=== PATIENT | female | born 1940 | race Caucasian/White ===

== ENCOUNTER 2017-07-10 14:58 | Emergency (ER) | payer MEDICARE ==
--- NOTE | 2017-07-10 15:44 | ERPHSYRPT ---
- History of Present Illness Time Seen by Provider: 07/10/17 15:03 Source: patient, family (daughter, man with whom she has lived for 9 years) Patient Subjective Stated Complaint: pt states "my sugar has been running high" reports it was 219 at home. reports she has been hurting all over and burning up. Triage Nursing Assessment: pt is aox3, pupils perrl, pt is afebrile, pt is short of breath upon ambulation to the exam room, some expiratory wheezes are heard upon auscultation. radial pulses are strong and equal. abd is soft and non tender. an ostomy is present to the left lower quad, stoma is red, colostomy bag is empty at this time, no odor noted. minimal skin irriation/ red rash noted around the appliance. Physician History: CC: feels tired Hx: 76 y/o patient of Dr Chairez. longterm friend brought her to ER. States she has not been herself lately, maybe since picking up her medications from the drug store. Pt reports some headache and fever. No fall or injury. Nonsmoker. She has DM and thought maybe sugar was too high but it is not. Subjective fever. Recent ear drng but did not see doctor or take meds. No V/D. Normal urination. No abd pain. No chest pain. Not confused. More sleepy than usual and just not herself. Allergies/Adverse Reactions: alprazolam [From Xanax] Adverse Reaction (Mild, Verified 07/10/17 15:25) states "see bugs" acetaminophen [From Vicodin] Adverse Reaction (Verified 07/10/17 15:25) CONFUSED,MEAN hydrocodone bitartrate [From Vicodin] Adverse Reaction (Verified 07/10/17 15:25) CONFUSED,MEAN promethazine HCl [From Phenergan] Adverse Reaction (Verified 07/10/17 15:25) Home Medications: Benazepril HCl [Benazepril HCl] 20 mg PO DAILY 07/10/17 [History] Duloxetine HCl [Duloxetine HCl] 60 mg PO DAILY 07/10/17 [History] Gabapentin [Gabapentin] 300 mg PO TID 07/10/17 [History] Hydrocodone/Acetaminophen [Hydrocodone-Acetamin 5-325 mg] 5 mg PO Q4-6HPRN PRN 07/10/17 [History] Metformin HCl [Metformin HCl] 500 mg PO BID 07/10/17 [History] Omeprazole [Omeprazole] 40 mg PO DAILY 07/10/17 [History] Pregabalin [Lyrica 75 mg Cap] 75 mg PO TID 07/10/17 [History] Simvastatin [Simvastatin] 20 mg PO DAILY 07/10/17 [History] Hx Tetanus, Diphtheria Vaccination/Date Given: Yes Hx Influenza Vaccination/Date Given: No Hx Pneumococcal Vaccination/Date Given: No Immunizations Up to Date: Yes - Review of Systems Constitutional: Fever (subjective), Fatigue, Malaise Eyes: No Symptoms, No Vision Changes Ears, Nose, & Throat: Ear Discharge (gone now) Respiratory: No Cough, No Dyspnea Cardiac: No Chest Pain Abdominal/Gastrointestinal: No Abdominal Pain, No Nausea, No Vomiting, No Diarrhea Genitourinary Symptoms: No Dysuria Skin: No Rash Neurological: Headache, No Dizziness, No Focal Weakness, No Parasthesia All Other Systems: Reviewed and Negative - Past Medical History Pertinent Past Medical History: Yes Neurological History: No Pertinent History ENT History: Other Cardiac History: High Cholesterol, Hypertension Respiratory History: No Pertinent History Endocrine Medical History: Diabetes Type II Musculoskeletal History: No Pertinent History GI Medical History: Other History: No Pertinent History Psycho-Social History: No Pertinent History Female Reproductive Disorders: No Pertinent History Other Medical History: bowel obstruction, pt poor historian - Past Surgical History Past Surgical History: Yes Neuro Surgical History: No Pertinent History Cardiac: No Pertinent History Respiratory: No Pertinent History Gastrointestinal: Appendectomy, Cholecystectomy Genitourinary: No Pertinent History Musculoskeletal: No Pertinent History Female Surgical History: Hysterectomy Other Surgical History: eye surgery. OSTOMY PLACED DUE TO BOWEL OBSTRUCTION, pt poor historian - Social History Smoking Status: Never smoker Exposure to second hand smoke: Yes Drug Use: none Patient Lives Alone: No - Female History Hx Now: No - Nursing Vital Signs Nursing Vital Signs: Initial Vital Signs Temperature 98.1 F 07/10/17 15:10 Pulse Rate 101 H 07/10/17 15:10 Respiratory Rate 20 07/10/17 15:10 Blood Pressure 142/104 07/10/17 15:10 O2 Sat by Pulse Oximetry 97 07/10/17 15:10 Pain Scale Pain Intensity 0 - Physical Exam General Appearance: alert, obese, other (pleasant lady, hard of hearing) Eye Exam: PERRL/EOMI Ears, Nose, Throat Exam: moist mucous membranes Neck Exam: normal inspection, non-tender, supple Respiratory Exam: normal breath sounds Cardiovascular Exam: regular rate/rhythm Gastrointestinal/Abdomen Exam: soft, other (viable ostomy), No tenderness, No distention, No mass Extremity Exam: normal inspection, normal range of motion Neurologic Exam: alert, oriented x 3, cooperative, manager of marketing II-XII nml as tested, sensation nml, No motor deficits Skin Exam: warm, dry, No rash SpO2 Interpretation: normal SpO2: 97 Oxygen Delivery: Room Air - Course Nursing assessment & vital signs reviewed: Yes Ordered Tests: Active Orders 24 hr Category Date Time Status Cath for Specimen-Straight STAT Care 07/10/17 15:37 Active IV Insertion STAT Care 07/10/17 15:36 Active CBC W DIFF Stat Lab 07/10/17 16:00 Completed CMP Stat Lab 07/10/17 16:00 Completed CULTURE,URINE Stat Lab 07/10/17 16:25 Received Lactic Acid Stat Lab 07/10/17 16:12 Completed UA W/ MICROSCOPIC Stat Lab 07/10/17 16:25 Completed Medication Summary Generic Name Dose Route Start Last Admin Trade Name Freq PRN Reason Stop Dose Admin Sodium Chloride 1,000 mls @ 50 mls/hr 07/10/17 15:45 07/10/17 16:19 Sodium Chloride 0.9% 1000 Ml IV 08/09/17 15:44 50 mls/hr .Q20H ANASI Administration Ceftriaxone Sodium/Dextrose 1 g in 50 mls @ 100 mls/hr 07/10/17 17:00 17:04 Rocephin 1 Gm-D5w 50 Ml Bag IV 07/10/17 17:29 100 mls/hr STAT STA Administration Discontinued Medications Generic Name Dose Route Start Last Admin Trade Name Freq PRN Reason Stop Dose Admin Ceftriaxone Sodium/Dextrose Confirm 07/10/17 17:02 Rocephin 1 Gm-D5w 50 Ml Bag Administered 07/10/17 17:03 Dose 1 g in 50 mls @ ud IV .STK-MED ONE Lab/Rad Data: Laboratory Result Diagrams 07/10/17 16:00 07/10/17 16:00 Laboratory Results 07/10/17 07/10/17 07/10/17 Range/Units 16:25 16:12 16:00 WBC (4.0-10.5) K/mm3 RBC (4.1-5.4) M/mm3 Hgb (12.0-16.0) gm/dl Hct (35-47) % MCV (78-100) fl MCH (26-32) pg MCHC (32-36) g/dl RDW (11.5-14.0) % Plt Count (150-450) K/mm3 MPV (6-9.5) fl Gran % (36.0-66.0) % Lymphocytes % (24.0-44.0) % Monocytes % (0.0-12.0) % Eosinophils % (0.00-5.0) % Basophils % (0.0-0.4) % Basophils # (0-0.4) Sodium 143 (136-145) mEq/L Potassium 3.6 (3.5-5.1) mEq/L Chloride 106 (98-107) mEq/L Carbon Dioxide 25.2 (21-32) mEq/L Anion Gap 15.3 H (5-15) MEQ/L BUN 13 (9-20) mg/dL Creatinine 1.21 (0.55-1.30) mg/dl Estimated GFR 46 ML/MIN Glucose 115 H (70-110) MG/DL Lactic Acid 1.5 (0.4-2.0) Calcium 8.7 (8.5-10.1) mg/dL Total Bilirubin 0.20 (0.2-1.0) mg/dL AST 19 (15-37) U/L ALT 20 (12-78) U/L Alkaline Phosphatase 80 (46-116) U/L Serum Total Protein 8.0 (6.4-8.2) gm/dL Albumin 3.4 (3.4-5.0) g/dL Ur Collection Type CATH Urine Color YELLOW (YELLOW) Urine Appearance HAZY (CLEAR) Urine pH 5.0 (5-6) Ur Specific [place] 1.010 (1.005-1.025) Urine Protein TRACE (Negative) Urine Ketones NEGATIVE (NEGATIVE) Urine Blood 50 (0-5) Luis/ul Urine Nitrite POSITIVE (NEGATIVE) Urine Bilirubin NEGATIVE (NEGATIVE) Urine Urobilinogen NORMAL (0-1) mg/dL Ur Leukocyte Esterase 1+ (NEGATIVE) Urine Microscopic RBC 2-5 (0-2) /HPF Urine Microscopic WBC 10-15 (0-5) /HPF Ur Epithelial Cells MODERATE (FEW) /HPF Urine Bacteria MANY (NEGATIVE) /HPF Urine Mucus MODERATE (NEGATIVE) /HPF Urine Culture Reflexed YES (NO) Urine Glucose NEGATIVE (NEGATIVE) mg/dL Specimen Received 07/10/17 1625 07/10/17 Range/Units 16:00 WBC 8.9 (4.0-10.5) K/mm3 RBC 4.07 L (4.1-5.4) M/mm3 Hgb 12.9 (12.0-16.0) gm/dl Hct 40.5 (35-47) % MCV 99.5 (78-100) fl MCH 31.6 (26-32) pg MCHC 31.9 L (32-36) g/dl RDW 14.9 H (11.5-14.0) % Plt Count 261 (150-450) K/mm3 MPV 11.2 H (6-9.5) fl Gran % 74.9 H (36.0-66.0) % Lymphocytes % 17.7 L (24.0-44.0) % Monocytes % 6.3 (0.0-12.0) % Eosinophils % 0.9 (0.00-5.0) % Basophils % 0.2 (0.0-0.4) % Basophils # 0.02 (0-0.4) Sodium (136-145) mEq/L Potassium (3.5-5.1) mEq/L Chloride (98-107) mEq/L Carbon Dioxide (21-32) mEq/L Anion Gap (5-15) MEQ/L BUN (9-20) mg/dL Creatinine (0.55-1.30) mg/dl Estimated GFR ML/MIN Glucose (70-110) MG/DL Lactic Acid (0.4-2.0) Calcium (8.5-10.1) mg/dL Total Bilirubin (0.2-1.0) mg/dL AST (15-37) U/L ALT (12-78) U/L Alkaline Phosphatase (46-116) U/L Serum Total Protein (6.4-8.2) gm/dL Albumin (3.4-5.0) g/dL Ur Collection Type Urine Color (YELLOW) Urine Appearance (CLEAR) Urine pH (5-6) Ur Specific [place] (1.005-1.025) Urine Protein (Negative) Urine Ketones (NEGATIVE) Urine Blood (0-5) Luis/ul Urine Nitrite (NEGATIVE) Urine Bilirubin (NEGATIVE) Urine Urobilinogen (0-1) mg/dL Ur Leukocyte Esterase (NEGATIVE) Urine Microscopic RBC (0-2) /HPF Urine Microscopic WBC (0-5) /HPF Ur Epithelial Cells (FEW) /HPF Urine Bacteria (NEGATIVE) /HPF Urine Mucus (NEGATIVE) /HPF Urine Culture Reflexed (NO) Urine Glucose (NEGATIVE) mg/dL Specimen Received - Progress Progress Note: 07/10/17 15:43 Nonspecific symptoms. No focal neurological deficits. Maybe worse when picked up meds. They do not know any of her meds. Think she takes 6 kinds. Pharmacy records show [facility] pick[facility] of norco and lyrica recently. Will check labs and UA. CT head not indicated at present. 07/10/17 17:18 Doing well. Not confused. Wants to go home. Pt and daughter given test results. ADvised cut norco to half pill. Cut lyrica from TID to BID. Rx keflex for UTI. Follow up with Dr Chairez. Counseled pt/family regarding: lab results, diagnosis, need for follow-up - Departure Time of Disposition: 17:18 Departure Disposition: Home Clinical Impression: UTI (urinary tract infection) Condition: Stable Critical Care Time: No Referrals: MARKY CHAIREZ [Primary Care Provider] - Instructions: Urinary Tract Infection, Adult (DC) Additional Instructions: Cut norco to half tablet each dose. Change lyrica form three times a day to two times a day. Rx keflex to start tomorrow for UTI. Follow up with Dr Chairez next week. Prescriptions: Cephalexin Mh 500 mg [Keflex 500 mg] 1 cap PO QID #28 capsule
[2017-07-10] MEDS ORDERED: Sodium Chloride 0.9% 1000 ML 1,000 ML IV SCH (15:45)
[2017-07-10] MEDS ORDERED: Sodium Chloride 0.9% 1000 ML 1,000 ML ONE (16:03)
[2017-07-10 16:13] LABS: BASOPHIL % 0.2 % (0.0-0.4); Basophil (Absolute #) 0.02 (0-0.4); Eosinophil % 0.9 % (0.00-5.0); Eosinophil (Absolute #) 0.08 (0-0.5); Granulocyte Absolute (ANC) 6.67 (1.4-6.9); Granulocytes % 74.9 % (36.0-66.0); Hematocrit 40.5 % (35-47); Hemoglobin 12.9 gm/dl (12.0-16.0); Lymphocyte (Absolute #) 1.58 (1.0-4.6); Lymphocytes % 17.7 % (24.0-44.0); Mean Cell Volume 99.5 fl (78-100); Mean Corpuscular Hgb Concent. 31.9 g/dl (32-36); Mean Platelet Volume 11.2 fl (6-9.5); Monocyte (Absolute #) 0.56 (0.0-1.3); Monocytes % 6.3 % (0.0-12.0); Platelet Count 261 K/mm3 (150-450); Red Blood Count 4.07 M/mm3 (4.1-5.4); Red Cell Distribution Width 14.9 % (11.5-14.0); White Blood Count 8.9 K/mm3 (4.0-10.5)
[2017-07-10 16:21] VITALS: PULSE 90
[2017-07-10 16:30] LABS: Mean Corpuscular Hemoglobin 31.6 pg (26-32)
[2017-07-10 16:47] LABS: Appearance HAZY (CLEAR); Bilirubin NEGATIVE (NEGATIVE); Glucose NEGATIVE (NEGATIVE); Ketones NEGATIVE (NEGATIVE); Leukocyte Esterase 1+ (NEGATIVE); Nitrite POSITIVE (NEGATIVE); Protein,Urine Dip TRACE (Negative); Urobilinogen NORMAL mg/dL (0-1)
[2017-07-10 16:48] LABS: Bacteria MANY /HPF (NEGATIVE); Blood 50 Ery/ul (0-5); Epithelial Cells MODERATE /HPF (FEW); Mucus MODERATE /HPF (NEGATIVE)
[2017-07-10] MEDS ORDERED: ROCEPHIN 1 Gm-D5w 50 ml Bag** 1 G/50 ML IVPB IV STA (17:00)
[2017-07-10] MEDS ORDERED: ROCEPHIN 1 Gm-D5w 50 ml Bag** 1 G/50 ML IVPB IV ONE (17:02)
[2017-07-10 17:13] LABS: ALBUMIN 3.4 g/dL (3.4-5.0); ANION GAP 15.3 MEQ/L (5-15); BILIRUBIN,TOTAL 0.2 mg/dL (0.2-1.0); Calcium 8.7 mg/dL (8.5-10.1); Carbon Dioxide 25.2 mEq/L (21-32); Creatinine 1 1.21 mg/dl (0.55-1.30); Potassium 3.6 mEq/L (3.5-5.1)
[2017-07-10 19:01] VITALS: BP 131/70; O2SAT 95
== END 2017-07-10 19:01 | disposition home or self-care (01) ==
LOC: ED 14:58
DX: N39.0 Urinary tract infection, site not specified (principal); E11.9 Type 2 diabetes mellitus without complications; Z79.4 Long term (current) use of insulin; I10 Essential (primary) hypertension; Z79.899 Other long term (current) drug therapy
CPT/HCPCS: 36000; 36415; 80053; 81000; 82962; 83605; 85025; 87077; 87086; 87186; 96360; 96361; 96365; 99284; J0696; P9612

== ENCOUNTER 2017-07-22 14:10 | Inpatient (IN) | payer MEDICARE ==
[2017-07-22 14:47] LABS: Lactic Acid 1.5 (0.4-2.0); VBG BASE EXCESS -1.3 (-2.0-2.0); VBG CARBOXYHEMOGLOBIN 2.8 % T HGB (0.0-6.9); VBG HCO3- 23.7 meq/L (22-28); VBG HEMOGLOBIN 13.6; VBG PCO2 40 mm/Hg (42-55); VBG PO2 38 mm/Hg (25-40); VBG POTASSIUM 3.6 (3.5-5.1); VBG pH 7.38 (7.32-7.42)
[2017-07-22] MEDS ORDERED: Sodium Chloride 0.9% 1000 ML 1,000 ML (14:54)
[2017-07-22] MEDS: Sodium Chloride 0.9% 1000 ML 1,000 ML IV ×2 (14:55→18:45)
[2017-07-22] MEDS ORDERED: DUONEB 0.5-3 MG/3 ml Neb IH (15:00)
[2017-07-22 15:02] LABS: BASOPHIL % 0.2 % (0.0-0.4); Basophil (Absolute #) 0.01 (0-0.4); Eosinophil % 1.4 % (0.00-5.0); Eosinophil (Absolute #) 0.06 (0-0.5); Granulocyte Absolute (ANC) 2.42 (1.4-6.9); Granulocytes % 57.3 % (36.0-66.0); Hemoglobin 12.6 gm/dl (12.0-16.0); Lymphocyte (Absolute #) 1.46 (1.0-4.6); Lymphocytes % 34.5 % (24.0-44.0); Mean Cell Volume 98.8 fl (78-100); Mean Corpuscular Hemoglobin 31.1 pg (26-32); Mean Corpuscular Hgb Concent. 31.5 g/dl (32-36); Mean Platelet Volume 11.2 fl (6-9.5); Monocyte (Absolute #) 0.28 (0.0-1.3); Monocytes % 6.6 % (0.0-12.0); Platelet Count 242 K/mm3 (150-450); Red Blood Count 4.05 M/mm3 (4.1-5.4); White Blood Count 4.2 K/mm3 (4.0-10.5)
[2017-07-22] MEDS: DUONEB 0.5-3 MG/3 ml Neb IH (15:03)
[2017-07-22 15:13] LABS: ALBUMIN 3.3 g/dL (3.4-5.0); ALKALINE PHOSPHATASE 78 U/L (46-116); ANION GAP 14.2 MEQ/L (5-15); BLOOD UREA NITROGEN 10 mg/dL (9-20); CHLORIDE 109 mEq/L (98-107); Calcium 7.9 mg/dL (8.5-10.1); Creatinine 1 1.01 mg/dl (0.55-1.30); EST GLOMERULAR FILTRATION RATE 57 ML/MIN; Glucose 135 MG/DL (70-110); Potassium 3.6 mEq/L (3.5-5.1); SGOT/AST 33 U/L (15-37); SGPT/ALT 30 U/L (12-78); SODIUM 144 mEq/L (136-145); Total Protein 7.2 gm/dL (6.4-8.2)
[2017-07-22] MEDS ORDERED: solu-MEDROL 125 MG (15:19)
[2017-07-22 15:21] LABS: NT PRO BNP 41 pg/ml (0-450)
[2017-07-22 15:24] LABS: ADD MANUAL DIFF? YES (NO)
[2017-07-22] MEDS: solu-MEDROL 125 MG IV ×3 (15:31→23:45)
[2017-07-22 16:00] LABS: BAND 1 % (0.0-2.0); Lymphocytes 31 % (24-44); Monocyte 4 % (0.0-12.0); Neutrophils 64 % (36.0-66.0); Total Cells Counted 100
[2017-07-22 16:01] LABS: Platelet Estimate NORMAL (NORMAL)
[2017-07-22 18:05] LABS: HEMOGLOBIN A1C 6.3 (4.5-6.2)
[2017-07-22] MEDS: ROCEPHIN 1 Gm-D5w 50 ml Bag** 1 G/50 ML IVPB IV (18:13)
[2017-07-22] MEDS ORDERED: Zocor 10MG PO (23:00)
[2017-07-22] MEDS ORDERED: Zanaflex 4 MG PO (23:00)
[2017-07-22] MEDS ORDERED: Lopressor 25MG Tab PO (23:00)
[2017-07-22] MEDS ORDERED: REMERON 30 MG PO (23:00)
[2017-07-22] MEDS ORDERED: DESYREL 50 MG PO (23:00)
[2017-07-22] MEDS ORDERED: zyPREXA 5MG TABLET PO (23:00)
[2017-07-22] MEDS ORDERED: Tegretol 200 MG PO (23:00)
[2017-07-22] MEDS ORDERED: Nitrostat 0.4 MG Tablet SL (23:00)
[2017-07-22] MEDS: LYRICA 75 MG CAP PO (23:45)
[2017-07-22] MEDS: Ambien 5 MG Tablet PO (23:46)
[2017-07-23 04:59] LABS: BASOPHIL % 0.6 % (0.0-0.4); Basophil (Absolute #) 0.02 (0-0.4); Eosinophil (Absolute #) 0 (0-0.5); Granulocytes % 72.5 % (36.0-66.0); Hematocrit 40.3 % (35-47); Hemoglobin 12.9 gm/dl (12.0-16.0); Lymphocyte (Absolute #) 0.81 (1.0-4.6); Lymphocytes % 25.6 % (24.0-44.0); Mean Cell Volume 99.3 fl (78-100); Mean Platelet Volume 11.8 fl (6-9.5); Monocyte (Absolute #) 0.04 (0.0-1.3); Monocytes % 1.3 % (0.0-12.0); Platelet Count 244 K/mm3 (150-450); Red Blood Count 4.06 M/mm3 (4.1-5.4); Red Cell Distribution Width 15.5 % (11.5-14.0); White Blood Count 3.2 K/mm3 (4.0-10.5)
[2017-07-23 05:01] LABS: ADD MANUAL DIFF? NO (NO); Mean Corpuscular Hemoglobin 31.7 pg (26-32)
[2017-07-23] MEDS: solu-MEDROL 125 MG IV ×5 (05:34→23:43)
[2017-07-23 06:10] LABS: ALBUMIN 3.1 g/dL (3.4-5.0); ALKALINE PHOSPHATASE 70 U/L (46-116); ANION GAP 17.2 MEQ/L (5-15); BLOOD UREA NITROGEN 11 mg/dL (9-20); CHLORIDE 107 mEq/L (98-107); Calcium 7.9 mg/dL (8.5-10.1); Carbon Dioxide 21.3 mEq/L (21-32); Creatinine 1 1.16 mg/dl (0.55-1.30); EST GLOMERULAR FILTRATION RATE 48 ML/MIN; Glucose 272 MG/DL (70-110); SGOT/AST 32 U/L (15-37); SGPT/ALT 29 U/L (12-78); SODIUM 142 mEq/L (136-145); Total Protein 7.6 gm/dL (6.4-8.2)
[2017-07-23] MEDS ORDERED: Sodium Chloride 0.9% 1000 ML 1,000 ML (06:26)
[2017-07-23] MEDS: Sodium Chloride 0.9% 1000 ML 1,000 ML IV ×2 (06:26→21:22)
[2017-07-23] MEDS: DUONEB 0.5-3 MG/3 ml Neb IH (06:45)
[2017-07-23] MEDS: NORCO 5/325 MG PO ×2 (07:48→19:20)
[2017-07-23] MEDS: NovoLOG Insulin SQ ×2 (07:49→11:56)
[2017-07-23] MEDS: ROCEPHIN 1 Gm-D5w 50 ml Bag** 1 G/50 ML IVPB IV (09:54)
[2017-07-23] MEDS: Protonix 40MG Tablet PO (09:55)
[2017-07-23] MEDS: Lotensin 10 MG PO (09:55)
[2017-07-23] MEDS: LYRICA 75 MG CAP PO ×2 (09:55→21:23)
[2017-07-23 10:23] LABS: TROPONIN < 0.017 ng/ml (0.000-0.056)
[2017-07-23 10:26] LABS: INFLUENZA B NEGATIVE (NEGATIVE); RESPIRATORY SYNCTIAL VIRUS NEGATIVE (Negative)
[2017-07-23] MEDS: Zithromax 500 MG/ 250 ML NaCl Premix 500 MG/250 ML IVPB IV (10:26)
[2017-07-23 10:28] LABS: INFLUENZA A POSITIVE (NEGATIVE)
[2017-07-23] MEDS: OSELTAMIVIR PHOSPHATE 30 MG CAP PO ×2 (11:23→21:23)
[2017-07-23] MEDS: ZOCOR 20MG PO (21:23)
[2017-07-23] MEDS: Ambien 5 MG Tablet PO (21:24)
[2017-07-24] MEDS: solu-MEDROL 125 MG IV ×3 (05:24→17:21)
[2017-07-24] MEDS: LYRICA 75 MG CAP PO ×2 (07:55→21:05)
[2017-07-24] MEDS: Lotensin 10 MG PO (07:55)
[2017-07-24] MEDS: Sodium Chloride 0.9% 1000 ML 1,000 ML IV ×2 (07:55→21:04)
[2017-07-24] MEDS: Protonix 40MG Tablet PO (07:55)
[2017-07-24] MEDS: ROCEPHIN 1 Gm-D5w 50 ml Bag** 1 G/50 ML IVPB IV (07:55)
[2017-07-24] MEDS: OSELTAMIVIR PHOSPHATE 30 MG CAP PO ×2 (07:56→21:05)
[2017-07-24] MEDS: NORCO 5/325 MG PO ×2 (08:21→21:05)
[2017-07-24] MEDS: Zithromax 500 MG/ 250 ML NaCl Premix 500 MG/250 ML IVPB IV (08:40)
[2017-07-24] MEDS: Cymbalta 30 MG Capsule PO (11:48)
[2017-07-24] MEDS: NovoLOG Insulin SQ ×2 (11:48→21:29)
[2017-07-24] MEDS: NEURONTIN 300 MG PO ×2 (15:29→21:05)
[2017-07-24] MEDS: ZOCOR 20MG PO (21:05)
[2017-07-24] MEDS: Ambien 5 MG Tablet PO (21:12)
[2017-07-25] MEDS: solu-MEDROL 125 MG IV ×5 (00:02→23:26)
[2017-07-25 06:18] LABS: ADD MANUAL DIFF? YES (NO); Granulocyte Absolute (ANC) 8.48 (1.4-6.9); Hematocrit 35.1 % (35-47); Hemoglobin 11.4 gm/dl (12.0-16.0); Mean Cell Volume 98.6 fl (78-100); Mean Corpuscular Hgb Concent. 32.5 g/dl (32-36); Mean Platelet Volume 11.9 fl (6-9.5); Platelet Count 199 K/mm3 (150-450); Red Blood Count 3.56 M/mm3 (4.1-5.4); Red Cell Distribution Width 15.4 % (11.5-14.0); White Blood Count 9.5 K/mm3 (4.0-10.5)
[2017-07-25 06:34] LABS: ALBUMIN 2.8 g/dL (3.4-5.0); ALKALINE PHOSPHATASE 59 U/L (46-116); ANION GAP 13.5 MEQ/L (5-15); BLOOD UREA NITROGEN 20 mg/dL (9-20); CHLORIDE 110 mEq/L (98-107); Calcium 7.4 mg/dL (8.5-10.1); Carbon Dioxide 22.3 mEq/L (21-32); Creatinine 1 0.99 mg/dl (0.55-1.30); EST GLOMERULAR FILTRATION RATE 58 ML/MIN; Glucose 230 MG/DL (70-110); SGOT/AST 50 U/L (15-37); SGPT/ALT 47 U/L (12-78); SODIUM 142 mEq/L (136-145)
[2017-07-25] MEDS: Sodium Chloride 0.9% 1000 ML 1,000 ML IV ×2 (06:58→17:39)
[2017-07-25 07:32] LABS: Lymphocytes 11 % (24-44); Monocyte 2 % (0.0-12.0); Neutrophils 87 % (36.0-66.0); Total Cells Counted 100
[2017-07-25 07:33] LABS: ANISOCYTOSIS 1+; Platelet Estimate NORMAL (NORMAL); Poikilocytosis 1+; Polychromasia RARE
[2017-07-25] MEDS: NovoLOG Insulin SQ ×3 (07:50→21:25)
[2017-07-25] MEDS: OSELTAMIVIR PHOSPHATE 30 MG CAP PO ×2 (09:25→21:25)
[2017-07-25] MEDS: LYRICA 75 MG CAP PO ×2 (09:25→21:24)
[2017-07-25] MEDS: Protonix 40MG Tablet PO (09:25)
[2017-07-25] MEDS: ROCEPHIN 1 Gm-D5w 50 ml Bag** 1 G/50 ML IVPB IV (09:25)
[2017-07-25] MEDS: NEURONTIN 300 MG PO ×3 (09:25→21:24)
[2017-07-25] MEDS: Lotensin 10 MG PO (09:25)
[2017-07-25] MEDS: Zithromax 500 MG/ 250 ML NaCl Premix 500 MG/250 ML IVPB IV (10:27)
[2017-07-25] MEDS: DUONEB 0.5-3 MG/3 ml Neb IH (12:09)
[2017-07-25] MEDS: Cymbalta 30 MG Capsule PO (12:13)
[2017-07-25] MEDS: ZOCOR 20MG PO (21:24)
[2017-07-25] MEDS: Ambien 5 MG Tablet PO (21:24)
[2017-07-26] MEDS: NORCO 5/325 MG PO ×2 (01:56→23:31)
[2017-07-26] MEDS: solu-MEDROL 125 MG IV ×4 (05:34→23:31)
[2017-07-26 05:54] LABS: Granulocyte Absolute (ANC) 7.09 (1.4-6.9); Hematocrit 34.5 % (35-47); Hemoglobin 11.3 gm/dl (12.0-16.0); Mean Cell Volume 96.9 fl (78-100); Mean Corpuscular Hemoglobin 31.7 pg (26-32); Mean Corpuscular Hgb Concent. 32.8 g/dl (32-36); Mean Platelet Volume 11.9 fl (6-9.5); Platelet Count 239 K/mm3 (150-450); Red Blood Count 3.56 M/mm3 (4.1-5.4); White Blood Count 8.2 K/mm3 (4.0-10.5)
[2017-07-26 06:01] LABS: ALBUMIN 2.8 g/dL (3.4-5.0); ALKALINE PHOSPHATASE 59 U/L (46-116); ANION GAP 12.7 MEQ/L (5-15); BLOOD UREA NITROGEN 21 mg/dL (9-20); CHLORIDE 109 mEq/L (98-107); Calcium 7.6 mg/dL (8.5-10.1); Carbon Dioxide 25.3 mEq/L (21-32); Creatinine 1 1.16 mg/dl (0.55-1.30); EST GLOMERULAR FILTRATION RATE 48 ML/MIN; Glucose 283 MG/DL (70-110); Potassium 3.5 mEq/L (3.5-5.1); SGOT/AST 42 U/L (15-37); SGPT/ALT 63 U/L (12-78); SODIUM 144 mEq/L (136-145); Total Protein 6.2 gm/dL (6.4-8.2)
[2017-07-26 06:06] LABS: ADD MANUAL DIFF? YES (NO)
[2017-07-26 07:09] LABS: BAND 3 % (0.0-2.0); Lymphocytes 10 % (24-44); Metamyelocyte 2 %; Monocyte 1 % (0.0-12.0); Neutrophils 84 % (36.0-66.0); Nucleated Red Blood Cell 1 %; Total Cells Counted 100
[2017-07-26 07:11] LABS: ANISOCYTOSIS 1+; Platelet Estimate NORMAL (NORMAL); Tear Drop Cells 1+
[2017-07-26] MEDS: NovoLOG Insulin SQ ×3 (07:52→21:10)
[2017-07-26] MEDS: ROCEPHIN 1 Gm-D5w 50 ml Bag** 1 G/50 ML IVPB IV (07:53)
[2017-07-26] MEDS: OSELTAMIVIR PHOSPHATE 30 MG CAP PO ×2 (09:45→21:10)
[2017-07-26] MEDS: Lotensin 10 MG PO (09:45)
[2017-07-26] MEDS: LYRICA 75 MG CAP PO ×2 (09:45→21:10)
[2017-07-26] MEDS: NEURONTIN 300 MG PO ×3 (09:46→21:10)
[2017-07-26] MEDS: Protonix 40MG Tablet PO (09:46)
[2017-07-26] MEDS: NORVASC 5 MG PO (09:46)
[2017-07-26] MEDS: Zithromax 500 MG/ 250 ML NaCl Premix 500 MG/250 ML IVPB IV (09:47)
[2017-07-26] MEDS: ZOCOR 20MG PO (21:10)
[2017-07-26] MEDS: Ambien 5 MG Tablet PO (21:11)
[2017-07-27] MEDS: solu-MEDROL 125 MG IV ×2 (05:30→12:00)
[2017-07-27] MEDS: DUONEB 0.5-3 MG/3 ml Neb IH (07:30)
[2017-07-27] MEDS: NovoLOG Insulin SQ ×4 (08:22→21:37)
[2017-07-27] MEDS: NEURONTIN 300 MG PO ×3 (11:59→21:30)
[2017-07-27] MEDS: Protonix 40MG Tablet PO (11:59)
[2017-07-27] MEDS: Lantus Insulin SQ (11:59)
[2017-07-27] MEDS: LYRICA 75 MG CAP PO ×2 (11:59→21:29)
[2017-07-27] MEDS: NORVASC 5 MG PO (11:59)
[2017-07-27] MEDS: Lotensin 10 MG PO (11:59)
[2017-07-27] MEDS: ROCEPHIN 1 Gm-D5w 50 ml Bag** 1 G/50 ML IVPB IV (12:01)
[2017-07-27] MEDS: OSELTAMIVIR PHOSPHATE 30 MG CAP PO ×2 (12:02→21:29)
[2017-07-27] MEDS: Zithromax 500 MG/ 250 ML NaCl Premix 500 MG/250 ML IVPB IV (13:12)
[2017-07-27] MEDS: Zithromax 250 MG TABLET PO (16:53)
[2017-07-27] MEDS: DELTASONE 20 MG PO (17:55)
[2017-07-27] MEDS: ZOCOR 20MG PO (21:29)
[2017-07-27] MEDS: Ambien 5 MG Tablet PO (21:30)
[2017-07-28 05:41] LABS: Hematocrit 37.8 % (35-47); Hemoglobin 12.3 gm/dl (12.0-16.0); Mean Cell Volume 95.5 fl (78-100); Mean Corpuscular Hgb Concent. 32.5 g/dl (32-36); Mean Platelet Volume 11.3 fl (6-9.5); Platelet Count 245 K/mm3 (150-450); Red Blood Count 3.96 M/mm3 (4.1-5.4); Red Cell Distribution Width 14.7 % (11.5-14.0); White Blood Count 6.8 K/mm3 (4.0-10.5)
[2017-07-28 05:56] LABS: ANION GAP 9.4 MEQ/L (5-15); BLOOD UREA NITROGEN 29 mg/dL (9-20); CHLORIDE 107 mEq/L (98-107); Calcium 7.2 mg/dL (8.5-10.1); Carbon Dioxide 28.8 mEq/L (21-32); Creatinine 1 1.24 mg/dl (0.55-1.30); EST GLOMERULAR FILTRATION RATE 45 ML/MIN; Glucose 252 MG/DL (70-110); Potassium 3.4 mEq/L (3.5-5.1); SODIUM 142 mEq/L (136-145)
[2017-07-28] MEDS: Lantus Insulin SQ (07:52)
[2017-07-28] MEDS: NovoLOG Insulin SQ ×3 (07:52→22:21)
[2017-07-28] MEDS: NEURONTIN 300 MG PO ×3 (09:27→22:21)
[2017-07-28] MEDS: Protonix 40MG Tablet PO (09:27)
[2017-07-28] MEDS: NORVASC 5 MG PO (09:27)
[2017-07-28] MEDS: LYRICA 75 MG CAP PO ×2 (09:27→22:21)
[2017-07-28] MEDS: DELTASONE 20 MG PO (09:27)
[2017-07-28] MEDS: Lotensin 10 MG PO (09:27)
[2017-07-28] MEDS: ROCEPHIN 1 Gm-D5w 50 ml Bag** 1 G/50 ML IVPB IV (09:27)
[2017-07-28] MEDS: NON-FORMULARY ITEM PO ×2 (09:27→22:27)
[2017-07-28] MEDS: ZOCOR 20MG PO (22:21)
[2017-07-28] MEDS: Ambien 5 MG Tablet PO (22:21)
[2017-07-29] MEDS: Lantus Insulin SQ (07:29)
[2017-07-29] MEDS ORDERED: OMNICEF 300 MG PO (09:00)
[2017-07-29] MEDS: DELTASONE 20 MG PO (09:05)
[2017-07-29] MEDS: Protonix 40MG Tablet PO (09:05)
[2017-07-29] MEDS: LYRICA 75 MG CAP PO (09:05)
[2017-07-29] MEDS: NORVASC 5 MG PO (09:05)
[2017-07-29] MEDS: NEURONTIN 300 MG PO ×2 (09:05→15:14)
[2017-07-29] MEDS: Lotensin 10 MG PO (09:06)
[2017-07-29] MEDS: NON-FORMULARY ITEM PO (09:06)
[2017-07-29] MEDS: NovoLOG Insulin SQ (17:01)
== END 2017-07-29 18:25 | disposition home health service (06) ==
LOC: ED 14:10 → MED SURG 16:53
CPT/HCPCS: 36000; 36415; 71045; 80048; 80053; 82805; 82962; 83036; 83605; 83880; 84484; 85025; 85027; 87040; 87631; 93005; 93041; 93268; 94150; 94640; 94760; 97161-GP; 97530-GP; 99285; G0378; J0456; J0696; J2930

== ENCOUNTER 2017-09-05 11:27 | Emergency (ER) | payer MEDICARE ==
[2017-09-05] MEDS ORDERED: Ativan 2 MG/1 ML VIAL SL ONE (11:55)
--- NOTE | 2017-09-05 12:03 | ERPHSYRPT ---
- History of Present Illness Time Seen by Provider: 09/05/17 11:35 Source: patient, family (friend of 10 years) Patient Subjective Stated Complaint: pateint states had felt shaky, nervous since last wednesday. [facility] doctor took her off her nerve med recently and has felt bad since then. denies any pain. Triage Nursing Assessment: ambulated to room. skin w/d, color normal, resp easy. patient somewhat shaky at present time. denies any pain. Physician History: CC: nerves Hx: 76 y/o patient of Dr Chairez. She came to ER accompanied by her male partner with whom she has lived for 10 years. She states she has a lot on her mind. She feels nervous, shaky, anxious. No suicide thoughts or thoughts of self harm. She has been on and off nerve pills for a long time. She is not currently on nerve pills. Not sure what she used to take but it helped but it was stopped a month or two ago when she was in the hospital. She has been upset for a week. She missed her appt with Dr Chairez as she felt bad. Feels hot and cold at times. She is hard of hearing. Timing/Duration: week(s) (1) Severity: severe Allergies/Adverse Reactions: alprazolam [From Xanax] Adverse Reaction (Mild, Verified 07/10/17 15:25) states "see bugs" acetaminophen [From Vicodin] Adverse Reaction (Verified 07/10/17 15:25) CONFUSED,MEAN hydrocodone bitartrate [From Vicodin] Adverse Reaction (Verified 07/10/17 15:25) CONFUSED,MEAN promethazine HCl [From Phenergan] Adverse Reaction (Verified 07/10/17 15:25) Home Medications: Benazepril HCl 20 mg PO DAILY 07/10/17 [History] Hydrocodone/Acetaminophen [Hydrocodone-Acetamin 5-325 mg] 1 tab PO Q4-6HPRN PRN 07/10/17 [History] Metformin HCl 250 mg PO BID 07/10/17 [History] Omeprazole 40 mg PO DAILY 07/10/17 [History] Pregabalin [Lyrica 75 mg Cap] 75 mg PO BID 07/10/17 [History] Simvastatin 20 mg PO DAILY 07/10/17 [History] Zolpidem Tartrate [Ambien] 5 mg PO HS 07/22/17 [History] Gabapentin 300 mg PO TID 07/24/17 [History] Hx Tetanus, Diphtheria Vaccination/Date Given: Yes Hx Influenza Vaccination/Date Given: No Hx Pneumococcal Vaccination/Date Given: No - Review of Systems Constitutional: Fever, Chills, Malaise Eyes: No Symptoms Ears, Nose, & Throat: No Symptoms Respiratory: No Cough, No Dyspnea Cardiac: No Chest Pain Abdominal/Gastrointestinal: No Abdominal Pain, No Nausea, No Vomiting Genitourinary Symptoms: No Dysuria Skin: No Rash Neurological: No Headache Psychological: Anxiety, Depression (weight loss, trouble sleeping, a lot on her mind), Emotional Lability, No Suicidal Ideations All Other Systems: Reviewed and Negative - Past Medical History Pertinent Past Medical History: Yes Neurological History: No Pertinent History ENT History: Other Cardiac History: Angina, High Cholesterol, Hypertension Respiratory History: No Pertinent History Endocrine Medical History: Diabetes Type II Musculoskeletal History: No Pertinent History GI Medical History: Other History: No Pertinent History Psycho-Social History: No Pertinent History Female Reproductive Disorders: No Pertinent History Other Medical History: bowel obstruction, pt poor historian, [facility] - Past Surgical History Past Surgical History: Yes Neuro Surgical History: No Pertinent History Cardiac: No Pertinent History Respiratory: No Pertinent History Gastrointestinal: Appendectomy, Cholecystectomy, Colon Resection Genitourinary: No Pertinent History Musculoskeletal: No Pertinent History Female Surgical History: Hysterectomy Other Surgical History: eye surgery. OSTOMY PLACED DUE TO BOWEL OBSTRUCTION, pt poor historian - Social History Smoking Status: Never smoker Exposure to second hand smoke: Yes (BF smokes) Drug Use: none Patient Lives Alone: No - Female History Hx Now: No - Nursing Vital Signs Nursing Vital Signs: Initial Vital Signs Temperature 98 F 09/05/17 11:35 Pulse Rate 92 H 09/05/17 11:35 Respiratory Rate 20 09/05/17 11:35 Blood Pressure 183/100 09/05/17 11:35 O2 Sat by Pulse Oximetry 96 09/05/17 11:35 Pain Scale Pain Intensity 0 - Physical Exam General Appearance: alert, obese, other (shaky, hard of hearing) Eye Exam: PERRL/EOMI Ears, Nose, Throat Exam: normal ENT inspection, moist mucous membranes Neck Exam: normal inspection, non-tender, supple Respiratory Exam: normal breath sounds, lungs clear Cardiovascular Exam: regular rate/rhythm Gastrointestinal/Abdomen Exam: soft, No tenderness, No distention Back Exam: normal inspection, normal range of motion Extremity Exam: normal inspection, normal range of motion Neurologic Exam: alert, oriented x 3, cooperative, court 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 II-XII 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 as tested, sensation nml, No motor deficits Skin Exam: warm, dry, No rash SpO2 Interpretation: normal SpO2: 96 Oxygen Delivery: Room Air - Course Nursing assessment & vital signs reviewed: Yes EKG Interpreted by Me: RATE (85), Sinus Rhythm, NORMAL AXIS, NORMAL INTERVALS ( QTc 433), NORMAL QRS, NORMAL ST-T Ordered Tests: Active Orders 24 hr Category Date Time Status Cath for Specimen-Straight STAT Care 09/05/17 11:54 Active EKG-ER Only STAT Care 09/05/17 11:55 Active IV Insertion STAT Care 09/05/17 11:55 Active 1800 Calorie ADA Diet 09/05/17 Lunch Active CBC W DIFF Stat Lab 09/05/17 12:23 Completed CMP Stat Lab 09/05/17 12:23 Completed CULTURE,URINE Stat Lab 09/05/17 12:25 Received TSH [TSH, 3RD Generation] Stat Lab 09/05/17 12:23 Completed UA W/ MICROSCOPIC Stat Lab 09/05/17 12:25 Completed Medication Summary Discontinued Medications Generic Name Dose Route Start Last Admin Trade Name Compa PRN Reason Stop Dose Admin Lorazepam 1 mg 09/05/17 11:55 09/05/17 12:07 Ativan 2 Mg/1 Ml Vial SL 09/05/17 11:56 1 mg STAT ONE Administration Lorazepam Confirm 09/05/17 12:06 Ativan 2 Mg/1 Ml Vial Administered 09/05/17 12:07 Dose 2 mg .ROUTE .[employer]-MED ONE Lab/Rad Data: Laboratory Result Diagrams 09/05/17 12:23 09/05/17 12:23 Laboratory Results 09/05/17 09/05/17 09/05/17 Range/Units 12:25 12:23 12:23 WBC 10.0 (4.0-10.5) K/mm3 RBC 3.92 L (4.1-5.4) M/mm3 Hgb 12.6 (12.0-16.0) gm/dl Hct 39.0 (35-47) % MCV 99.5 (78-100) fl MCH 32.1 H (26-32) pg MCHC 32.3 (32-36) g/dl RDW 15.5 H (11.5-14.0) % Plt Count 246 (150-450) K/mm3 MPV 10.8 H (6-9.5) fl Gran % 83.3 H (36.0-66.0) % Lymphocytes % 11.2 L (24.0-44.0) % Monocytes % 4.8 (0.0-12.0) % Eosinophils % 0.5 (0.00-5.0) % Basophils % 0.2 (0.0-0.4) % Basophils # 0.02 (0-0.4) Sodium 142 (137-145) mmol/L Potassium 3.9 (3.5-5.1) mmol/L Chloride 104 (98-107) mEq/L Carbon Dioxide 24 (22-30) mmol/L Anion Gap 17.2 H (5-15) MEQ/L BUN 12 (7-17) mg/dl Creatinine 0.82 (0.52-1.04) mg/dl Estimated GFR > 60 ML/MIN Glucose 149 H (74-106) mg/dL Calcium 8.4 (8.4-10.2) mg/dL Total Bilirubin 0.60 (0.2-1.3) mg/d? AST 29 (14-36) U/L ALT 21 (0-35) U/L Alkaline Phosphatase 71 (38-126) U/L Serum Total Protein 6.9 (6.3-8.2) mg/dl Albumin 3.9 (3.5-5.0) g/dl TSH 3rd Generation 1.860 (0.47-4.68) mIU/L Ur Collection Type CATH Urine Color YELLOW (YELLOW) Urine Appearance CLEAR (CLEAR) Urine pH 5.0 (5-6) Ur Specific [place] 1.015 (1.005-1.025) Urine Protein TRACE (Negative) Urine Ketones MODERATE (NEGATIVE) Urine Blood 5-10 (0-5) Luis/ul Urine Nitrite NEGATIVE (NEGATIVE) Urine Bilirubin SMALL (NEGATIVE) Urine Urobilinogen NORMAL (0-1) mg/dL Ur Leukocyte Esterase TRACE (NEGATIVE) Urine Microscopic RBC 0-2 (0-2) /HPF Urine Microscopic WBC 2-5 (0-5) /HPF Ur Epithelial Cells RARE (FEW) /HPF Urine Bacteria FEW (NEGATIVE) /HPF Urine Mucus MODERATE (NEGATIVE) /HPF Urine Culture Reflexed YES (NO) Urine Glucose NEGATIVE (NEGATIVE) mg/dL Specimen Received 09/04/17 1225 - Progress Progress Note: 09/05/17 12:01 During initial interview with pt and her friend (with RN Lauren) friend asked that she be admitted to the hospital for a few days for shakiness. Discussed possibility of OP treatment with counselling, etc at [facility] where they could help her with transportation. Friend became upset and left ER. 09/05/17 13:53 Pt feels better. Ativna given. She has anxiety. Advised she follow up with Dr Chairez and also [facility]. She has not been taking celexa. Advised she take bottle to see doctor to decide next medication step. Counseled pt/family regarding: lab results, diagnosis, need for follow-up - Departure Time of Disposition: 13:54 Departure Disposition: Home Clinical Impression: Anxiety Condition: Stable Critical Care Time: No Referrals: MARKY CHAIREZ [Primary Care Provider] - Instructions: Anxiety, Adult (DC) Additional Instructions: No driving. Stay with family today. Follow up this week with DR Chairez to discuss your medications. Consider [facility] appointment. Prescriptions: Hydroxyzine HCl 25 mg [Atarax 25 mg] 25 mg PO TID PRN #10 tablet
[2017-09-05] MEDS ORDERED: Ativan 2 MG/1 ML VIAL ONE (12:06)
[2017-09-05 12:25] LABS: BASOPHIL % 0.2 % (0.0-0.4); Basophil (Absolute #) 0.02 (0-0.4); Eosinophil % 0.5 % (0.00-5.0); Eosinophil (Absolute #) 0.05 (0-0.5); Granulocyte Absolute (ANC) 8.37 (1.4-6.9); Granulocytes % 83.3 % (36.0-66.0); Hemoglobin 12.6 gm/dl (12.0-16.0); Lymphocyte (Absolute #) 1.12 (1.0-4.6); Lymphocytes % 11.2 % (24.0-44.0); Mean Cell Volume 99.5 fl (78-100); Mean Corpuscular Hemoglobin 32.1 pg (26-32); Mean Corpuscular Hgb Concent. 32.3 g/dl (32-36); Mean Platelet Volume 10.8 fl (6-9.5); Monocyte (Absolute #) 0.48 (0.0-1.3); Monocytes % 4.8 % (0.0-12.0); Platelet Count 246 K/mm3 (150-450); Red Blood Count 3.92 M/mm3 (4.1-5.4); Red Cell Distribution Width 15.5 % (11.5-14.0)
[2017-09-05 12:33] LABS: Appearance CLEAR (CLEAR); Bacteria FEW /HPF (NEGATIVE); Bilirubin SMALL (NEGATIVE); Epithelial Cells RARE /HPF (FEW); Glucose NEGATIVE (NEGATIVE); Ketones MODERATE (NEGATIVE); Leukocyte Esterase TRACE (NEGATIVE); Mucus MODERATE /HPF (NEGATIVE); Nitrite NEGATIVE (NEGATIVE); Protein,Urine Dip TRACE (Negative); Specific Gravity 1.015 (1.005-1.025); Urobilinogen NORMAL mg/dL (0-1)
[2017-09-05 12:43] LABS: ALBUMIN 3.9 g/dl (3.5-5.0); ALKALINE PHOSPHATASE 71 U/L (38-126); ANION GAP 17.2 MEQ/L (5-15); BLOOD UREA NITROGEN 12 mg/dl (7-17); CHLORIDE 104 mEq/L (98-107); Calcium 8.4 mg/dL (8.4-10.2); Carbon Dioxide 24 mmol/L (22-30); Creatinine 1 0.82 mg/dl (0.52-1.04); Glucose 149 mg/dL (74-106); Potassium 3.9 mmol/L (3.5-5.1); SGOT/AST 29 U/L (14-36); SGPT/ALT 21 U/L (0-35); SODIUM 142 mmol/L (137-145); Total Protein 6.9 mg/dl (6.3-8.2)
[2017-09-05 14:53] VITALS: BP 155/76; PULSE 76; O2SAT 97
== END 2017-09-05 14:53 | disposition home or self-care (01) ==
LOC: ED 11:27
DX: F41.9 Anxiety disorder, unspecified (principal); Z79.899 Other long term (current) drug therapy
CPT/HCPCS: 36000; 36415; 80053; 81000; 84443; 85025; 87086; 93005; 99284; J2060; P9612

== ENCOUNTER 2018-03-29 11:59 | Observation (INO) | payer MEDICARE ==
--- NOTE | 2018-03-29 12:27 | XRAY ---
Indication: Chest pain and short of breath. Comparison: February 21, 2018. Portable chest again demonstrates normal heart and lungs. Bony thorax intact again with mild osteopenia and degenerative changes. No new/acute findings.
[2018-03-29 12:42] LABS: BASOPHIL % 0.3 % (0.0-0.4); Basophil (Absolute #) 0.02 (0-0.4); Eosinophil % 1.3 % (0.00-5.0); Eosinophil (Absolute #) 0.09 (0-0.5); Granulocyte Absolute (ANC) 5.28 (1.4-6.9); Granulocytes % 78.3 % (36.0-66.0); Hemoglobin 12.8 gm/dl (12.0-16.0); Lymphocyte (Absolute #) 1.02 (1.0-4.6); Lymphocytes % 15.1 % (24.0-44.0); Mean Cell Volume 98.2 fl (78-100); Mean Corpuscular Hgb Concent. 33.7 g/dl (32-36); Mean Platelet Volume 10.5 fl (6-9.5); Monocyte (Absolute #) 0.34 (0.0-1.3); Platelet Count 238 K/mm3 (150-450); Red Blood Count 3.87 M/mm3 (4.1-5.4); Red Cell Distribution Width 14.4 % (11.5-14.0); White Blood Count 6.8 K/mm3 (4.0-10.5)
[2018-03-29 12:56] LABS: INR 1.13 (0.8-3.0)
--- NOTE | 2018-03-29 12:57 | ERPHSYRPT ---
- History of Present Illness Time Seen by Provider: 03/29/18 12:52 Historian: patient Patient Subjective Stated Complaint: pt reports she lost her daughter 2 months ago today and one month ago she found her significant other of 9 years in the bathroom of their home. states she has a lot of anxiety lately. reports she woke up at 0200 feeling anxious. she staes that she feels like her chest "wants to close up". pt denies any shortness of breath at this time. Triage Nursing Assessment: pt is aox3, afebrile, pupils perrl, resps easy and non labored, radial pulses strong and equal, pt does not appear in any distress , pt is extremely hard of hearing. skin is pink warm dry. Physician History: This is a 77-year-old white female with history of angina, hyperlipidemia, high blood pressure, diabetes, bowel obstruction who is somewhat hard of hearing She is brought by the paramedics with complaint of chest pain which has been intermittent lasting approximately 10 minutes at a time associated with shortness of breath onset at approximately 2:00 this morning Patient states she might be just having anxiety she states this is the anniversary of a relative's and also a family friend's as well She states she has not been coughing she has had some nauseousness she has no diaphoresis She has no fevers.. Past medical history includes angina, hyperlipidemia, high blood pressure, diabetes, bowel obstruction patient is hard of hearing. Past surgical history includes appendectomy, cholecystectomy, colon resection, cataract surgery, ostomy placed secondary to bowel resection Social history patient denies tobacco alcohol or illicit drug use Timing/Duration: today (2 AM), intermittent Activities at Onset: other (patient was at rest but states that she has an an anniversary of her daughter's ) Quality: pressure Location: other (Left anterior chest) Severity of Pain-Max: mild Severity of Pain-Current: none Modifying Factors: Worsens With: antacids, breathing, coughing, defecating, eating, exertion, lying down, morphine, movement, nitroglycerin, oxygen, palpation, rest, aspirin, sitting up, change in position Associated Symptoms: nausea, shortness of breath, No vomiting, No palpitations, No heartburn, No abdominal pain, No cough, No hurts to breathe, No diaphoresis, No chills, No fever, No fatigue, No weakness, No swelling/lump in chest, No syncope, No rash, No headache, No dizziness, No edema, No back pain Aspirin Treatment Today: 81 mg x 4, provided by EMS Allergies/Adverse Reactions: alprazolam [From Xanax] Adverse Reaction (Mild, Verified 07/10/17 15:25) states "see bugs" acetaminophen [From Vicodin] Adverse Reaction (Verified 07/10/17 15:25) CONFUSED,MEAN hydrocodone bitartrate [From Vicodin] Adverse Reaction (Verified 07/10/17 15:25) CONFUSED,MEAN promethazine HCl [From Phenergan] Adverse Reaction (Verified 07/10/17 15:25) Home Medications: Benazepril HCl 20 mg PO DAILY 07/10/17 [History] Hydrocodone/Acetaminophen [Hydrocodone-Acetamin 5-325 mg] 1 tab PO Q4-6HPRN PRN 07/10/17 [History] Metformin HCl 250 mg PO BID 07/10/17 [History] Omeprazole 40 mg PO DAILY 07/10/17 [History] Pregabalin [Lyrica 75 mg Cap] 75 mg PO BID 07/10/17 [History] Simvastatin 20 mg PO DAILY 07/10/17 [History] Zolpidem Tartrate [Ambien] 5 mg PO HS 07/22/17 [History] Gabapentin 300 mg PO TID 07/24/17 [History] Hx Tetanus, Diphtheria Vaccination/Date Given: Yes Hx Influenza Vaccination/Date Given: No Hx Pneumococcal Vaccination/Date Given: Yes Immunizations Up to Date: Yes - Review of Systems Constitutional: No Fever, No Chills Eyes: No Symptoms Ears, Nose, & Throat: No Symptoms Respiratory: Dyspnea Cardiac: Chest Pain, No Edema, No Palpitations, No Syncope, No Orthopnea Abdominal/Gastrointestinal: Nausea, No Abdominal Pain, No Vomiting, No Diarrhea , No Constipation, No Hematemesis, No Hematochezia, No Melena, No Dysphagia, No Other Genitourinary Symptoms: No Dysuria Musculoskeletal: No Back Pain, No Neck Pain Skin: No Rash Neurological: No Dizziness, No Focal Weakness, No Sensory Changes Psychological: Anxiety, No Alcohol Abuse, No Drug Abuse, No Depression, No Suicidal Ideations, No Homicidal Ideations, No Emotional Lability, No Hallucinations, No Memory Loss, No Mood Changes All Other Systems: Reviewed and Negative - Past Medical History Pertinent Past Medical History: Yes Neurological History: No Pertinent History ENT History: Other Cardiac History: Angina, High Cholesterol, Hypertension Respiratory History: No Pertinent History Endocrine Medical History: Diabetes Type II Musculoskeletal History: No Pertinent History GI Medical History: Other History: No Pertinent History Psycho-Social History: No Pertinent History Female Reproductive Disorders: No Pertinent History Other Medical History: bowel obstruction, pt poor historian, [place] - Past Surgical History Past Surgical History: Yes Neuro Surgical History: No Pertinent History Cardiac: No Pertinent History Respiratory: No Pertinent History Gastrointestinal: Appendectomy, Cholecystectomy, Colon Resection Genitourinary: No Pertinent History Musculoskeletal: No Pertinent History Female Surgical History: Hysterectomy Other Surgical History: eye surgery. OSTOMY PLACED DUE TO BOWEL OBSTRUCTION, pt poor historian - Social History Smoking Status: Never smoker Exposure to second hand smoke: Yes (BF smokes) Drug Use: none Patient Lives Alone: No - Nursing Vital Signs Nursing Vital Signs: Initial Vital Signs Temperature 98.2 F 03/29/18 12:00 Pulse Rate 98 H 03/29/18 12:00 Respiratory Rate 22 03/29/18 12:00 Blood Pressure 121/96 03/29/18 12:00 O2 Sat by Pulse Oximetry 97 03/29/18 12:00 Pain Scale Pain Intensity 0 - Physical Exam General Appearance: no apparent distress, obese Eye Exam: PERRL/EOMI, eyes nml inspection Ears, Nose, Throat Exam: normal ENT inspection, moist mucous membranes Neck Exam: normal inspection, non-tender, supple, full range of motion Respiratory Exam: normal breath sounds, lungs clear, No respiratory distress Cardiovascular Exam: regular rate/rhythm, normal heart sounds Gastrointestinal/Abdomen Exam: soft, No tenderness, No mass Back Exam: normal inspection, No CVA tenderness, No vertebral tenderness Extremity Exam: normal inspection, normal range of motion Neurologic Exam: alert, oriented x 3, dough scaler and mixer II-XII nml as tested Skin Exam: normal color, warm, dry SpO2 Interpretation: normal (96%) SpO2: 96 Oxygen Delivery: Room Air - Course Nursing assessment & vital signs reviewed: Yes EKG Interpreted by Me: RATE (96 bpm), Sinus Rhythm, NORMAL AXIS, 1st degree AV Block, Other (EKG: Sinus rhythm with first-degree AV block, normal axis, no acute ST or T wave changes) - Radiology Exams Chest X-ray Interpretation: Discussed w/ radiologist (normal heart and lungs, bony thorax intact with mild osteopenia and degenerative changes no new/acute findings) - CT Exams Chest CT Interpretation: Discussed w/radiologist (CT of the chest with contrast: Impression: 1. Pulmonary embolus evaluation limited by suboptimal contrast opacification. No large central pulmonary embolism. 2. Stable bibasilar fibrosis/scarring and evidence of old granulomatous disease.3. No new or acute cardiopulmonary abnormalities. 4. Stable fatty liver) Ordered Tests: Active Orders 24 hr Category Date Time Status Accucheck STAT Care 03/29/18 12:06 Active Central Services Tech STAT Care 03/29/18 12:05 Active EKG-ER Only STAT Care 03/29/18 12:04 Active IV Insertion STAT Care 03/29/18 12:04 Active Pulse Oximetry (ED) STAT Care 03/29/18 12:04 Active CHEST 1 VIEW (PORTABLE) Stat Exams 03/29/18 12:05 Completed CHEST WITH CONTRAST [CT] Stat Exams 03/29/18 13:34 Taken CBC W DIFF Stat Lab 03/29/18 12:18 Completed CMP Stat Lab 03/29/18 12:18 Completed D-DIMER QUANTITATION Stat Lab 03/29/18 12:18 Completed NT PRO BNP Stat Lab 03/29/18 12:18 Completed PROTIME WITH INR Stat Lab 03/29/18 12:18 Completed PTT Stat Lab 03/29/18 12:18 Completed TROPONIN Q3H Lab 03/29/18 12:18 Completed TROPONIN Q3H Lab 03/29/18 15:15 Ordered TROPONIN Q3H Lab 03/29/18 18:15 Ordered TROPONIN Q3H Lab 03/29/18 21:15 Ordered TROPONIN Q3H Lab 03/30/18 00:15 Ordered Lab/Rad Data: Laboratory Result Diagrams 03/29/18 12:18 03/29/18 12:18 Laboratory Results 03/29/18 03/29/18 03/29/18 Range/Units 12:18 12:18 12:18 WBC (4.0-10.5) K/mm3 RBC (4.1-5.4) M/mm3 Hgb (12.0-16.0) gm/dl Hct (35-47) % MCV (78-100) fl MCH (26-32) pg MCHC (32-36) g/dl RDW (11.5-14.0) % Plt Count (150-450) K/mm3 MPV (6-9.5) fl Gran % (36.0-66.0) % Eos # (Auto) (0-0.5) Absolute Lymphs (auto) (1.0-4.6) Absolute Monos (auto) (0.0-1.3) Lymphocytes % (24.0-44.0) % Monocytes % (0.0-12.0) % Eosinophils % (0.00-5.0) % Basophils % (0.0-0.4) % Absolute Granulocytes (1.4-6.9) Basophils # (0-0.4) PT 13.1 H (9.95-12.35) SECONDS INR 1.13 (0.8-3.0) APTT (25.3-37.0) SECONDS D-Dimer 781 H* (215-500) ng/mL Sodium 141 (137-145) mmol/L Potassium 5.0 (3.5-5.1) mmol/L Chloride 106 (98-107) mmol/L Carbon Dioxide 27 (22-30) mmol/L Anion Gap 12.4 (5-15) MEQ/L BUN 17 (7-17) mg/dL Creatinine 1.00 (0.52-1.04) mg/dL Estimated GFR 57.1 ML/MIN Glucose 149 H (74-106) mg/dL Calcium 9.1 (8.4-10.2) mg/dL Total Bilirubin 0.40 (0.2-1.3) mg/dL AST 34 (14-36) U/L ALT 28 (0-35) U/L Alkaline Phosphatase 121 (38-126) U/L Troponin I < 0.012 (0.000-0.034) ng/mL NT-Pro-B Natriuret Pep 76.7 (0-1800) pg/mL Serum Total Protein 7.5 (6.3-8.2) g/dL Albumin 4.2 (3.5-5.0) g/dL 03/29/18 Range/Units 12:18 WBC 6.8 (4.0-10.5) K/mm3 RBC 3.87 L (4.1-5.4) M/mm3 Hgb 12.8 (12.0-16.0) gm/dl Hct 38.0 (35-47) % MCV 98.2 (78-100) fl MCH 33.0 H (26-32) pg MCHC 33.7 (32-36) g/dl RDW 14.4 H (11.5-14.0) % Plt Count 238 (150-450) K/mm3 MPV 10.5 H (6-9.5) fl Gran % 78.3 H (36.0-66.0) % Eos # (Auto) 0.09 (0-0.5) Absolute Lymphs (auto) 1.02 (1.0-4.6) Absolute Monos (auto) 0.34 (0.0-1.3) Lymphocytes % 15.1 L (24.0-44.0) % Monocytes % 5.0 (0.0-12.0) % Eosinophils % 1.3 (0.00-5.0) % Basophils % 0.3 (0.0-0.4) % Absolute Granulocytes 5.28 (1.4-6.9) Basophils # 0.02 (0-0.4) PT (9.95-12.35) SECONDS INR (0.8-3.0) APTT (25.3-37.0) SECONDS D-Dimer (215-500) ng/mL Sodium (137-145) mmol/L Potassium (3.5-5.1) mmol/L Chloride (98-107) mmol/L Carbon Dioxide (22-30) mmol/L Anion Gap (5-15) MEQ/L BUN (7-17) mg/dL Creatinine (0.52-1.04) mg/dL Estimated GFR ML/MIN Glucose (74-106) mg/dL Calcium (8.4-10.2) mg/dL Total Bilirubin (0.2-1.3) mg/dL AST (14-36) U/L ALT (0-35) U/L Alkaline Phosphatase (38-126) U/L Troponin I (0.000-0.034) ng/mL NT-Pro-B Natriuret Pep (0-1800) pg/mL Serum Total Protein (6.3-8.2) g/dL Albumin (3.5-5.0) g/dL - Progress Progress: improved Progress Note: 03/29/18 13:53 This is a 77-year-old white female with history of angina, hyperlipidemia, high blood pressure, diabetes, I'll obstruction, morbid obesity, who is hard of hearing she is brought by paramedics with complaint of chest pain located in her left anterior chest upper region described as a pressure which began at approximately 2:00 this morning she states this lasts about 10 minutes at a time when it comes on it was initially associated with shortness of breath she had some nausea associated with it. She states the pain has been intermittent throughout the day until arrival. Patient has not had any vomiting no fevers. Patient had been given aspirin of 324 mg prior to arrival on arrival vitals are stable patient did not have any pain on arrival when I saw her however she does state that she had been having some intermittent pain during evaluation here in the emergency room Patient's EKG is remarkable for sinus rhythm with first-degree AV block 96 bpm normal axis no acute ST or T wave changes are noted chest x-ray is remarkable for normal heart and lungs no acute findings CBC white count 6.8 hemoglobin 12.8 hematocrit 38 platelets 238 patient's chemistry is essentially normal with the exception of a glucose of 149 patient's troponin is less than 0.012 unfortunately patient had an elevated d-dimer of 781 I've discussed the patient's case with Dr. Chairez. She would like us to go ahead and get a CT of the patient's chest to rule out pulmonary embolism. Will plan on placing the patient on telemetry observation obtain serial troponins. Will plan on covering patient's sugars with sliding scale. - Departure Time of Disposition: 14:36 Departure Disposition: Observation Clinical Impression: Shortness of breath Chest pain Qualifiers: Chest pain type: unspecified Qualified Code(s): R07.9 - Chest pain, unspecified Condition: Fair Critical Care Time: No Referrals: MARKY CHAIREZ [Primary Care Provider] -
[2018-03-29 13:10] LABS: ALBUMIN 4.2 g/dL (3.5-5.0); ANION GAP 12.4 MEQ/L (5-15); BILIRUBIN,TOTAL 0.4 mg/dL (0.2-1.3); Calcium 9.1 mg/dL (8.4-10.2); NT PRO BNP 76.7 pg/mL (0-1800); Total Protein 7.5 g/dL (6.3-8.2)
[2018-03-29] MEDS ORDERED: HOLD METFORMIN PRODUCTS FOR 48 HOURS MC SCH (14:15)
--- NOTE | 2018-03-29 14:38 | XRAY ---
Indication: Short of breath. Chest pressure. Elevated d-dimer. Multiple contiguous axial images obtained through the chest using 100 cc Isovue 370 contrast and PE protocol. Comparison: February 25, 2018. There is suboptimal opacification of the pulmonary arteries limiting evaluation of the more distal lobar and segmental branches. No central pulmonary embolus. Heart is not enlarged. Aorta is normal in course and caliber again with minimal calcifications. Stable small mediastinal and right hilar calcified nodes. No pathologic mediastinal/hilar lymphadenopathy. Examination of the lung parenchyma again demonstrates minimal bibasilar fibrosis/scarring and right posterior lateral gutter bleb. No suspicious pulmonary mass, infiltrate, or effusion. Bony thorax intact again with mild degenerative changes throughout the spine and T5 Schmorl node. Limited upper abdomen again demonstrates fatty liver. Impression: 1. Pulmonary embolus evaluation limited by suboptimal contrast opacification. No large central pulmonary embolus. 2. Stable bibasilar fibrosis/scarring and evidence for old granulomatous disease. 3. No new or acute cardiopulmonary abnormalities. 4. Stable fatty liver. CT DI 28.14
[2018-03-29] MEDS ORDERED: NovoLOG Insulin SQ PRN (15:13)
[2018-03-29] MEDS ORDERED: NORCO 5/325 MG PO PRN (16:01)
[2018-03-29] MEDS ORDERED: ATARAX 25 MG PO PRN (16:15)
[2018-03-29] MEDS: NEURONTIN 300 MG PO SCH (17:26)
--- NOTE | 2018-03-29 18:29 | XRAY ---
Indication: Elevated d-dimer. Two-dimensional sonogram and color Doppler imaging of the major venous vessels of the left and right leg was performed. Comparison: Left leg venous ultrasound March 30, 2016. No thrombus seen in the examined deep venous vessels of the left and right leg including greater saphenous veins. Veins demonstrate normal compressibility. Venous waveforms are normal with and without augmentation. Impression: Left and right legs negative for DVT. Comment: Preliminary report was given.
[2018-03-29] MEDS ORDERED: Ambien 5 MG Tablet PO SCH (22:00)
[2018-03-30] MEDS: NEURONTIN 300 MG PO SCH ×2 (00:07→09:00)
[2018-03-30 06:00] LABS: Hematocrit 36.8 % (35-47); Hemoglobin 12.1 gm/dl (12.0-16.0); Mean Cell Volume 99.7 fl (78-100); Mean Corpuscular Hgb Concent. 32.9 g/dl (32-36); Mean Platelet Volume 12.6 fl (6-9.5); Platelet Count 178 K/mm3 (150-450); Red Blood Count 3.69 M/mm3 (4.1-5.4); Red Cell Distribution Width 14.6 % (11.5-14.0); White Blood Count 6.3 K/mm3 (4.0-10.5)
[2018-03-30 06:09] LABS: ALBUMIN 3.8 g/dL (3.5-5.0); ANION GAP 11.7 MEQ/L (5-15); BILIRUBIN,TOTAL 0.4 mg/dL (0.2-1.3); Creatinine 1 1.03 mg/dL (0.52-1.04); Potassium 4.3 mmol/L (3.5-5.1); Total Protein 7.1 g/dL (6.3-8.2)
[2018-03-30 06:20] LABS: Mean Corpuscular Hemoglobin 32.7 pg (26-32)
[2018-03-30 07:25] LABS: BAND 1 % (0.0-2.0); Eosinophil 1 % (0.00-3.0); Lymphocytes 19 % (24-44); Monocyte 6 % (0.0-12.0); Neutrophils 73 % (36.0-66.0); Platelet Estimate NORMAL (NORMAL); Total Cells Counted 100
[2018-03-30 07:31] VITALS: BP 140/64; PULSE 85; O2SAT 94
--- NOTE | 2018-03-30 08:54 | PCM.SSS ---
History of Present Illness - Chief Complaint Chief Complaint: CHEST PAIN History of Present Illness: is a 77 year old female pt of mine from [facility] who was admitted yesterday with SOB. She had an elevated D-dimer but CTA of the chest, though suboptimal, appeared negative for PE. She had venous doppler studies of the bilat lower extremities which were neg for DVT. Her troponins have been negative x 5. This morning she states she was just anxious yesterday. It was 1 mo since her and 2 mo since her daughter . she is feeling good this morning , breathing is fine. Would like to go home. She will be discharged to home, with her daughter staying, and will f/u with me in 1 week. - Review of Systems Respiratory: Cough (some recently), Short Of Breath Abdominal/Gastrointestinal: Diarrhea (chronic; ostomy (no changes)) Skin: Other (irritation around the ostomy; chronic) Psychological: Anxiety, Depression, No Suicidal Ideations Medications & Allergies Home Medications: Home Medication List Benazepril HCl 20 mg PO DAILY 07/10/17 [History Confirmed 03/29/18] Hydrocodone/Acetaminophen [Hydrocodone-Acetamin 5-325 mg] 1 tab PO Q4-6HPRN PRN 07/10/17 [History Confirmed 03/29/18] Metformin HCl 250 mg PO BID 07/10/17 [History Confirmed 03/29/18] Omeprazole 20 mg PO DAILY 07/10/17 [History Confirmed 03/29/18] Pregabalin [Lyrica 75 mg Cap] 75 mg PO BID 07/10/17 [History Confirmed ] Zolpidem Tartrate [Ambien] 5 mg PO HS 07/22/17 [History Confirmed 03/29/18] Gabapentin 300 mg PO TID 07/24/17 [History Confirmed 03/29/18] Amlodipine Besylate 5 mg [Norvasc 5 mg] 5 mg PO QAM #30 tablet 07/29/17 [ Rx Confirmed 03/29/18] Hydroxyzine HCl 25 mg [Atarax 25 mg] 25 mg PO TID PRN #10 tablet 09/05/17 [Rx Confirmed 03/29/18] Allergies/Adverse Reactions: Allergies Allergy/AdvReac Type Severity Reaction Status Date / Time morphine AdvReac Verified 03/29/18 15:26 promethazine HCl AdvReac Verified 07/10/17 15:25 [From Phenergan] - Past Medical History Past Medical History: Yes Neurological History: No Pertinent History ENT History: Other Cardiac History: Angina, High Cholesterol, Hypertension Respiratory History: No Pertinent History Endocrine Medical History: Diabetes Type II Musculoskelatal History: No Pertinent History, Other GI Medical History: Other History: No Pertinent History Pyscho-Social History: No Pertinent History Reproductive Disorders: No Pertinent History Comment: NEUROPOTHY, bowel obstruction, pt poor historian, [facility] - Female History Are you now?: No - Past Surgical History Past Surgical History: Yes Neuro Surgical History: No Pertinent History Cardiac History: No Pertinent History Respiratory Surgery: No Pertinent History GI Surgical History: Appendectomy, Cholecystectomy, Colon Resection Genitourinary Surgical Hx: No Pertinent History Musculskeletal Surgical Hx: No Pertinent History Female Surgical History: Hysterectomy Other Surgical History: eye surgery. OSTOMY PLACED DUE TO BOWEL OBSTRUCTION, pt poor historian - Social History Smoking Status: Never smoker Exposure to second hand smoke: Yes (BF smokes) Alcohol: None Drug Use: none - Physical Exam Vital Signs: Vital Signs - 24 hr Temp Pulse Resp BP Pulse Ox 03/30/18 07:30 98.3 F 85 18 140/64 94 L 03/30/18 04:14 98.2 F 92 H 22 139/61 96 03/29/18 23:45 98.5 F 93 H 18 140/73 97 03/29/18 20:07 98.6 F 99 H 20 155/67 96 03/29/18 15:28 98.2 F 87 20 115/61 95 03/29/18 14:56 87 20 115/61 95 03/29/18 14:38 88 18 130/56 96 03/29/18 14:37 96 03/29/18 12:18 96 03/29/18 12:00 98.2 F 98 H 22 121/96 97 General Appearance: no apparent distress, alert Neurologic Exam: oriented x 3, cooperative, other (very [place] as usual) Eye Exam: eyes nml inspection Ears, Nose, Throat Exam: moist mucous membranes Neck Exam: normal inspection, non-tender, No lymphadenopathy Respiratory Exam: normal breath sounds, lungs clear, No prolonged expirations, No crackles/rales, No rhonchi Cardiovascular Exam: regular rate/rhythm, normal heart sounds, No murmur Gastrointestinal/Abdomen Exam: soft, normal bowel sounds, other (leakage L lateral ostomy; brown stool), No tenderness, No distention, No mass, No guarding , No rebound Back Exam: normal inspection, No CVA tenderness, No rash Extremity Exam: swelling (tr pretibial edema bilat) Skin Exam: normal color, warm, dry, No rash Results - Labs Lab/Micro Results: Accuchecks Date 03/30/18 Date 03/29/18 Date 03/29/18 Time 05:00 Time 22:00 Time 16:30 Accucheck Value: 130 Accucheck Value: 147 Accucheck Value: 149 Lab Results-Last 24 Hours 03/29/18 03/29/18 03/29/18 Range/Units 12:18 12:18 12:18 WBC 6.8 (4.0-10.5) K/mm3 RBC 3.87 L (4.1-5.4) M/mm3 Hgb 12.8 (12.0-16.0) gm/dl Hct 38.0 (35-47) % MCV 98.2 (78-100) fl MCH 33.0 H (26-32) pg MCHC 33.7 (32-36) g/dl RDW 14.4 H (11.5-14.0) % Plt Count 238 (150-450) K/mm3 MPV 10.5 H (6-9.5) fl Gran % 78.3 H (36.0-66.0) % Eos # (Auto) 0.09 (0-0.5) Absolute Lymphs (auto) 1.02 (1.0-4.6) Absolute Monos (auto) 0.34 (0.0-1.3) Lymphocytes % 15.1 L (24.0-44.0) % Monocytes % 5.0 (0.0-12.0) % Eosinophils % 1.3 (0.00-5.0) % Basophils % 0.3 (0.0-0.4) % Absolute Granulocytes 5.28 (1.4-6.9) Segmented Neutrophils (36.0-66.0) % Band Neutrophils (0.0-2.0) % Lymphocytes (Manual) (24-44) % Monocytes (Manual) (0.0-12.0) % Eosinophils (Manual) (0.00-3.0) % Basophils # 0.02 (0-0.4) Platelet Estimate (NORMAL) RBC Morphology PT 13.1 H (9.95-12.35) SECONDS INR 1.13 (0.8-3.0) APTT (25.3-37.0) SECONDS D-Dimer 781 H* (215-500) ng/mL Sodium 141 (137-145) mmol/L Potassium 5.0 (3.5-5.1) mmol/L Chloride 106 (98-107) mmol/L Carbon Dioxide 27 (22-30) mmol/L Anion Gap 12.4 (5-15) MEQ/L BUN 17 (7-17) mg/dL Creatinine 1.00 (0.52-1.04) mg/dL Estimated GFR 57.1 ML/MIN Glucose 149 H (74-106) mg/dL Hemoglobin A1c (4.5-6.0) % Calcium 9.1 (8.4-10.2) mg/dL Total Bilirubin 0.40 (0.2-1.3) mg/dL AST 34 (14-36) U/L ALT 28 (0-35) U/L Alkaline Phosphatase 121 (38-126) U/L Troponin I (0.000-0.034) ng/mL NT-Pro-B Natriuret Pep 76.7 (0-1800) pg/mL Serum Total Protein 7.5 (6.3-8.2) g/dL Albumin 4.2 (3.5-5.0) g/dL 03/29/18 03/29/18 03/29/18 Range/Units 12:18 15:15 15:15 WBC (4.0-10.5) K/mm3 RBC (4.1-5.4) M/mm3 Hgb (12.0-16.0) gm/dl Hct (35-47) % MCV (78-100) fl MCH (26-32) pg MCHC (32-36) g/dl RDW (11.5-14.0) % Plt Count (150-450) K/mm3 MPV (6-9.5) fl Gran % (36.0-66.0) % Eos # (Auto) (0-0.5) Absolute Lymphs (auto) (1.0-4.6) Absolute Monos (auto) (0.0-1.3) Lymphocytes % (24.0-44.0) % Monocytes % (0.0-12.0) % Eosinophils % (0.00-5.0) % Basophils % (0.0-0.4) % Absolute Granulocytes (1.4-6.9) Segmented Neutrophils (36.0-66.0) % Band Neutrophils (0.0-2.0) % Lymphocytes (Manual) (24-44) % Monocytes (Manual) (0.0-12.0) % Eosinophils (Manual) (0.00-3.0) % Basophils # (0-0.4) Platelet Estimate (NORMAL) RBC Morphology PT (9.95-12.35) SECONDS INR (0.8-3.0) APTT (25.3-37.0) SECONDS D-Dimer (215-500) ng/mL Sodium (137-145) mmol/L Potassium (3.5-5.1) mmol/L Chloride (98-107) mmol/L Carbon Dioxide (22-30) mmol/L Anion Gap (5-15) MEQ/L BUN (7-17) mg/dL Creatinine (0.52-1.04) mg/dL Estimated GFR ML/MIN Glucose (74-106) mg/dL Hemoglobin A1c 5.87 (4.5-6.0) % Calcium (8.4-10.2) mg/dL Total Bilirubin (0.2-1.3) mg/dL AST (14-36) U/L ALT (0-35) U/L Alkaline Phosphatase (38-126) U/L Troponin I < 0.012 < 0.012 (0.000-0.034) ng/mL NT-Pro-B Natriuret Pep (0-1800) pg/mL Serum Total Protein (6.3-8.2) g/dL Albumin (3.5-5.0) g/dL 03/29/18 03/29/18 03/30/18 Range/Units 18:30 22:00 05:00 WBC (4.0-10.5) K/mm3 RBC (4.1-5.4) M/mm3 Hgb (12.0-16.0) gm/dl Hct (35-47) % MCV (78-100) fl MCH (26-32) pg MCHC (32-36) g/dl RDW (11.5-14.0) % Plt Count (150-450) K/mm3 MPV (6-9.5) fl Gran % (36.0-66.0) % Eos # (Auto) (0-0.5) Absolute Lymphs (auto) (1.0-4.6) Absolute Monos (auto) (0.0-1.3) Lymphocytes % (24.0-44.0) % Monocytes % (0.0-12.0) % Eosinophils % (0.00-5.0) % Basophils % (0.0-0.4) % Absolute Granulocytes (1.4-6.9) Segmented Neutrophils (36.0-66.0) % Band Neutrophils (0.0-2.0) % Lymphocytes (Manual) (24-44) % Monocytes (Manual) (0.0-12.0) % Eosinophils (Manual) (0.00-3.0) % Basophils # (0-0.4) Platelet Estimate (NORMAL) RBC Morphology PT (9.95-12.35) SECONDS INR (0.8-3.0) APTT (25.3-37.0) SECONDS D-Dimer (215-500) ng/mL Sodium (137-145) mmol/L Potassium (3.5-5.1) mmol/L Chloride (98-107) mmol/L Carbon Dioxide (22-30) mmol/L Anion Gap (5-15) MEQ/L BUN (7-17) mg/dL Creatinine (0.52-1.04) mg/dL Estimated GFR ML/MIN Glucose (74-106) mg/dL Hemoglobin A1c (4.5-6.0) % Calcium (8.4-10.2) mg/dL Total Bilirubin (0.2-1.3) mg/dL AST (14-36) U/L ALT (0-35) U/L Alkaline Phosphatase (38-126) U/L Troponin I < 0.012 < 0.012 < 0.012 (0.000-0.034) ng/mL NT-Pro-B Natriuret Pep (0-1800) pg/mL Serum Total Protein (6.3-8.2) g/dL Albumin (3.5-5.0) g/dL 03/30/18 03/30/18 Range/Units 05:15 05:15 WBC 6.3 (4.0-10.5) K/mm3 RBC 3.69 L (4.1-5.4) M/mm3 Hgb 12.1 (12.0-16.0) gm/dl Hct 36.8 (35-47) % MCV 99.7 (78-100) fl MCH 32.7 H (26-32) pg MCHC 32.9 (32-36) g/dl RDW 14.6 H (11.5-14.0) % Plt Count 178 (150-450) K/mm3 MPV 12.6 H (6-9.5) fl Gran % (36.0-66.0) % Eos # (Auto) (0-0.5) Absolute Lymphs (auto) (1.0-4.6) Absolute Monos (auto) (0.0-1.3) Lymphocytes % (24.0-44.0) % Monocytes % (0.0-12.0) % Eosinophils % (0.00-5.0) % Basophils % (0.0-0.4) % Absolute Granulocytes (1.4-6.9) Segmented Neutrophils 73 H (36.0-66.0) % Band Neutrophils 1 (0.0-2.0) % Lymphocytes (Manual) 19 L (24-44) % Monocytes (Manual) 6 (0.0-12.0) % Eosinophils (Manual) 1 (0.00-3.0) % Basophils # (0-0.4) Platelet Estimate NORMAL (NORMAL) RBC Morphology NORMAL PT (9.95-12.35) SECONDS INR (0.8-3.0) APTT (25.3-37.0) SECONDS D-Dimer (215-500) ng/mL Sodium 140 (137-145) mmol/L Potassium 4.3 (3.5-5.1) mmol/L Chloride 105 (98-107) mmol/L Carbon Dioxide 27 (22-30) mmol/L Anion Gap 11.7 (5-15) MEQ/L BUN 18 H (7-17) mg/dL Creatinine 1.03 (0.52-1.04) mg/dL Estimated GFR 55.2 ML/MIN Glucose 116 H (74-106) mg/dL Hemoglobin A1c (4.5-6.0) % Calcium 9.0 (8.4-10.2) mg/dL Total Bilirubin 0.40 (0.2-1.3) mg/dL AST 29 (14-36) U/L ALT 23 (0-35) U/L Alkaline Phosphatase 95 (38-126) U/L Troponin I (0.000-0.034) ng/mL NT-Pro-B Natriuret Pep (0-1800) pg/mL Serum Total Protein 7.1 (6.3-8.2) g/dL Albumin 3.8 (3.5-5.0) g/dL Accuchecks Date 03/30/18 Date 03/29/18 Date 03/29/18 Time 05:00 Time 22:00 Time 16:30 Accucheck Value: 130 Accucheck Value: 147 Accucheck Value: 149 - Radiology Impressions Radiology Exams & Impressions: Radiology Procedures Category Date Time Status CHEST 1 VIEW (PORTABLE) Stat Exams 03/29/18 12:05 Completed CHEST WITH CONTRAST [CT] Stat Exams 03/29/18 13:34 Completed VENOUS BILATERAL EXTREMITY [US] Stat Exams 03/29/18 17:16 Completed Assessment/Plan (1) Shortness of breath Current Visit: Yes Status: Acute Assessment & Plan: Resolved. Doing well. may be related to anxiety. Code(s): R06.02 - SHORTNESS OF BREATH (2) Diabetes mellitus Current Visit: No Status: Chronic Qualifiers: Diabetes mellitus type: type 2 Diabetes mellitus mcfp insulin use: without oysterman use Diabetes mellitus complication status: with kidney complications Diabetes mellitus complication detail: with chronic kidney disease Chronic kidney disease stage: stage 2 (mild) Qualified Code(s): E11.22 - Type 2 diabetes mellitus with diabetic chronic kidney disease; N18.2 - Chronic kidney disease, stage 2 (mild); N18.2 - Chronic kidney disease, stage 2 (mild) Assessment & Plan: f/u outpatient Code(s): E11.9 - TYPE 2 DIABETES MELLITUS WITHOUT COMPLICATIONS (3) HTN (hypertension) Current Visit: No Status: Chronic Qualifiers: Hypertension type: essential hypertension Qualified Code(s): I10 - Essential (primary) hypertension Assessment & Plan: stable Code(s): I10 - ESSENTIAL (PRIMARY) HYPERTENSION Hospital Summary - Hospital Course Hospital Course: Pt admitted with SOB, elevated d-dimer - ruled out for [place]> No PE on CTA chest ( although suboptimal) and neg venous dopplers for LE DVT bilat. She is feeling much better this morning -thinks she was just anxious yesterday. Denies suicidal ideation. Will be discharged to home. - Vitals & Intake/Output Vital Signs: Vital Signs Temperature 98.3 F 03/30/18 07:30 Pulse Rate 85 03/30/18 07:30 Respiratory Rate 18 03/30/18 07:30 Blood Pressure 140/64 03/30/18 07:30 O2 Sat by Pulse Oximetry 94 L 03/30/18 07:30 Intake & Output: Intake & Output 03/27/18 03/28/18 03/29/18 03/30/18 11:59 11:59 11:59 11:59 Intake Total 860 Output Total 901 Balance -41 Weight 117.8 kg - Lab Result Diagrams: 03/30/18 05:15 03/30/18 05:15 Lab Results-Last 24 Hrs: Accuchecks Date 03/30/18 Date 03/29/18 Date 03/29/18 Time 05:00 Time 22:00 Time 16:30 Accucheck Value: 130 Accucheck Value: 147 Accucheck Value: 149 Lab Results-Last 24 Hours 03/29/18 03/29/18 03/29/18 Range/Units 12:18 12:18 12:18 WBC 6.8 (4.0-10.5) K/mm3 RBC 3.87 L (4.1-5.4) M/mm3 Hgb 12.8 (12.0-16.0) gm/dl Hct 38.0 (35-47) % MCV 98.2 (78-100) fl MCH 33.0 H (26-32) pg MCHC 33.7 (32-36) g/dl RDW 14.4 H (11.5-14.0) % Plt Count 238 (150-450) K/mm3 MPV 10.5 H (6-9.5) fl Gran % 78.3 H (36.0-66.0) % Eos # (Auto) 0.09 (0-0.5) Absolute Lymphs (auto) 1.02 (1.0-4.6) Absolute Monos (auto) 0.34 (0.0-1.3) Lymphocytes % 15.1 L (24.0-44.0) % Monocytes % 5.0 (0.0-12.0) % Eosinophils % 1.3 (0.00-5.0) % Basophils % 0.3 (0.0-0.4) % Absolute Granulocytes 5.28 (1.4-6.9) Segmented Neutrophils (36.0-66.0) % Band Neutrophils (0.0-2.0) % Lymphocytes (Manual) (24-44) % Monocytes (Manual) (0.0-12.0) % Eosinophils (Manual) (0.00-3.0) % Basophils # 0.02 (0-0.4) Platelet Estimate (NORMAL) RBC Morphology PT 13.1 H (9.95-12.35) SECONDS INR 1.13 (0.8-3.0) APTT (25.3-37.0) SECONDS D-Dimer 781 H* (215-500) ng/mL Sodium 141 (137-145) mmol/L Potassium 5.0 (3.5-5.1) mmol/L Chloride 106 (98-107) mmol/L Carbon Dioxide 27 (22-30) mmol/L Anion Gap 12.4 (5-15) MEQ/L BUN 17 (7-17) mg/dL Creatinine 1.00 (0.52-1.04) mg/dL Estimated GFR 57.1 ML/MIN Glucose 149 H (74-106) mg/dL Hemoglobin A1c (4.5-6.0) % Calcium 9.1 (8.4-10.2) mg/dL Total Bilirubin 0.40 (0.2-1.3) mg/dL AST 34 (14-36) U/L ALT 28 (0-35) U/L Alkaline Phosphatase 121 (38-126) U/L Troponin I (0.000-0.034) ng/mL NT-Pro-B Natriuret Pep 76.7 (0-1800) pg/mL Serum Total Protein 7.5 (6.3-8.2) g/dL Albumin 4.2 (3.5-5.0) g/dL 03/29/18 03/29/18 03/29/18 Range/Units 12:18 15:15 15:15 WBC (4.0-10.5) K/mm3 RBC (4.1-5.4) M/mm3 Hgb (12.0-16.0) gm/dl Hct (35-47) % MCV (78-100) fl MCH (26-32) pg MCHC (32-36) g/dl RDW (11.5-14.0) % Plt Count (150-450) K/mm3 MPV (6-9.5) fl Gran % (36.0-66.0) % Eos # (Auto) (0-0.5) Absolute Lymphs (auto) (1.0-4.6) Absolute Monos (auto) (0.0-1.3) Lymphocytes % (24.0-44.0) % Monocytes % (0.0-12.0) % Eosinophils % (0.00-5.0) % Basophils % (0.0-0.4) % Absolute Granulocytes (1.4-6.9) Segmented Neutrophils (36.0-66.0) % Band Neutrophils (0.0-2.0) % Lymphocytes (Manual) (24-44) % Monocytes (Manual) (0.0-12.0) % Eosinophils (Manual) (0.00-3.0) % Basophils # (0-0.4) Platelet Estimate (NORMAL) RBC Morphology PT (9.95-12.35) SECONDS INR (0.8-3.0) APTT (25.3-37.0) SECONDS D-Dimer (215-500) ng/mL Sodium (137-145) mmol/L Potassium (3.5-5.1) mmol/L Chloride (98-107) mmol/L Carbon Dioxide (22-30) mmol/L Anion Gap (5-15) MEQ/L BUN (7-17) mg/dL Creatinine (0.52-1.04) mg/dL Estimated GFR ML/MIN Glucose (74-106) mg/dL Hemoglobin A1c 5.87 (4.5-6.0) % Calcium (8.4-10.2) mg/dL Total Bilirubin (0.2-1.3) mg/dL AST (14-36) U/L ALT (0-35) U/L Alkaline Phosphatase (38-126) U/L Troponin I < 0.012 < 0.012 (0.000-0.034) ng/mL NT-Pro-B Natriuret Pep (0-1800) pg/mL Serum Total Protein (6.3-8.2) g/dL Albumin (3.5-5.0) g/dL 03/29/18 03/29/18 03/30/18 Range/Units 18:30 22:00 05:00 WBC (4.0-10.5) K/mm3 RBC (4.1-5.4) M/mm3 Hgb (12.0-16.0) gm/dl Hct (35-47) % MCV (78-100) fl MCH (26-32) pg MCHC (32-36) g/dl RDW (11.5-14.0) % Plt Count (150-450) K/mm3 MPV (6-9.5) fl Gran % (36.0-66.0) % Eos # (Auto) (0-0.5) Absolute Lymphs (auto) (1.0-4.6) Absolute Monos (auto) (0.0-1.3) Lymphocytes % (24.0-44.0) % Monocytes % (0.0-12.0) % Eosinophils % (0.00-5.0) % Basophils % (0.0-0.4) % Absolute Granulocytes (1.4-6.9) Segmented Neutrophils (36.0-66.0) % Band Neutrophils (0.0-2.0) % Lymphocytes (Manual) (24-44) % Monocytes (Manual) (0.0-12.0) % Eosinophils (Manual) (0.00-3.0) % Basophils # (0-0.4) Platelet Estimate (NORMAL) RBC Morphology PT (9.95-12.35) SECONDS INR (0.8-3.0) APTT (25.3-37.0) SECONDS D-Dimer (215-500) ng/mL Sodium (137-145) mmol/L Potassium (3.5-5.1) mmol/L Chloride (98-107) mmol/L Carbon Dioxide (22-30) mmol/L Anion Gap (5-15) MEQ/L BUN (7-17) mg/dL Creatinine (0.52-1.04) mg/dL Estimated GFR ML/MIN Glucose (74-106) mg/dL Hemoglobin A1c (4.5-6.0) % Calcium (8.4-10.2) mg/dL Total Bilirubin (0.2-1.3) mg/dL AST (14-36) U/L ALT (0-35) U/L Alkaline Phosphatase (38-126) U/L Troponin I < 0.012 < 0.012 < 0.012 (0.000-0.034) ng/mL NT-Pro-B Natriuret Pep (0-1800) pg/mL Serum Total Protein (6.3-8.2) g/dL Albumin (3.5-5.0) g/dL 03/30/18 03/30/18 Range/Units 05:15 05:15 WBC 6.3 (4.0-10.5) K/mm3 RBC 3.69 L (4.1-5.4) M/mm3 Hgb 12.1 (12.0-16.0) gm/dl Hct 36.8 (35-47) % MCV 99.7 (78-100) fl MCH 32.7 H (26-32) pg MCHC 32.9 (32-36) g/dl RDW 14.6 H (11.5-14.0) % Plt Count 178 (150-450) K/mm3 MPV 12.6 H (6-9.5) fl Gran % (36.0-66.0) % Eos # (Auto) (0-0.5) Absolute Lymphs (auto) (1.0-4.6) Absolute Monos (auto) (0.0-1.3) Lymphocytes % (24.0-44.0) % Monocytes % (0.0-12.0) % Eosinophils % (0.00-5.0) % Basophils % (0.0-0.4) % Absolute Granulocytes (1.4-6.9) Segmented Neutrophils 73 H (36.0-66.0) % Band Neutrophils 1 (0.0-2.0) % Lymphocytes (Manual) 19 L (24-44) % Monocytes (Manual) 6 (0.0-12.0) % Eosinophils (Manual) 1 (0.00-3.0) % Basophils # (0-0.4) Platelet Estimate NORMAL (NORMAL) RBC Morphology NORMAL PT (9.95-12.35) SECONDS INR (0.8-3.0) APTT (25.3-37.0) SECONDS D-Dimer (215-500) ng/mL Sodium 140 (137-145) mmol/L Potassium 4.3 (3.5-5.1) mmol/L Chloride 105 (98-107) mmol/L Carbon Dioxide 27 (22-30) mmol/L Anion Gap 11.7 (5-15) MEQ/L BUN 18 H (7-17) mg/dL Creatinine 1.03 (0.52-1.04) mg/dL Estimated GFR 55.2 ML/MIN Glucose 116 H (74-106) mg/dL Hemoglobin A1c (4.5-6.0) % Calcium 9.0 (8.4-10.2) mg/dL Total Bilirubin 0.40 (0.2-1.3) mg/dL AST 29 (14-36) U/L ALT 23 (0-35) U/L Alkaline Phosphatase 95 (38-126) U/L Troponin I (0.000-0.034) ng/mL NT-Pro-B Natriuret Pep (0-1800) pg/mL Serum Total Protein 7.1 (6.3-8.2) g/dL Albumin 3.8 (3.5-5.0) g/dL Micro Results-Entire Visit: Accuchecks Date 03/30/18 Date 03/29/18 Date 03/29/18 Time 05:00 Time 22:00 Time 16:30 Accucheck Value: 130 Accucheck Value: 147 Accucheck Value: 149 - Radiology Exams Ordered Rad Exams-Entire Visit: Radiology Procedures Category Date Time Status CHEST 1 VIEW (PORTABLE) Stat Exams 03/29/18 12:05 Completed CHEST WITH CONTRAST [CT] Stat Exams 03/29/18 13:34 Completed VENOUS BILATERAL EXTREMITY [US] Stat Exams 03/29/18 17:16 Completed - Discharge Disposition: Home, Self-Care Condition: Stable Prescriptions: Continue Pregabalin [Lyrica 75 mg Cap] 75 mg PO BID Omeprazole 20 mg PO DAILY Metformin HCl 250 mg PO BID Hydrocodone/Acetaminophen [Hydrocodone-Acetamin 5-325 mg] 1 tab PO Q4-6HPRN PRN PRN Reason: Pain Benazepril HCl 20 mg PO DAILY Zolpidem Tartrate [Ambien] 5 mg PO HS Gabapentin 300 mg PO TID Amlodipine Besylate 5 mg [Norvasc 5 mg] 5 mg PO QAM #30 tablet Hydroxyzine HCl 25 mg [Atarax 25 mg] 25 mg PO TID PRN #10 tablet Follow up with: MARKY MARTINEZ [Primary Care Provider] - 1 Week
[2018-03-30] MEDS ORDERED: NORVASC 5 MG PO SCH (10:00)
[2018-03-30] MEDS ORDERED: Protonix 40MG Tablet PO SCH (10:00)
[2018-03-30] MEDS ORDERED: Ecotrin 325 MG PO SCH (10:00)
[2018-03-30] MEDS ORDERED: Lotensin 10 MG PO SCH (10:00)
== END 2018-03-30 09:55 | disposition home or self-care (01) ==
LOC: ED 11:59 → MED SURG 15:04
PROVIDERS: ADMIT Family Medicine; ATTEND Family Medicine
DX: R06.02 Shortness of breath (principal); E11.22 Type 2 diabetes mellitus with diabetic chronic kidney disease; I12.9 Hypertensive chronic kidney disease with stage 1 through stage 4 chronic kidney disease, or unspecified chronic kidney disease; N18.2 Chronic kidney disease, stage 2 (mild); F41.9 Anxiety disorder, unspecified; E78.5 Hyperlipidemia, unspecified; Z90.49 Acquired absence of other specified parts of digestive tract; Z93.3 Colostomy status; Z79.899 Other long term (current) drug therapy
CPT/HCPCS: 36000; 36415; 71045; 71260; 80053; 82962; 83036; 83880; 84484; 85025; 85379; 85610; 85730; 90662; 93005; 93041; 93268; 93970; 99285; G0008; A9270-GY; G0378

== ENCOUNTER 2018-09-25 11:08 | Emergency (ER) | payer MEDICARE ==
[2018-09-25] MEDS ORDERED: Sodium Chloride 0.9% 1000 ML 1,000 ML IV STA (11:30)
[2018-09-25 11:48] VITALS: PULSE 109; O2SAT 94
[2018-09-25 11:54] LABS: Hematocrit 36.5 % (35-47); Mean Cell Volume 96.1 fl (78-100); Mean Corpuscular Hgb Concent. 32.9 g/dl (32-36); Mean Platelet Volume 10.7 fl (6-9.5); Platelet Count 254 K/mm3 (150-450); White Blood Count 5.8 K/mm3 (4.0-10.5)
[2018-09-25 11:59] LABS: ALBUMIN 3.8 g/dL (3.5-5.0); ANION GAP 12.1 MEQ/L (5-15); BILIRUBIN,TOTAL 0.5 mg/dL (0.2-1.3); Calcium 8.6 mg/dL (8.4-10.2); Creatinine 1 1.1 mg/dL (0.52-1.04); Mean Corpuscular Hemoglobin 31.5 pg (26-32); Potassium 4.1 mmol/L (3.5-5.1); Total Protein 7.9 g/dL (6.3-8.2)
--- NOTE | 2018-09-25 12:03 | ERPHSYRPT ---
- History of Present Illness Time Seen by Provider: 09/25/18 12:01 Source: patient, family Exam Limitations: no limitations Patient Subjective Stated Complaint: has colostomy and has had diarrhea since last night. family states stool has been green. Triage Nursing Assessment: to room per w/c. skin w/d, color normal, resp easy. assisted patient to bed, somewhat weak. abd large, soft, tender. normal bowel sounds heard. small amt yellow-green stool noted in colostomy bag. Physician History: has had diarrhea since last night. family states stool has been green. Timing/Duration: yesterday Severity: moderate Associated Symptoms: loss of appetite, weakness Allergies/Adverse Reactions: morphine Adverse Reaction (Verified 09/25/18 11:22) promethazine HCl [From Phenergan] Adverse Reaction (Verified 09/25/18 11:22) Home Medications: Benazepril HCl 20 mg PO DAILY 07/10/17 [History] Omeprazole 20 mg PO DAILY 07/10/17 [History] Buspirone HCl 7.5 mg PO BID 09/25/18 [History] Oxycodone/APAP 5 mg/325 mg [Percocet Tablet 5/325Mg] 5 mg PO TID 09/25/18 [ History] Pramipexole Di-HCl [Pramipexole Dihydrochloride] 0.125 mg PO TID 09/25/18 [ History] Hx Tetanus, Diphtheria Vaccination/Date Given: Yes Hx Influenza Vaccination/Date Given: Yes Hx Pneumococcal Vaccination/Date Given: Yes - Review of Systems Constitutional: No Fever, No Chills Eyes: No Symptoms Ears, Nose, & Throat: No Symptoms Respiratory: No Cough, No Dyspnea Cardiac: No Chest Pain, No Edema, No Syncope Abdominal/Gastrointestinal: Diarrhea, No Abdominal Pain, No Nausea, No Vomiting Genitourinary Symptoms: No Dysuria Musculoskeletal: No Back Pain, No Neck Pain Skin: No Rash Neurological: No Dizziness, No Focal Weakness, No Sensory Changes Psychological: No Symptoms Endocrine: No Symptoms All Other Systems: Reviewed and Negative - Past Medical History Pertinent Past Medical History: Yes Neurological History: No Pertinent History ENT History: Other Cardiac History: Angina, High Cholesterol, Hypertension Respiratory History: No Pertinent History Endocrine Medical History: Diabetes Type II Musculoskeletal History: No Pertinent History, Other GI Medical History: Other History: No Pertinent History Psycho-Social History: No Pertinent History Female Reproductive Disorders: No Pertinent History Other Medical History: NEUROPOTHY, bowel obstruction, pt poor historian, [facility] - Past Surgical History Past Surgical History: Yes Neuro Surgical History: No Pertinent History Cardiac: No Pertinent History Respiratory: No Pertinent History Gastrointestinal: Appendectomy, Cholecystectomy, Colon Resection Genitourinary: No Pertinent History Musculoskeletal: No Pertinent History Female Surgical History: Hysterectomy Other Surgical History: eye surgery. OSTOMY PLACED DUE TO BOWEL OBSTRUCTION, pt poor historian - Social History Smoking Status: Never smoker Exposure to second hand smoke: Yes (BF smokes) Drug Use: none Patient Lives Alone: No - Nursing Vital Signs Nursing Vital Signs: Initial Vital Signs Temperature 98.3 F 09/25/18 11:17 Pulse Rate 109 H 09/25/18 11:17 Respiratory Rate 18 09/25/18 11:17 Blood Pressure 150/77 09/25/18 11:17 O2 Sat by Pulse Oximetry 94 L 09/25/18 11:17 Pain Scale Pain Intensity 8 - Physical Exam General Appearance: no apparent distress, alert Eye Exam: PERRL/EOMI, eyes nml inspection Ears, Nose, Throat Exam: normal ENT inspection, TMs normal, pharynx normal, moist mucous membranes Neck Exam: normal inspection, non-tender, supple, full range of motion Respiratory Exam: normal breath sounds, lungs clear, No respiratory distress Cardiovascular Exam: regular rate/rhythm, normal heart sounds, normal peripheral pulses Gastrointestinal/Abdomen Exam: soft, normal bowel sounds, No tenderness, No mass Back Exam: normal inspection, normal range of motion, No CVA tenderness, No vertebral tenderness Extremity Exam: normal inspection, normal range of motion, pelvis stable Neurologic Exam: alert, oriented x 3, cooperative, normal mood/affect, nml cerebellar function, nml station & gait, sensation nml, No motor deficits Skin Exam: normal color, warm, dry, No rash Lymphatic Exam: No adenopathy SpO2: 94 - Course Nursing assessment & vital signs reviewed: Yes Ordered Tests: Active Orders 24 hr Category Date Time Status OBSTR/ACUTE ABDOMEN SERIES Stat Exams 09/25/18 12:11 Taken AMYLASE Stat Lab 09/25/18 11:43 Completed CBC W DIFF Stat Lab 09/25/18 11:43 Completed CMP Stat Lab 09/25/18 11:43 Completed CULTURE,URINE Stat Lab 09/25/18 13:00 Received LIPASE Stat Lab 09/25/18 11:43 Completed Lactic Acid Stat Lab 09/25/18 11:30 Completed Manual Differential NC Stat Lab 09/25/18 11:43 Completed UA W/RFX UR CULTURE Stat Lab 09/25/18 13:00 Completed Medication Summary Discontinued Medications Generic Name Dose Route Start Last Admin Trade Name Compa PRN Reason Stop Dose Admin Diphenoxylate HCl/Atropine 2 tablet 09/25/18 13:34 09/25/18 13:42 Lomotil PO 09/25/18 13:35 2 tablet STAT ONE Administration Sodium Chloride 1,000 mls @ 999 mls/hr 09/25/18 11:30 09/25/18 12:14 Sodium Chloride 0.9% 1000 Ml IV 09/25/18 12:30 999 mls/hr .Q1H1M STA Administration Sodium Chloride Confirm 09/25/18 12:13 Sodium Chloride 0.9% 1000 Ml Administered 09/25/18 12:14 Dose 1,000 mls @ ud .ROUTE .STK-MED ONE Lab/Rad Data: Laboratory Result Diagrams 09/25/18 11:43 09/25/18 11:43 Laboratory Results 09/25/18 09/25/18 09/25/18 Range/Units 13:00 11:43 11:43 WBC 5.8 (4.0-10.5) K/mm3 RBC 3.80 L (4.1-5.4) M/mm3 Hgb 12.0 (12.0-16.0) gm/dl Hct 36.5 (35-47) % MCV 96.1 (78-100) fl MCH 31.5 (26-32) pg MCHC 32.9 (32-36) g/dl RDW 15.0 H (11.5-14.0) % Plt Count 254 (150-450) K/mm3 MPV 10.7 H (6-9.5) fl Sodium 140 (137-145) mmol/L Potassium 4.1 (3.5-5.1) mmol/L Chloride 109 H (98-107) mmol/L Carbon Dioxide 23 (22-30) mmol/L Anion Gap 12.1 (5-15) MEQ/L BUN 18 H (7-17) mg/dL Creatinine 1.10 H (0.52-1.04) mg/dL Estimated GFR 51.2 ML/MIN Glucose 160 H (74-106) mg/dL Lactic Acid (0.4-2.0) Calcium 8.6 (8.4-10.2) mg/dL Total Bilirubin 0.50 (0.2-1.3) mg/dL AST 22 (14-36) U/L ALT 20 (0-35) U/L Alkaline Phosphatase 80 (38-126) U/L Serum Total Protein 7.9 (6.3-8.2) g/dL Albumin 3.8 (3.5-5.0) g/dL Amylase 52 (30-110) U/L Lipase 27 (23-300) U/L Urine Color YELLOW (YELLOW) Urine Appearance SLIGHTLY CLOUDY (CLEAR) Urine pH 5.0 (5-6) Ur Specific [place] 1.019 (1.005-1.025) Urine Protein 30 (Negative) Urine Ketones NEGATIVE (NEGATIVE) Urine Blood SMALL (0-5) Luis/ul Urine Nitrite NEGATIVE (NEGATIVE) Urine Bilirubin NEGATIVE (NEGATIVE) Urine Urobilinogen NEGATIVE (0-1) mg/dL Ur Leukocyte Esterase TRACE (NEGATIVE) Urine WBC (Auto) 26-50 (0-5) /HPF Urine RBC (Auto) 0-2 (0-2) /HPF U Epithel Cells (Auto) RARE (FEW) /HPF Urine Bacteria (Auto) NONE (NEGATIVE) /HPF Urine Mucus (Auto) SLIGHT (NEGATIVE) /HPF Urine Culture Reflexed YES (NO) Urine Glucose NEGATIVE (NEGATIVE) mg/dL 09/25/18 Range/Units 11:30 WBC (4.0-10.5) K/mm3 RBC (4.1-5.4) M/mm3 Hgb (12.0-16.0) gm/dl Hct (35-47) % MCV (78-100) fl MCH (26-32) pg MCHC (32-36) g/dl RDW (11.5-14.0) % Plt Count (150-450) K/mm3 MPV (6-9.5) fl Sodium (137-145) mmol/L Potassium (3.5-5.1) mmol/L Chloride (98-107) mmol/L Carbon Dioxide (22-30) mmol/L Anion Gap (5-15) MEQ/L BUN (7-17) mg/dL Creatinine (0.52-1.04) mg/dL Estimated GFR ML/MIN Glucose (74-106) mg/dL Lactic Acid 1.3 (0.4-2.0) Calcium (8.4-10.2) mg/dL Total Bilirubin (0.2-1.3) mg/dL AST (14-36) U/L ALT (0-35) U/L Alkaline Phosphatase (38-126) U/L Serum Total Protein (6.3-8.2) g/dL Albumin (3.5-5.0) g/dL Amylase (30-110) U/L Lipase (23-300) U/L Urine Color (YELLOW) Urine Appearance (CLEAR) Urine pH (5-6) Ur Specific [place] (1.005-1.025) Urine Protein (Negative) Urine Ketones (NEGATIVE) Urine Blood (0-5) Luis/ul Urine Nitrite (NEGATIVE) Urine Bilirubin (NEGATIVE) Urine Urobilinogen (0-1) mg/dL Ur Leukocyte Esterase (NEGATIVE) Urine WBC (Auto) (0-5) /HPF Urine RBC (Auto) (0-2) /HPF U Epithel Cells (Auto) (FEW) /HPF Urine Bacteria (Auto) (NEGATIVE) /HPF Urine Mucus (Auto) (NEGATIVE) /HPF Urine Culture Reflexed (NO) Urine Glucose (NEGATIVE) mg/dL - Progress Progress: improved Counseled pt/family regarding: lab results, diagnosis, need for follow-up, rad results - Departure Departure Disposition: Home Clinical Impression: Colostomy in place Diarrhea Qualifiers: Diarrhea type: unspecified type Qualified Code(s): R19.7 - Diarrhea, unspecified UTI (urinary tract infection) Qualifiers: Urinary tract infection type: site unspecified Hematuria presence: without hematuria Qualified Code(s): N39.0 - Urinary tract infection, site not specified Condition: Stable Critical Care Time: No Referrals: MARKY MARTINEZ [Primary Care Provider] - Instructions: Diarrhea in Adolescents and Adults, Colostomy Care, Urinary Tract Infections in Adults Prescriptions: Ciprofloxacin [Cipro 500 MG] 500 mg PO BIDAC #14 tablet Diphenoxylate HCl/Atropine [Lomotil Tablet] 1 each PO Q4HPRN PRN #30 tablet PRN Reason: Diarrhea
[2018-09-25] MEDS ORDERED: Sodium Chloride 0.9% 1000 ML 1,000 ML ONE (12:13)
[2018-09-25 13:16] VITALS: BP 138/79
[2018-09-25 13:25] LABS: Appearance SLIGHTLY CLOUDY (CLEAR); Bilirubin NEGATIVE (NEGATIVE); Blood SMALL Ery/ul (0-5); Epithelial Cells RARE /HPF (FEW); Glucose NEGATIVE (NEGATIVE); Ketones NEGATIVE (NEGATIVE); Leukocyte Esterase TRACE (NEGATIVE); Mucus SLIGHT /HPF (NEGATIVE); Nitrite NEGATIVE (NEGATIVE); Protein,Urine Dip 30 (Negative); RBC 0-2 /HPF (0-2); Specific Gravity 1.019 (1.005-1.025); Urobilinogen NEGATIVE mg/dL (0-1); WBC 26-50 /HPF (0-5)
[2018-09-25] MEDS ORDERED: Lomotil PO ONE (13:34)
[2018-09-25] MEDS ORDERED: Lomotil ONE (13:40)
[2018-09-25 13:58] LABS: BAND 1 % (0.0-2.0); Lymphocytes 13 % (24-44); Monocyte 4 % (0.0-12.0); Neutrophils 82 % (36.0-66.0); Platelet Estimate NORMAL (NORMAL); Total Cells Counted 100
--- NOTE | 2018-09-25 20:04 | XRAY ---
Indication: Abdomen pain and diarrhea. Comparison: Chest exam March 29, 2018. 2 views of the abdomen nonacute and nonobstructed with cholecystectomy clips and pelvic suture material. Solid organs unremarkable. Osseous structures intact with mild degenerative changes. Single PA chest again demonstrates normal heart and lungs. Bony thorax intact again with mild degenerative changes. Impression: Nonacute abdomen with chronic features. Stable nonacute PA chest.
== END 2018-09-25 14:05 | disposition home or self-care (01) ==
LOC: ED 11:08
DX: R19.7 Diarrhea, unspecified (principal); Z93.3 Colostomy status; N39.0 Urinary tract infection, site not specified
CPT/HCPCS: 36000; 36415; 74022; 80053; 81001; 82150; 83605; 83690; 85025; 87077; 87086; 87186; 96360; 99284; A9270-GY

== ENCOUNTER 2018-10-06 12:32 | Observation (INO) | payer MEDICARE ==
[2018-10-06] MEDS ORDERED: DUONEB 0.5-3 MG/3 ml Neb IH ONE ×2 (13:30→13:37)
[2018-10-06] MEDS ORDERED: Sodium Chloride 0.9% 1000 ML 1,000 ML IV SCH (13:30)
[2018-10-06] MEDS ORDERED: Sodium Chloride 0.9% 1000 ML 1,000 ML ONE (13:51)
--- NOTE | 2018-10-06 13:51 | XRAY ---
Indication: Cough. Chest pain. Comparison: September 25, 2018. Portable apical lordotic chest remains clear. Heart is not enlarged for AP portable technique. No new/acute findings. Impression: Stable nonacute chest.
[2018-10-06 14:00] LABS: VBG BASE EXCESS 2.6 (-2.0-2.0); VBG CARBOXYHEMOGLOBIN 1.5 % T HGB (0.0-6.9); VBG O2 SATURATION 98.8 (95-100); VBG POTASSIUM 4.1 (3.5-5.1)
[2018-10-06 14:01] LABS: Lactic Acid 1.1 (0.4-2.0); VBG pH 7.59 (7.32-7.42)
[2018-10-06 14:04] LABS: BASOPHIL % 0.5 % (0.0-0.4); Basophil (Absolute #) 0.03 (0-0.4); Eosinophil % 4.3 % (0.00-5.0); Eosinophil (Absolute #) 0.27 (0-0.5); Granulocytes % 67.8 % (36.0-66.0); Hematocrit 37.1 % (35-47); Hemoglobin 12.4 gm/dl (12.0-16.0); Lymphocyte (Absolute #) 1.25 (1.0-4.6); Lymphocytes % 19.7 % (24.0-44.0); Mean Cell Volume 94.6 fl (78-100); Mean Corpuscular Hemoglobin 31.6 pg (26-32); Mean Corpuscular Hgb Concent. 33.4 g/dl (32-36); Mean Platelet Volume 10.3 fl (6-9.5); Monocyte (Absolute #) 0.49 (0.0-1.3); Monocytes % 7.7 % (0.0-12.0); Platelet Count 264 K/mm3 (150-450); Red Blood Count 3.92 M/mm3 (4.1-5.4); White Blood Count 6.3 K/mm3 (4.0-10.5)
[2018-10-06] MEDS ORDERED: Zofran 4 MG/2 ML VIAL IV ONE (14:15)
[2018-10-06] MEDS ORDERED: SUBLIMAZE 100 MCG/2 ML IV ONE (14:15)
[2018-10-06 14:18] LABS: INR 1.2 (0.8-3.0)
--- NOTE | 2018-10-06 14:21 | ERPHSYRPT ---
- History of Present Illness Time Seen by Provider: 10/06/18 13:15 Source: patient Exam Limitations: clinical condition Patient Subjective Stated Complaint: "I have been coughing, sob, wheezing, for past week, and I also have a pain in the pit of my stomach. " Daughter states patients feet started swelling again yesterday. Pt has colostomy and emtpied today and has been working well. Triage Nursing Assessment: Aaox3, color somewhat flushed in face, lung sounds with biateral wheezes, increased sob when walking back to er room. States both feet with swelling again starting yesterday. emptied colostomy today and states has been working well. Physician History: PATIENT WITH A HISTORY OF HYPERTENSION COMPLAINS OF GENERALIZED WEAKNESS ASSOCIATED WITH LOW GRADE FEVER, CHILLS, PRODUCTIVE COUGH GREEN SPUTUM AND SHORTNESS OF BREATH. DENIES CHEST PAIN, DIAPHORESIS AND PALPITATIONS. PATIENT COMPLAINS OF CHRONIC BILATERAL LEG PAIN. Timing/Duration: day(s) Activities at Onset: none Severity of Dyspnea-Max: moderate Severity of Dyspnea-Current: moderate Possible Cause: occasional episodes Modifying Factors: Improves With: activity, coughing Associated Symptoms: fever, leg swelling International travel in last 2 weeks: No Allergies/Adverse Reactions: morphine Adverse Reaction (Verified 09/25/18 11:22) promethazine HCl [From Phenergan] Adverse Reaction (Verified 09/25/18 11:22) Home Medications: Benazepril HCl 20 mg PO DAILY 07/10/17 [History] Omeprazole 20 mg PO DAILY 07/10/17 [History] Buspirone HCl 7.5 mg PO BID 09/25/18 [History] Oxycodone/APAP 5 mg/325 mg [Percocet Tablet 5/325Mg] 5 mg PO TID 09/25/18 [ History] Pramipexole Di-HCl [Pramipexole Dihydrochloride] 0.125 mg PO TID 09/25/18 [ History] Hx Tetanus, Diphtheria Vaccination/Date Given: No Hx Influenza Vaccination/Date Given: Yes Hx Pneumococcal Vaccination/Date Given: Yes Immunizations Up to Date: No - Review of Systems Constitutional: Fever, Chills Eyes: No Symptoms Ears, Nose, & Throat: No Symptoms Respiratory: Cough, Dyspnea, Dyspnea on Exertion (KONG), Wheezing Cardiac: No Chest Pain, No Edema, No Syncope Abdominal/Gastrointestinal: No Abdominal Pain, No Nausea, No Vomiting, No Diarrhea Genitourinary Symptoms: No Dysuria Musculoskeletal: Other (CHRONIC LOWER LEG PAIN), No Back Pain, No Neck Pain Skin: No Symptoms Neurological: Other (GENERALIZED WEAKNESS) Psychological: No Symptoms Hematologic/Lymphatic: No Symptoms - Past Medical History Pertinent Past Medical History: Yes Neurological History: No Pertinent History ENT History: Other Cardiac History: Angina, High Cholesterol, Hypertension Respiratory History: No Pertinent History Endocrine Medical History: Diabetes Type II Musculoskeletal History: No Pertinent History, Other GI Medical History: Other History: No Pertinent History Psycho-Social History: No Pertinent History Female Reproductive Disorders: No Pertinent History Other Medical History: NEUROPOTHY, bowel obstruction, pt poor historian, [place] - Past Surgical History Past Surgical History: Yes Neuro Surgical History: No Pertinent History Cardiac: No Pertinent History Respiratory: No Pertinent History Gastrointestinal: Appendectomy, Cholecystectomy, Colon Resection Genitourinary: No Pertinent History Musculoskeletal: No Pertinent History Female Surgical History: Hysterectomy Other Surgical History: eye surgery. OSTOMY PLACED DUE TO BOWEL OBSTRUCTION, pt poor historian - Social History Smoking Status: Never smoker Exposure to second hand smoke: Yes (BF smokes) Drug Use: none Patient Lives Alone: No - Female History Hx Now: No - Nursing Vital Signs Nursing Vital Signs: Initial Vital Signs Temperature 98.9 F 10/06/18 13:00 Pulse Rate 105 H 10/06/18 13:00 Respiratory Rate 26 H 10/06/18 13:00 Blood Pressure 148/74 10/06/18 13:00 O2 Sat by Pulse Oximetry 96 10/06/18 13:00 Pain Scale Pain Intensity 0 - Physical Exam General Appearance: no apparent distress, alert Eye Exam: PERRL/EOMI Ears, Nose, Throat Exam: hearing grossly normal Neck Exam: normal inspection, supple Respiratory Exam: diminished breath sounds, wheezing Cardiovascular/Chest Exam: normal heart sounds, regular rate/rhythm Abdominal/Gastrointestinal Exam: soft, normal bowel sounds, other (NONTENDER), No tenderness, No distention, No mass Extremity Exam: non-tender, normal range of motion, normal inspection, no calf tenderness, no pedal edema Peripheral Pulses Exam: carotid (R): 2+, carotid (L): 2+, femoral (R): 2+, femoral (L): 2+, dorsalis-pedis (R): 2+, dorsalis-pedis (L): 2+ Neurologic Exam: alert, oriented x 3, cooperative, 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, sensation nml, No motor deficits Skin Exam: normal color, warm, No dry SpO2 Interpretation: normal SpO2: 97 - Course EKG Interpreted by Me: RATE, Sinus Rhythm, Sinus Tach (RATE 91), NORMAL AXIS - Radiology Exams Chest X-ray Interpretation: Discussed w/ radiologist, Negative, No Infiltrates - CT Exams Chest CT Interpretation: Discussed w/radiologist (NO LARGE CENTRAL PULMONARY EMBOLISM , STABLE SCATTERED FIBROSIS/SCARRING) Ordered Tests: Active Orders 24 hr Category Date Time Status Up With Assistance ROUTINE Activity 10/06/18 17:20 Active Refinery Operator Crude Unit STAT Care 10/06/18 13:26 Active Refinery Operator Crude Unit STAT Care 10/06/18 13:30 Active Code Status Order ROUTINE Care 10/06/18 17:20 Active EKG-ER Only STAT Care 10/06/18 13:25 Active IV Care Q6H Care 10/06/18 17:20 Active IV Insertion STAT Care 10/06/18 13:30 Active Oxygen-ED Only Nasal Cannula 2 lpm Care 10/06/18 13:[address] in Observation ROUTINE Care 10/06/18 17:20 Active Pulse Oximetry (ED) STAT Care 10/06/18 13:30 Active Mike Hose, Apply ROUTINE Care 10/06/18 17:20 Active Vital Signs Q4H Care 10/06/18 17:20 Active Weight,Daily 0600 Care 10/06/18 17:20 Active Regular Diet Diet 10/06/18 Breakfast Active CHEST 1 VIEW (PORTABLE) Stat Exams 10/06/18 13:25 Completed CHEST WITH CONTRAST [CT] Stat Exams 10/06/18 14:43 Completed VENOUS UNILAT/LIMITED EXTREMIT [US] Stat Exams 10/06/18 14:42 Completed BLOOD CULTURE Stat Lab 10/06/18 13:45 Received BMP Stat Lab 10/07/18 05:00 Ordered CBC W DIFF Stat Lab 10/06/18 13:55 Completed CMP Stat Lab 10/06/18 13:55 Completed CULTURE,URINE Stat Lab 10/06/18 14:26 Ordered D-DIMER QUANTITATION Stat Lab 10/06/18 13:55 Completed Lactic Acid Stat Lab 10/06/18 13:50 Completed MAGNESIUM Stat Lab 10/06/18 13:55 Completed MAGNESIUM Stat Lab 10/07/18 05:00 Ordered NT PRO BNP Stat Lab 10/06/18 13:55 Completed PROTIME WITH INR Stat Lab 10/06/18 13:55 Completed TROPONIN Q3H Lab 10/06/18 14:00 Completed TROPONIN Q3H Lab 10/06/18 17:15 Ordered TROPONIN Q3H Lab 10/06/18 20:15 Ordered TROPONIN Q3H Lab 10/06/18 23:15 Ordered TROPONIN Q3H Lab 10/07/18 02:15 Ordered Urinalysis with Microscopy Stat Lab 10/06/18 14:26 Completed VENOUS BLOOD GAS Stat Lab 10/06/18 13:50 Completed Oxygen Nasal Cannula 2 lpm RT 10/06/18 17:20 Active Peak Expiratory Flow Rate ONCE RT 10/06/18 13:41 Active Respiratory Nebulizer STAT RT 10/06/18 13:30 Completed Respiratory Therapy Assessment DAILY RT 10/06/18 13:41 Active Transfer Order Routine Transfer 10/06/18 Ordered Medication Summary Generic Name Dose Route Start Last Admin Trade Name Freq PRN Reason Stop Dose Admin Acetaminophen 650 mg 10/06/18 17:24 Tylenol 325 Mg PO 11/05/18 17:23 Q4H PRN PRN PAIN AND/OR FEVER Albuterol/Ipratropium 3 ml 10/06/18 19:00 Duoneb 0.5-3 Mg/3 Ml Neb IH 11/05/18 18:59 Q4HRT [facility] Amlodipine Besylate 5 mg 10/07/18 10:00 Norvasc 5 Mg PO 11/06/18 09:59 QAM [facility] Benazepril HCl 20 mg 10/07/18 10:00 Lotensin 10 Mg PO 11/06/18 09:59 QAM [facility] Hydroxyzine HCl 25 mg 10/06/18 17:26 Atarax 25 Mg PO 11/05/18 17:25 TID PRN PRN ANXIETY Sodium Chloride 1,000 mls @ 100 mls/hr 10/06/18 13:30 10/06/18 13:54 Sodium Chloride 0.9% 1000 Ml IV 11/05/18 13:29 100 mls/hr .Q10H ANAIS Administration Magnesium Sulfate/Dextrose 100 mls @ 100 mls/hr 10/06/18 14:45 10/06/18 16:33 Magnesium 1 Gm / 100 Ml D5w IV 10/06/18 16:44 100 mls/hr Q1H ANAIS Administration Levofloxacin/Dextrose 500 mg in 100 mls @ 100 mls/hr 10/07/18 10:00 Levofloxacin 500mg/100ml D5w IV 11/06/18 09:59 Q24H10 ANAIS Sodium Chloride 1,000 mls @ 50 mls/hr 10/06/18 17:30 Sodium Chloride 0.9% 1000 Ml IV 11/05/18 17:29 .Q20H ANAIS Magnesium Oxide 400 mg 10/06/18 22:00 Mag-Ox 400 PO 11/05/18 21:59 BID ANAIS Oxycodone/Acetaminophen 1 tab 10/06/18 22:00 Percocet Tablet 5/325mg PO 10/11/18 21:59 TID ANAIS Pantoprazole Sodium 40 mg 10/07/18 10:00 Protonix 40mg Tablet PO 11/06/18 09:59 DAILY ANAIS Discontinued Medications Generic Name Dose Route Start Last Admin Trade Name Freq PRN Reason Stop Dose Admin Albuterol/Ipratropium 3 ml 10/06/18 13:30 10/06/18 13:39 Duoneb 0.5-3 Mg/3 Ml Neb IH 10/06/18 13:31 3 ml STAT ONE Administration Albuterol/Ipratropium Confirm 10/06/18 13:37 Duoneb 0.5-3 Mg/3 Ml Neb Administered 10/06/18 13:38 Dose 3 ml IH .STK-MED ONE Fentanyl Citrate 50 mcg 10/06/18 14:15 10/06/18 14:37 Sublimaze 100 Mcg/2 Ml IV 10/06/18 14:16 50 mcg STAT ONE Administration Fentanyl Citrate Confirm 10/06/18 14:32 Sublimaze 100 Mcg/2 Ml Administered 10/06/18 14:33 Dose 100 mcg .ROUTE .STK-MED ONE Levofloxacin/Dextrose 500 mg in 100 mls @ 100 mls/hr 10/06/18 15:30 10/06/18 17:16 Levofloxacin 500mg/100ml D5w IV 10/06/18 16:29 100 ml/hr STAT STA 100 mls/hr Administration Levofloxacin/Dextrose Confirm 10/06/18 17:15 Levofloxacin 500mg/100ml D5w Administered 10/06/18 17:16 Dose 500 mg in 100 mls @ ud IV .STK-MED ONE Ondansetron HCl 4 mg 10/06/18 14:15 10/06/18 14:37 Zofran 4 Mg/2 Ml Vial IV 10/06/18 14:16 4 mg STAT ONE Administration Ondansetron HCl Confirm 10/06/18 14:30 Zofran 4 Mg/2 Ml Vial Administered 10/06/18 14:31 Dose 4 mg .ROUTE .STK-MED ONE Lab/Rad Data: Laboratory Result Diagrams 10/06/18 13:55 10/06/18 13:55 Laboratory Results 10/06/18 10/06/18 10/06/18 Range/Units 14:26 14:00 13:55 WBC (4.0-10.5) K/mm3 RBC (4.1-5.4) M/mm3 Hgb (12.0-16.0) gm/dl Hct (35-47) % MCV (78-100) fl MCH (26-32) pg MCHC (32-36) g/dl RDW (11.5-14.0) % Plt Count (150-450) K/mm3 MPV (6-9.5) fl Gran % (36.0-66.0) % Eos # (Auto) (0-0.5) Absolute Lymphs (auto) (1.0-4.6) Absolute Monos (auto) (0.0-1.3) Lymphocytes % (24.0-44.0) % Monocytes % (0.0-12.0) % Eosinophils % (0.00-5.0) % Basophils % (0.0-0.4) % Absolute Granulocytes (1.4-6.9) Basophils # (0-0.4) PT (9.95-12.35) SECONDS INR (0.8-3.0) D-Dimer (215-500) ng/mL pO2/FiO2 Ratio % VBG pH (7.32-7.42) VBG pCO2 at Pat Temp (42-55) mm/Hg VBG pO2 at Pat Temp (25-40) mm/Hg VBG HCO3 (22-28) meq/L VBG O2 Sat (Brooke) (95-100) VBG Base Excess (-2.0-2.0) VBG Hemoglobin VBG Carboxyhemoglobin (0.0-6.9) % T HGB POC Potassium (3.5-5.1) Sodium (137-145) mmol/L Potassium (3.5-5.1) mmol/L Chloride (98-107) mmol/L Carbon Dioxide (22-30) mmol/L Anion Gap (5-15) MEQ/L BUN (7-17) mg/dL Creatinine (0.52-1.04) mg/dL Estimated GFR ML/MIN Glucose (74-106) mg/dL Lactic Acid (0.4-2.0) Calcium (8.4-10.2) mg/dL Magnesium (1.6-2.3) mg/dL Total Bilirubin (0.2-1.3) mg/dL AST (14-36) U/L ALT (0-35) U/L Alkaline Phosphatase (38-126) U/L Troponin I < 0.012 (0.000-0.034) ng/mL NT-Pro-B Natriuret Pep (0-1800) pg/mL Serum Total Protein (6.3-8.2) g/dL Albumin (3.5-5.0) g/dL Urine Color YELLOW (YELLOW) Urine Appearance CLEAR (CLEAR) Urine pH 6.0 (5-6) Ur Specific Mayer 1.019 (1.005-1.025) Urine Protein NEGATIVE (Negative) Urine Ketones NEGATIVE (NEGATIVE) Urine Blood NEGATIVE (0-5) Luis/ul Urine Nitrite NEGATIVE (NEGATIVE) Urine Bilirubin NEGATIVE (NEGATIVE) Urine Urobilinogen NEGATIVE (0-1) mg/dL Ur Leukocyte Esterase NEGATIVE (NEGATIVE) Urine WBC (Auto) NONE (0-5) /HPF Urine RBC (Auto) NONE (0-2) /HPF U Epithel Cells (Auto) RARE (FEW) /HPF Urine Bacteria (Auto) NONE (NEGATIVE) /HPF Urine Mucus (Auto) SLIGHT (NEGATIVE) /HPF Urine Glucose NEGATIVE (NEGATIVE) mg/dL Influenza Type A Ag NEGATIVE (NEGATIVE) Influenza Type B Ag NEGATIVE (NEGATIVE) RSV (PCR) NEGATIVE (Negative) 10/06/18 10/06/18 10/06/18 Range/Units 13:55 13:55 13:55 WBC 6.3 (4.0-10.5) K/mm3 RBC 3.92 L (4.1-5.4) M/mm3 Hgb 12.4 (12.0-16.0) gm/dl Hct 37.1 (35-47) % MCV 94.6 (78-100) fl MCH 31.6 (26-32) pg MCHC 33.4 (32-36) g/dl RDW 15.0 H (11.5-14.0) % Plt Count 264 (150-450) K/mm3 MPV 10.3 H (6-9.5) fl Gran % 67.8 H (36.0-66.0) % Eos # (Auto) 0.27 (0-0.5) Absolute Lymphs (auto) 1.25 (1.0-4.6) Absolute Monos (auto) 0.49 (0.0-1.3) Lymphocytes % 19.7 L (24.0-44.0) % Monocytes % 7.7 (0.0-12.0) % Eosinophils % 4.3 (0.00-5.0) % Basophils % 0.5 (0.0-0.4) % Absolute Granulocytes 4.30 (1.4-6.9) Basophils # 0.03 (0-0.4) PT 14.0 H (9.95-12.35) SECONDS INR 1.20 (0.8-3.0) D-Dimer 1080 H* (215-500) ng/mL pO2/FiO2 Ratio % VBG pH (7.32-7.42) VBG pCO2 at Pat Temp (42-55) mm/Hg VBG pO2 at Pat Temp (25-40) mm/Hg VBG HCO3 (22-28) meq/L VBG O2 Sat (Brooke) (95-100) VBG Base Excess (-2.0-2.0) VBG Hemoglobin VBG Carboxyhemoglobin (0.0-6.9) % T HGB POC Potassium (3.5-5.1) Sodium 140 (137-145) mmol/L Potassium 4.2 (3.5-5.1) mmol/L Chloride 108 H (98-107) mmol/L Carbon Dioxide 22 (22-30) mmol/L Anion Gap 14.7 (5-15) MEQ/L BUN 13 (7-17) mg/dL Creatinine 0.96 (0.52-1.04) mg/dL Estimated GFR 59.9 ML/MIN Glucose 135 H (74-106) mg/dL Lactic Acid (0.4-2.0) Calcium 8.5 (8.4-10.2) mg/dL Magnesium 1.1 L (1.6-2.3) mg/dL Total Bilirubin 0.40 (0.2-1.3) mg/dL AST 34 (14-36) U/L ALT 29 (0-35) U/L Alkaline Phosphatase 104 (38-126) U/L Troponin I (0.000-0.034) ng/mL NT-Pro-B Natriuret Pep 371 (0-1800) pg/mL Serum Total Protein 7.9 (6.3-8.2) g/dL Albumin 3.8 (3.5-5.0) g/dL Urine Color (YELLOW) Urine Appearance (CLEAR) Urine pH (5-6) Ur Specific Mayer (1.005-1.025) Urine Protein (Negative) Urine Ketones (NEGATIVE) Urine Blood (0-5) Luis/ul Urine Nitrite (NEGATIVE) Urine Bilirubin (NEGATIVE) Urine Urobilinogen (0-1) mg/dL Ur Leukocyte Esterase (NEGATIVE) Urine WBC (Auto) (0-5) /HPF Urine RBC (Auto) (0-2) /HPF U Epithel Cells (Auto) (FEW) /HPF Urine Bacteria (Auto) (NEGATIVE) /HPF Urine Mucus (Auto) (NEGATIVE) /HPF Urine Glucose (NEGATIVE) mg/dL Influenza Type A Ag (NEGATIVE) Influenza Type B Ag (NEGATIVE) RSV (PCR) (Negative) 10/06/18 Range/Units 13:50 WBC (4.0-10.5) K/mm3 RBC (4.1-5.4) M/mm3 Hgb (12.0-16.0) gm/dl Hct (35-47) % MCV (78-100) fl MCH (26-32) pg MCHC (32-36) g/dl RDW (11.5-14.0) % Plt Count (150-450) K/mm3 MPV (6-9.5) fl Gran % (36.0-66.0) % Eos # (Auto) (0-0.5) Absolute Lymphs (auto) (1.0-4.6) Absolute Monos (auto) (0.0-1.3) Lymphocytes % (24.0-44.0) % Monocytes % (0.0-12.0) % Eosinophils % (0.00-5.0) % Basophils % (0.0-0.4) % Absolute Granulocytes (1.4-6.9) Basophils # (0-0.4) PT (9.95-12.35) SECONDS INR (0.8-3.0) D-Dimer (215-500) ng/mL pO2/FiO2 Ratio 21.0 % VBG pH 7.59 H* (7.32-7.42) VBG pCO2 at Pat Temp 24 L (42-55) mm/Hg VBG pO2 at Pat Temp 100 H (25-40) mm/Hg VBG HCO3 23.0 (22-28) meq/L VBG O2 Sat (Brooke) 98.8 (95-100) VBG Base Excess 2.6 H (-2.0-2.0) VBG Hemoglobin 13.0 VBG Carboxyhemoglobin 1.5 (0.0-6.9) % T HGB POC Potassium 4.1 (3.5-5.1) Sodium (137-145) mmol/L Potassium (3.5-5.1) mmol/L Chloride (98-107) mmol/L Carbon Dioxide (22-30) mmol/L Anion Gap (5-15) MEQ/L BUN (7-17) mg/dL Creatinine (0.52-1.04) mg/dL Estimated GFR ML/MIN Glucose (74-106) mg/dL Lactic Acid 1.1 (0.4-2.0) Calcium (8.4-10.2) mg/dL Magnesium (1.6-2.3) mg/dL Total Bilirubin (0.2-1.3) mg/dL AST (14-36) U/L ALT (0-35) U/L Alkaline Phosphatase (38-126) U/L Troponin I (0.000-0.034) ng/mL NT-Pro-B Natriuret Pep (0-1800) pg/mL Serum Total Protein (6.3-8.2) g/dL Albumin (3.5-5.0) g/dL Urine Color (YELLOW) Urine Appearance (CLEAR) Urine pH (5-6) Ur Specific Mayer (1.005-1.025) Urine Protein (Negative) Urine Ketones (NEGATIVE) Urine Blood (0-5) Luis/ul Urine Nitrite (NEGATIVE) Urine Bilirubin (NEGATIVE) Urine Urobilinogen (0-1) mg/dL Ur Leukocyte Esterase (NEGATIVE) Urine WBC (Auto) (0-5) /HPF Urine RBC (Auto) (0-2) /HPF U Epithel Cells (Auto) (FEW) /HPF Urine Bacteria (Auto) (NEGATIVE) /HPF Urine Mucus (Auto) (NEGATIVE) /HPF Urine Glucose (NEGATIVE) mg/dL Influenza Type A Ag (NEGATIVE) Influenza Type B Ag (NEGATIVE) RSV (PCR) (Negative) - Progress Progress Note: 10/06/18 16:08 ADMNISTERED DUO NEB AEROSOL, SOLUMEDROL 125MG, AFTER 2 SETS OF BLOOD CULTURES ADMINISTERED LEVAQUIN 500MG IVPB, ZOFRAN 4MG AND FENTANYL 50MCG IV, MAGNESIUM SULFATE 1GM IVPB FOR MAGNESIUM-1.1, DDIMER 1080, VENOUS DOPPLER RIGHT LOWER EXTREMITY NEGATIVE FOR DVT, UNABLE TO OBTAIN EXAM FOR LLE DUE TO PAIN AND REMAINDER OF STUDY CANCELLED, Blood Culture(s) Obtained: Yes Antibiotics given: Yes Discussed with Dr.: Chairez (DISCUSSED WITH DR CHAIREZ AT 1725 FOR OBSERVATION) - Departure Departure Disposition: Observation Clinical Impression: ACUTE DYSPNEA WITH BRONCHIOSPASM, Hypomagnesemia Condition: Stable Critical Care Time: No Referrals: MARKY CHAIREZ [Primary Care Provider] -
[2018-10-06] MEDS ORDERED: Zofran 4 MG/2 ML VIAL ONE (14:30)
[2018-10-06] MEDS ORDERED: SUBLIMAZE 100 MCG/2 ML ONE (14:32)
[2018-10-06 14:35] LABS: ALBUMIN 3.8 g/dL (3.5-5.0); ANION GAP 14.7 MEQ/L (5-15); BILIRUBIN,TOTAL 0.4 mg/dL (0.2-1.3); Calcium 8.5 mg/dL (8.4-10.2); Creatinine 1 0.96 mg/dL (0.52-1.04); Potassium 4.2 mmol/L (3.5-5.1); Total Protein 7.9 g/dL (6.3-8.2)
[2018-10-06 14:38] LABS: MAGNESIUM 1.1 mg/dL (1.6-2.3)
[2018-10-06 14:51] LABS: INFLUENZA A NEGATIVE (NEGATIVE); INFLUENZA B NEGATIVE (NEGATIVE); RESPIRATORY SYNCTIAL VIRUS NEGATIVE (Negative)
[2018-10-06] MEDS ORDERED: Levofloxacin 500MG/100ML D5W 500 MG/100 ML BAG IV STA (15:30)
[2018-10-06 15:38] LABS: Appearance CLEAR (CLEAR); Bilirubin NEGATIVE (NEGATIVE); Blood NEGATIVE Ery/ul (0-5); Epithelial Cells RARE /HPF (FEW); Glucose NEGATIVE (NEGATIVE); Ketones NEGATIVE (NEGATIVE); Leukocyte Esterase NEGATIVE (NEGATIVE); Mucus SLIGHT /HPF (NEGATIVE); Nitrite NEGATIVE (NEGATIVE); Protein,Urine Dip NEGATIVE (Negative); Specific Gravity 1.019 (1.005-1.025); Urobilinogen NEGATIVE mg/dL (0-1)
[2018-10-06] MEDS: Magnesium 1 Gm / 100 Ml D5W*** 100 ML IV SCH ×2 (16:18→16:33)
--- NOTE | 2018-10-06 16:18 | XRAY ---
Indication: Right leg pain. Two-dimensional sonogram and color Doppler imaging of the major venous vessels of the right leg was performed. Comparison: March 29, 2018. Again no thrombus seen in the examined deep venous vessels of the right leg including greater saphenous vein. Veins demonstrate normal compressibility. Venous waveforms are normal with and without augmentation. Impression: Right leg again negative for DVT. Patient refused left leg venous sonogram.
--- NOTE | 2018-10-06 16:26 | XRAY ---
Indication: Dyspnea. Elevated d-dimer. Multiple contiguous axial images obtained through the chest using 100 cc Isovue 300 contrast and PE protocol. Comparison: March 29, 2018. Again there is suboptimal opacification of the pulmonary arteries limiting evaluation of the lobar and segmental branches. No central pulmonary embolus. Heart is not enlarged. Aorta is normal in course and caliber. Stable small mediastinal and right hilar calcified nodes. No pathologic mediastinal/hilar lymphadenopathy. Examination of the lung parenchyma again demonstrates minimal scattered fibrosis/scarring bilaterally. No pulmonary mass/nodule, infiltrate, or effusion. Bony thorax intact again with mild degenerative changes throughout the spine. Limited upper abdomen again demonstrates fatty liver and cholecystectomy clips. Impression: 1. Again pulmonary embolus evaluation limited by suboptimal contrast opacification. No large central pulmonary embolus. 2. Stable scattered fibrosis/scarring, fatty liver, and evidence for old granulomatous disease. 3. No new or acute cardiopulmonary abnormalities. CTDI 23.69
[2018-10-06] MEDS ORDERED: Levofloxacin 500MG/100ML D5W 500 MG/100 ML BAG IV ONE (17:15)
[2018-10-06] MEDS ORDERED: TYLENOL 325 MG PO PRN (17:24)
[2018-10-06] MEDS ORDERED: ENOXAPARIN SODIUM SQ ONE (17:35)
[2018-10-06] MEDS: ENOXAPARIN SODIUM SQ SCH (17:35)
[2018-10-06] MEDS: ATARAX 25 MG PO PRN (18:24)
[2018-10-06] MEDS: DUONEB 0.5-3 MG/3 ml Neb IH SCH (19:41)
[2018-10-06] MEDS ORDERED: PERCOCET TABLET 5/325MG PO SCH (22:00)
[2018-10-06] MEDS: BUSPAR 5 MG PO SCH (22:14)
[2018-10-06] MEDS: MAG-OX 400 PO SCH (22:16)
[2018-10-06] MEDS: Mirapex 0.5 MG Tablet PO SCH (22:16)
[2018-10-07] MEDS: DUONEB 0.5-3 MG/3 ml Neb IH SCH ×7 (01:13→23:45)
[2018-10-07 03:13] LABS: ANION GAP 12.5 MEQ/L (5-15); Calcium 8.1 mg/dL (8.4-10.2); Creatinine 1 0.96 mg/dL (0.52-1.04); MAGNESIUM 1.7 mg/dL (1.6-2.3); Potassium 3.9 mmol/L (3.5-5.1)
[2018-10-07] MEDS ORDERED: Sodium Chloride 0.9% 1000 ML 1,000 ML ONE (06:25)
[2018-10-07] MEDS: Sodium Chloride 0.9% 1000 ML 1,000 ML IV SCH (06:30)
[2018-10-07] MEDS ORDERED: DUONEB 0.5-3 MG/3 ml Neb IH ONE (06:50)
[2018-10-07] MEDS: ENOXAPARIN SODIUM SQ SCH (06:57)
[2018-10-07] MEDS ORDERED: Ativan 1 MG PO PRN (09:02)
[2018-10-07] MEDS ORDERED: SUBLIMAZE 100 MCG/2 ML IV ONE (09:07)
--- NOTE | 2018-10-07 09:15 | PCM.HP ---
History of Present Illness - Chief Complaint Chief Complaint: Hypomanesemia. Dyspnea. History of Present Illness: is a 77 year old female pt of mine from [facility] with HTN, anxiety, diabetes , peripheral neuropathy, obesity, hearing loss, dementia, and colostomy who came to ER c/o increased bilat LE pain x 2 weeks. She says it's "like needles" and has complained at home that sometimes she can't move her legs. She is a very very poor historian. She has denies SOB or CP. In the ER she had elevated d-dimer > 1000; CTA chest was neg for PE, but doppler was only tolerated in RLE d/t pain. She was given treatment dose of lovenox and admitted. She has not been sleeping well. - Review of Systems All Other Systems: Unable due to condition, Unable due to dementia Medications & Allergies Home Medications: Home Medication List Benazepril HCl 20 mg PO DAILY 07/10/17 [History Confirmed 10/06/18] Omeprazole 20 mg PO DAILY 07/10/17 [History Confirmed 10/06/18] Amlodipine Besylate 5 mg [Norvasc 5 mg] 5 mg PO QAM #30 tablet 07/29/17 [ Rx Confirmed 10/06/18] Hydroxyzine HCl 25 mg [Atarax 25 mg] 25 mg PO TID PRN #10 tablet 09/05/17 [Rx Confirmed 10/06/18] Buspirone HCl 7.5 mg PO BID 09/25/18 [History Confirmed 10/06/18] Oxycodone/APAP 5 mg/325 mg [Percocet Tablet 5/325Mg] 5 mg PO TID 09/25/18 [ History Confirmed 10/06/18] Pramipexole Di-HCl [Pramipexole Dihydrochloride] 0.125 mg PO BID 09/25/18 [ History Confirmed 10/06/18] Allergies/Adverse Reactions: Allergies Allergy/AdvReac Type Severity Reaction Status Date / Time morphine AdvReac Verified 09/25/18 11:22 promethazine HCl AdvReac Verified 09/25/18 11:22 [From Phenergan] - Past Medical History Past Medical History: Yes Neurological History: No Pertinent History ENT History: Other Cardiac History: Angina, High Cholesterol, Hypertension Respiratory History: COPD Endocrine Medical History: Diabetes Type II Musculoskelatal History: No Pertinent History, Other GI Medical History: Other History: No Pertinent History Pyscho-Social History: No Pertinent History Reproductive Disorders: No Pertinent History Comment: NEUROPOTHY, bowel obstruction, pt poor historian, [place]. COLON CA. colostomy - Female History Are you now?: No - Past Surgical History Past Surgical History: Yes Neuro Surgical History: No Pertinent History Cardiac History: No Pertinent History Respiratory Surgery: No Pertinent History GI Surgical History: Appendectomy, Cholecystectomy, Colon Resection Genitourinary Surgical Hx: No Pertinent History Musculskeletal Surgical Hx: No Pertinent History Female Surgical History: Hysterectomy Other Surgical History: eye surgery. OSTOMY PLACED DUE TO BOWEL OBSTRUCTION, pt poor historian - Social History Smoking Status: Never smoker Exposure to second hand smoke: Yes (BF smokes) Alcohol: None Drug Use: none - Physical Exam Vital Signs: Vital Signs - 24 hr Temp Pulse Resp BP Pulse Ox 10/07/18 08:00 98.4 F 88 18 137/64 98 10/07/18 07:17 88 18 98 10/07/18 03:59 16 10/07/18 03:52 98.3 F 85 16 128/60 97 10/07/18 02:58 84 18 94 L 10/07/18 00:00 98.0 F 86 16 142/65 96 10/06/18 23:53 18 10/06/18 20:00 20 10/06/18 19:45 98 F 95 H 20 128/90 97 10/06/18 19:41 86 18 97 10/06/18 18:14 98 F 95 H 20 128/90 97 10/06/18 17:41 97 10/06/18 16:57 95 H 20 98 10/06/18 16:21 82 20 96 10/06/18 15:30 82 20 128/90 96 10/06/18 13:58 97 H 24 135/90 96 10/06/18 13:41 87 24 96 10/06/18 13:00 98.9 F 105 H 26 H 148/74 96 Oxygen-Last 24 hours O2 Percentage 2 Liters = 28% O2 Percentage 2 Liters = 28% O2 Percentage 2 Liters = 28% O2 Percentage 2 Liters = 28% O2 Percentage 2 Liters = 28% Oxygen Flowrate (L/min)-RT 2 Oxygen Flowrate (L/min)-RT 2 General Appearance: no apparent distress, alert, other (very very [place]) Neurologic Exam: disoriented (thinks it is "the 7th" month. oriented to place.) Eye Exam: eyes nml inspection Respiratory Exam: normal breath sounds, lungs clear, wheezing, No crackles/rales , No rhonchi Cardiovascular Exam: regular rate/rhythm, normal heart sounds, No murmur Gastrointestinal/Abdomen Exam: soft, normal bowel sounds, No tenderness, No distention, No mass, No guarding, No rebound Extremity Exam: other (Legs grossly look normal - no erythema or rash. There is trace pitting edema bilat. they are quite ttp.) Skin Exam: normal color, warm, dry, No rash Results - Labs Lab/Micro Results: Accuchecks Date 10/06/18 Time 21:00 Accucheck Value: 148 Lab Results-Last 24 Hours 10/06/18 10/06/18 10/06/18 Range/Units 13:50 13:55 13:55 WBC 6.3 (4.0-10.5) K/mm3 RBC 3.92 L (4.1-5.4) M/mm3 Hgb 12.4 (12.0-16.0) gm/dl Hct 37.1 (35-47) % MCV 94.6 (78-100) fl MCH 31.6 (26-32) pg MCHC 33.4 (32-36) g/dl RDW 15.0 H (11.5-14.0) % Plt Count 264 (150-450) K/mm3 MPV 10.3 H (6-9.5) fl Gran % 67.8 H (36.0-66.0) % Eos # (Auto) 0.27 (0-0.5) Absolute Lymphs (auto) 1.25 (1.0-4.6) Absolute Monos (auto) 0.49 (0.0-1.3) Lymphocytes % 19.7 L (24.0-44.0) % Monocytes % 7.7 (0.0-12.0) % Eosinophils % 4.3 (0.00-5.0) % Basophils % 0.5 (0.0-0.4) % Absolute Granulocytes 4.30 (1.4-6.9) Basophils # 0.03 (0-0.4) PT (9.95-12.35) SECONDS INR (0.8-3.0) D-Dimer (215-500) ng/mL pO2/FiO2 Ratio 21.0 % VBG pH 7.59 H* (7.32-7.42) VBG pCO2 at Pat Temp 24 L (42-55) mm/Hg VBG pO2 at Pat Temp 100 H (25-40) mm/Hg VBG HCO3 23.0 (22-28) meq/L VBG O2 Sat (Brooke) 98.8 (95-100) VBG Base Excess 2.6 H (-2.0-2.0) VBG Hemoglobin 13.0 VBG Carboxyhemoglobin 1.5 (0.0-6.9) % T HGB POC Potassium 4.1 (3.5-5.1) Sodium 140 (137-145) mmol/L Potassium 4.2 (3.5-5.1) mmol/L Chloride 108 H (98-107) mmol/L Carbon Dioxide 22 (22-30) mmol/L Anion Gap 14.7 (5-15) MEQ/L BUN 13 (7-17) mg/dL Creatinine 0.96 (0.52-1.04) mg/dL Estimated GFR 59.9 ML/MIN Glucose 135 H (74-106) mg/dL Lactic Acid 1.1 (0.4-2.0) Calcium 8.5 (8.4-10.2) mg/dL Magnesium 1.1 L (1.6-2.3) mg/dL Total Bilirubin 0.40 (0.2-1.3) mg/dL AST 34 (14-36) U/L ALT 29 (0-35) U/L Alkaline Phosphatase 104 (38-126) U/L Troponin I (0.000-0.034) ng/mL NT-Pro-B Natriuret Pep 371 (0-1800) pg/mL Serum Total Protein 7.9 (6.3-8.2) g/dL Albumin 3.8 (3.5-5.0) g/dL Urine Color (YELLOW) Urine Appearance (CLEAR) Urine pH (5-6) Ur Specific Sunset (1.005-1.025) Urine Protein (Negative) Urine Ketones (NEGATIVE) Urine Blood (0-5) Luis/ul Urine Nitrite (NEGATIVE) Urine Bilirubin (NEGATIVE) Urine Urobilinogen (0-1) mg/dL Ur Leukocyte Esterase (NEGATIVE) Urine WBC (Auto) (0-5) /HPF Urine RBC (Auto) (0-2) /HPF U Epithel Cells (Auto) (FEW) /HPF Urine Bacteria (Auto) (NEGATIVE) /HPF Urine Mucus (Auto) (NEGATIVE) /HPF Urine Glucose (NEGATIVE) mg/dL Influenza Type A Ag (NEGATIVE) Influenza Type B Ag (NEGATIVE) RSV (PCR) (Negative) 10/06/18 10/06/18 10/06/18 Range/Units 13:55 13:55 14:00 WBC (4.0-10.5) K/mm3 RBC (4.1-5.4) M/mm3 Hgb (12.0-16.0) gm/dl Hct (35-47) % MCV (78-100) fl MCH (26-32) pg MCHC (32-36) g/dl RDW (11.5-14.0) % Plt Count (150-450) K/mm3 MPV (6-9.5) fl Gran % (36.0-66.0) % Eos # (Auto) (0-0.5) Absolute Lymphs (auto) (1.0-4.6) Absolute Monos (auto) (0.0-1.3) Lymphocytes % (24.0-44.0) % Monocytes % (0.0-12.0) % Eosinophils % (0.00-5.0) % Basophils % (0.0-0.4) % Absolute Granulocytes (1.4-6.9) Basophils # (0-0.4) PT 14.0 H (9.95-12.35) SECONDS INR 1.20 (0.8-3.0) D-Dimer 1080 H* (215-500) ng/mL pO2/FiO2 Ratio % VBG pH (7.32-7.42) VBG pCO2 at Pat Temp (42-55) mm/Hg VBG pO2 at Pat Temp (25-40) mm/Hg VBG HCO3 (22-28) meq/L VBG O2 Sat (Brooke) (95-100) VBG Base Excess (-2.0-2.0) VBG Hemoglobin VBG Carboxyhemoglobin (0.0-6.9) % T HGB POC Potassium (3.5-5.1) Sodium (137-145) mmol/L Potassium (3.5-5.1) mmol/L Chloride (98-107) mmol/L Carbon Dioxide (22-30) mmol/L Anion Gap (5-15) MEQ/L BUN (7-17) mg/dL Creatinine (0.52-1.04) mg/dL Estimated GFR ML/MIN Glucose (74-106) mg/dL Lactic Acid (0.4-2.0) Calcium (8.4-10.2) mg/dL Magnesium (1.6-2.3) mg/dL Total Bilirubin (0.2-1.3) mg/dL AST (14-36) U/L ALT (0-35) U/L Alkaline Phosphatase (38-126) U/L Troponin I < 0.012 (0.000-0.034) ng/mL NT-Pro-B Natriuret Pep (0-1800) pg/mL Serum Total Protein (6.3-8.2) g/dL Albumin (3.5-5.0) g/dL Urine Color (YELLOW) Urine Appearance (CLEAR) Urine pH (5-6) Ur Specific Sunset (1.005-1.025) Urine Protein (Negative) Urine Ketones (NEGATIVE) Urine Blood (0-5) Luis/ul Urine Nitrite (NEGATIVE) Urine Bilirubin (NEGATIVE) Urine Urobilinogen (0-1) mg/dL Ur Leukocyte Esterase (NEGATIVE) Urine WBC (Auto) (0-5) /HPF Urine RBC (Auto) (0-2) /HPF U Epithel Cells (Auto) (FEW) /HPF Urine Bacteria (Auto) (NEGATIVE) /HPF Urine Mucus (Auto) (NEGATIVE) /HPF Urine Glucose (NEGATIVE) mg/dL Influenza Type A Ag NEGATIVE (NEGATIVE) Influenza Type B Ag NEGATIVE (NEGATIVE) RSV (PCR) NEGATIVE (Negative) 10/06/18 10/06/18 10/06/18 Range/Units 14:26 17:30 20:44 WBC (4.0-10.5) K/mm3 RBC (4.1-5.4) M/mm3 Hgb (12.0-16.0) gm/dl Hct (35-47) % MCV (78-100) fl MCH (26-32) pg MCHC (32-36) g/dl RDW (11.5-14.0) % Plt Count (150-450) K/mm3 MPV (6-9.5) fl Gran % (36.0-66.0) % Eos # (Auto) (0-0.5) Absolute Lymphs (auto) (1.0-4.6) Absolute Monos (auto) (0.0-1.3) Lymphocytes % (24.0-44.0) % Monocytes % (0.0-12.0) % Eosinophils % (0.00-5.0) % Basophils % (0.0-0.4) % Absolute Granulocytes (1.4-6.9) Basophils # (0-0.4) PT (9.95-12.35) SECONDS INR (0.8-3.0) D-Dimer (215-500) ng/mL pO2/FiO2 Ratio % VBG pH (7.32-7.42) VBG pCO2 at Pat Temp (42-55) mm/Hg VBG pO2 at Pat Temp (25-40) mm/Hg VBG HCO3 (22-28) meq/L VBG O2 Sat (Brooke) (95-100) VBG Base Excess (-2.0-2.0) VBG Hemoglobin VBG Carboxyhemoglobin (0.0-6.9) % T HGB POC Potassium (3.5-5.1) Sodium (137-145) mmol/L Potassium (3.5-5.1) mmol/L Chloride (98-107) mmol/L Carbon Dioxide (22-30) mmol/L Anion Gap (5-15) MEQ/L BUN (7-17) mg/dL Creatinine (0.52-1.04) mg/dL Estimated GFR ML/MIN Glucose (74-106) mg/dL Lactic Acid (0.4-2.0) Calcium (8.4-10.2) mg/dL Magnesium (1.6-2.3) mg/dL Total Bilirubin (0.2-1.3) mg/dL AST (14-36) U/L ALT (0-35) U/L Alkaline Phosphatase (38-126) U/L Troponin I < 0.012 < 0.012 (0.000-0.034) ng/mL NT-Pro-B Natriuret Pep (0-1800) pg/mL Serum Total Protein (6.3-8.2) g/dL Albumin (3.5-5.0) g/dL Urine Color YELLOW (YELLOW) Urine Appearance CLEAR (CLEAR) Urine pH 6.0 (5-6) Ur Specific Sunset 1.019 (1.005-1.025) Urine Protein NEGATIVE (Negative) Urine Ketones NEGATIVE (NEGATIVE) Urine Blood NEGATIVE (0-5) Luis/ul Urine Nitrite NEGATIVE (NEGATIVE) Urine Bilirubin NEGATIVE (NEGATIVE) Urine Urobilinogen NEGATIVE (0-1) mg/dL Ur Leukocyte Esterase NEGATIVE (NEGATIVE) Urine WBC (Auto) NONE (0-5) /HPF Urine RBC (Auto) NONE (0-2) /HPF U Epithel Cells (Auto) RARE (FEW) /HPF Urine Bacteria (Auto) NONE (NEGATIVE) /HPF Urine Mucus (Auto) SLIGHT (NEGATIVE) /HPF Urine Glucose NEGATIVE (NEGATIVE) mg/dL Influenza Type A Ag (NEGATIVE) Influenza Type B Ag (NEGATIVE) RSV (PCR) (Negative) 10/07/18 10/07/18 Range/Units 02:50 02:50 WBC (4.0-10.5) K/mm3 RBC (4.1-5.4) M/mm3 Hgb (12.0-16.0) gm/dl Hct (35-47) % MCV (78-100) fl MCH (26-32) pg MCHC (32-36) g/dl RDW (11.5-14.0) % Plt Count (150-450) K/mm3 MPV (6-9.5) fl Gran % (36.0-66.0) % Eos # (Auto) (0-0.5) Absolute Lymphs (auto) (1.0-4.6) Absolute Monos (auto) (0.0-1.3) Lymphocytes % (24.0-44.0) % Monocytes % (0.0-12.0) % Eosinophils % (0.00-5.0) % Basophils % (0.0-0.4) % Absolute Granulocytes (1.4-6.9) Basophils # (0-0.4) PT (9.95-12.35) SECONDS INR (0.8-3.0) D-Dimer (215-500) ng/mL pO2/FiO2 Ratio % VBG pH (7.32-7.42) VBG pCO2 at Pat Temp (42-55) mm/Hg VBG pO2 at Pat Temp (25-40) mm/Hg VBG HCO3 (22-28) meq/L VBG O2 Sat (Brooke) (95-100) VBG Base Excess (-2.0-2.0) VBG Hemoglobin VBG Carboxyhemoglobin (0.0-6.9) % T HGB POC Potassium (3.5-5.1) Sodium 139 (137-145) mmol/L Potassium 3.9 (3.5-5.1) mmol/L Chloride 107 (98-107) mmol/L Carbon Dioxide 24 (22-30) mmol/L Anion Gap 12.5 (5-15) MEQ/L BUN 12 (7-17) mg/dL Creatinine 0.96 (0.52-1.04) mg/dL Estimated GFR 59.9 ML/MIN Glucose 113 H (74-106) mg/dL Lactic Acid (0.4-2.0) Calcium 8.1 L (8.4-10.2) mg/dL Magnesium 1.7 (1.6-2.3) mg/dL Total Bilirubin (0.2-1.3) mg/dL AST (14-36) U/L ALT (0-35) U/L Alkaline Phosphatase (38-126) U/L Troponin I < 0.012 (0.000-0.034) ng/mL NT-Pro-B Natriuret Pep (0-1800) pg/mL Serum Total Protein (6.3-8.2) g/dL Albumin (3.5-5.0) g/dL Urine Color (YELLOW) Urine Appearance (CLEAR) Urine pH (5-6) Ur Specific Sunset (1.005-1.025) Urine Protein (Negative) Urine Ketones (NEGATIVE) Urine Blood (0-5) Luis/ul Urine Nitrite (NEGATIVE) Urine Bilirubin (NEGATIVE) Urine Urobilinogen (0-1) mg/dL Ur Leukocyte Esterase (NEGATIVE) Urine WBC (Auto) (0-5) /HPF Urine RBC (Auto) (0-2) /HPF U Epithel Cells (Auto) (FEW) /HPF Urine Bacteria (Auto) (NEGATIVE) /HPF Urine Mucus (Auto) (NEGATIVE) /HPF Urine Glucose (NEGATIVE) mg/dL Influenza Type A Ag (NEGATIVE) Influenza Type B Ag (NEGATIVE) RSV (PCR) (Negative) Microbiology 10/06/18 15:35 Urine Culture - Preliminary Catherized <10K NORMAL SKIN PHU PROBABLE SKIN CONTAMINANT Accuchecks Date 10/06/18 Time 21:00 Accucheck Value: 148 - Radiology Impressions Radiology Exams & Impressions: Radiology Procedures Category Date Time Status CHEST 1 VIEW (PORTABLE) Stat Exams 10/06/18 13:25 Completed CHEST WITH CONTRAST [CT] Stat Exams 10/06/18 14:43 Completed LUMBAR COMPLETE (MIN 4 VIEWS) Routine Exams 10/07/18 Ordered MRI L-SPINE WITHOUT CONTRAST [MRI] Routine Exams 10/07/18 09:04 Ordered VENOUS UNILAT/LIMITED EXTREMIT [US] Stat Exams 10/06/18 14:42 Completed VENOUS UNILAT/LIMITED EXTREMIT [US] Urgent Exams 10/07/18 Ordered - Other Procedures and Tests Respiratory Therapy 10/06/18 13:41 Peak Expiratory Flow Rate ONCE Respiratory Therapy Assessment DAILY 10/06/18 17:20 Oxygen Nasal Cannula 2 lpm Assessment/Plan (1) Leg pain Current Visit: Yes Status: Acute Qualifiers: Laterality: bilateral Qualified Code(s): M79.604 - Pain in right leg; M79.605 - Pain in left leg Assessment & Plan: Unsure whether this is an exacerbation of her pre-existing diabetic peripheral neuropathy or a new issue; checking for DVT on the LLE (ruled out on R). Will check lumbar spine XR and MRI. Start neurontin. Increase percocet for now. fentanyl prn ultrasound. (2) Peripheral neuropathic pain Current Visit: Yes Status: Acute Code(s): M79.2 - NEURALGIA AND NEURITIS, UNSPECIFIED (3) Paresthesia Current Visit: Yes Status: Acute Code(s): R20.2 - PARESTHESIA OF SKIN (4) Elevated d-dimer Current Visit: Yes Status: Acute Code(s): R79.89 - OTHER SPECIFIED ABNORMAL FINDINGS OF BLOOD CHEMISTRY (5) Bronchitis Current Visit: No Status: Acute Assessment & Plan: wheezing; was not a smoker. CXR and CT neg. ER did start her on levaquin for possible lung infection. Will continue breathing tx. Code(s): J40 - BRONCHITIS, NOT SPECIFIED ACUTE OR CHRONIC (6) Insomnia Current Visit: Yes Status: Acute Qualifiers: Insomnia type: unspecified Qualified Code(s): G47.00 - Insomnia, unspecified Assessment & Plan: I think related to pain. Considered ativan but in our office notes she is allergic to xanax (not listed on hospital allergy list). Code(s): G47.00 - INSOMNIA, UNSPECIFIED
[2018-10-07] MEDS: OXYCODONE-ACETAMINOPHEN 10-325 PO PRN ×2 (09:42→21:38)
[2018-10-07] MEDS: Mirapex 0.5 MG Tablet PO SCH ×2 (09:43→21:40)
[2018-10-07] MEDS: NORVASC 5 MG PO SCH (09:44)
[2018-10-07] MEDS: Protonix 40MG Tablet PO SCH (09:44)
[2018-10-07] MEDS: NEURONTIN 300 MG PO SCH ×3 (09:44→21:54)
[2018-10-07] MEDS: Lotensin 10 MG PO SCH (09:44)
[2018-10-07] MEDS: MAG-OX 400 PO SCH ×2 (09:45→21:37)
[2018-10-07] MEDS: BUSPAR 5 MG PO SCH ×2 (09:45→21:38)
[2018-10-07] MEDS: Levaquin 250MG/50ML D5W 250 MG/50 ML BAG IV SCH (09:47)
[2018-10-07] MEDS ORDERED: Levofloxacin 500MG/100ML D5W 500 MG/100 ML BAG IV SCH (10:00)
--- NOTE | 2018-10-07 11:45 | XRAY ---
Indication: Leg paresthesia. Comparison: December 30, 2016. 5 views of the lumbar spine unchanged again demonstrating normal alignment with osteopenia, mild/moderate multilevel degenerative spondylosis greatest L5-S1 level, minimal vascular calcifications, pelvic suture material, and cholecystectomy clips. No new/acute findings.
--- NOTE | 2018-10-07 11:48 | XRAY ---
Indication: Leg pain. Elevated d-dimer. Two-dimensional sonogram and color Doppler imaging of the major venous vessels of the left leg was performed. Comparison: March 29, 2018. Again no thrombus seen in the examined deep venous vessels of the left leg including greater saphenous vein. Veins demonstrate normal compressibility. Venous waveforms are normal with and without augmentation. Impression: Left leg again negative for DVT.
[2018-10-07] MEDS: ATARAX 25 MG PO PRN (21:39)
[2018-10-08] MEDS: DUONEB 0.5-3 MG/3 ml Neb IH SCH ×7 (03:58→22:25)
[2018-10-08] MEDS: Sodium Chloride 0.9% 1000 ML 1,000 ML IV SCH ×2 (06:01→22:44)
[2018-10-08] MEDS: Protonix 40MG Tablet PO SCH (08:35)
[2018-10-08] MEDS: OXYCODONE-ACETAMINOPHEN 10-325 PO PRN ×3 (08:35→21:51)
[2018-10-08] MEDS: BUSPAR 5 MG PO SCH ×2 (10:15→21:41)
[2018-10-08] MEDS: ENOXAPARIN SODIUM SQ SCH (10:16)
[2018-10-08] MEDS: Lotensin 10 MG PO SCH (10:16)
[2018-10-08] MEDS: Levaquin 250MG/50ML D5W 250 MG/50 ML BAG IV SCH (10:16)
[2018-10-08] MEDS: DELTASONE 20 MG PO SCH (10:16)
[2018-10-08] MEDS: MAG-OX 400 PO SCH ×2 (10:17→21:42)
[2018-10-08] MEDS: Mirapex 0.5 MG Tablet PO SCH ×2 (10:17→21:39)
[2018-10-08] MEDS: NEURONTIN 300 MG PO SCH ×3 (10:19→21:42)
[2018-10-08] MEDS: NORVASC 5 MG PO SCH (10:19)
[2018-10-08] MEDS ORDERED: NovoLOG Insulin SQ PRN (14:44)
--- NOTE | 2018-10-08 14:45 | PCM.NOTE ---
Date and Time: 10/08/18 1440 Subjective Assessment: She reports some continued wheezing. She states her leg feels better. She does not wear oxygen at home and does not have any history of copd or asthma. - Review of Systems Constitutional: No Symptoms Eyes: No Symptoms Ears, Nose, & Throat: No Symptoms Respiratory: Cough, Short Of Breath, Wheezing Cardiac: No Symptoms Abdominal/Gastrointestinal: No Symptoms Genitourinary Symptoms: No Symptoms Musculoskeletal: Other (leg pain) Objective Exam General Appearance: no apparent distress, obese, other (daughter at bedside; pt very hard of hearing) Neurologic Exam: alert, cooperative, normal mood/affect Skin Exam: normal color, warm, dry Respiratory Exam: wheezing, No crackles/rales, No rhonchi Cardiovascular Exam: regular rate/rhythm, normal heart sounds, No murmur, No friction rub, No gallop Gastrointestinal/Abdomen Exam: soft, normal bowel sounds, No tenderness, No distention, No mass Extremity Exam: other (no c/c/e) OBJECTIVE DATA Vital Signs: Vital Signs - 24 hr Temp Pulse Resp BP Pulse Ox 10/08/18 11:14 97.8 F 70 20 140/68 97 10/08/18 10:40 83 18 89 L 10/08/18 07:27 88 18 97 10/08/18 07:07 98 F 74 20 122/68 96 10/08/18 03:58 82 18 95 10/08/18 03:43 98.1 F 69 19 138/65 10/08/18 03:41 98.8 F 83 20 119/70 10/08/18 00:00 20 10/07/18 23:54 98.8 F 83 18 119/70 97 10/07/18 23:46 94 H 17 95 10/07/18 20:00 97.3 F 90 19 121/58 97 10/07/18 19:47 95 H 18 96 10/07/18 16:12 88 18 96 10/07/18 16:00 98.5 F 99 H 18 117/57 95 Oxygen-Last 24 hours O2 Percentage 2 Liters = 28% O2 Percentage 2 Liters = 28% O2 Percentage 2 Liters = 28% O2 Percentage 2 Liters = 28% O2 Percentage 2 Liters = 28% Pain Assessment - Last Documented Pain Intensity 0 Pain Scale Used 0-10 Pain Scale Intake and Output: Intake & Output 10/06/18 10/07/18 10/08/18 10/09/18 06:59 06:59 06:59 06:59 Intake Total 574 2009 960 Output Total 722 328 3454 Balance 174 1509 -290 Weight 135 kg 120.2 kg Lab Results: Accuchecks Date 10/07/18 Time 21:00 Accucheck Value: 118 Accucheck Value: 145 Accucheck Value: 116 Radiology Exams: Radiology Procedures Category Date Time Status CHEST WITH CONTRAST [CT] Stat Exams 10/06/18 14:43 Completed LUMBAR COMPLETE (MIN 4 VIEWS) Routine Exams 10/07/18 11:27 Completed VENOUS UNILAT/LIMITED EXTREMIT [US] Stat Exams 10/06/18 14:42 Completed VENOUS UNILAT/LIMITED EXTREMIT [US] Urgent Exams 10/07/18 11:07 Completed Assessment/Plan (1) Leg pain Current Visit: Yes Status: Acute Qualifiers: Laterality: bilateral Qualified Code(s): M79.604 - Pain in right leg; M79.605 - Pain in left leg Assessment & Plan: Currently controlled on her home medication. (2) Peripheral neuropathic pain Current Visit: Yes Status: Acute Assessment & Plan: Continue gabapentin. Code(s): M79.2 - NEURALGIA AND NEURITIS, UNSPECIFIED (3) Bronchitis Current Visit: No Status: Acute Assessment & Plan: Continue levofloxacin and start steroids. Continue albuterol as needed and oxygen as needed. Code(s): J40 - BRONCHITIS, NOT SPECIFIED ACUTE OR CHRONIC (4) Hypoxia Current Visit: Yes Status: Acute Assessment & Plan: Will check overnight pulse oximetry. Code(s): R09.02 - HYPOXEMIA (5) Diabetes mellitus Current Visit: No Status: Chronic Qualifiers: Diabetes mellitus type: type 2 Diabetes mellitus residential insulin use: without termite treater helper use Diabetes mellitus complication status: with kidney complications Diabetes mellitus complication detail: with chronic kidney disease Chronic kidney disease stage: stage 2 (mild) Qualified Code(s): E11.22 - Type 2 diabetes mellitus with diabetic chronic kidney disease; N18.2 - Chronic kidney disease, stage 2 (mild); N18.2 - Chronic kidney disease, stage 2 (mild) Assessment & Plan: Blood glucoses may start running higher with addition of prednisone so will add low dose sliding scale if needed. Continue accu checks. Code(s): E11.9 - TYPE 2 DIABETES MELLITUS WITHOUT COMPLICATIONS
[2018-10-09] MEDS: OXYCODONE-ACETAMINOPHEN 10-325 PO PRN ×2 (02:24→08:19)
[2018-10-09] MEDS: DUONEB 0.5-3 MG/3 ml Neb IH SCH ×3 (03:02→10:41)
[2018-10-09] MEDS: BUSPAR 5 MG PO SCH (09:29)
[2018-10-09] MEDS: NEURONTIN 300 MG PO SCH (09:31)
[2018-10-09] MEDS: Lotensin 10 MG PO SCH (09:32)
[2018-10-09] MEDS: ENOXAPARIN SODIUM SQ SCH (09:33)
[2018-10-09] MEDS: DELTASONE 20 MG PO SCH (09:33)
[2018-10-09] MEDS: Levaquin 250MG/50ML D5W 250 MG/50 ML BAG IV SCH (09:33)
[2018-10-09] MEDS: MAG-OX 400 PO SCH (09:34)
[2018-10-09] MEDS: NORVASC 5 MG PO SCH (09:42)
[2018-10-09] MEDS: Mirapex 0.5 MG Tablet PO SCH (09:48)
[2018-10-09] MEDS: Protonix 40MG Tablet PO SCH (09:50)
--- NOTE | 2018-10-09 11:21 | PCM.DCORD ---
- Discharge Discharge Date: 10/09/18 Disposition: Home, Self-Care Condition: Good Prescriptions: New Prednisone 20 mg [Deltasone 20 mg] 20 mg PO UD #12 tablet Albuterol/Ipratropium 3ml Neb* [DUONEB 0.5-3 MG/3 ml Neb] 3 ml IH Q4HRT PRN #50 ampul.neb PRN Reason: Shortness Of Breath Gabapentin 300 mg PO TID #21 capsule Levofloxacin [Levofloxacin 250MG Tablet] 250 mg PO DAILY #4 tab Magnesium Oxide [Magnesium] 400 mg PO DAILY #30 tablet Continue Omeprazole 20 mg PO DAILY Benazepril HCl 20 mg PO DAILY Amlodipine Besylate 5 mg [Norvasc 5 mg] 5 mg PO QAM #30 tablet Hydroxyzine HCl 25 mg [Atarax 25 mg] 25 mg PO TID PRN #10 tablet Pramipexole Di-HCl [Pramipexole Dihydrochloride] 0.125 mg PO BID Oxycodone/APAP 5 mg/325 mg [Percocet Tablet 5/325Mg] 5 mg PO TID Buspirone HCl 7.5 mg PO BID Additional Instructions: Wear oxygen 2 Liters at night. Discuss having pulmonary function testing done with Dr. Chairez. Follow up with: MARKY CHAIREZ [Primary Care Provider] - 1 Week
[2018-10-09 12:08] VITALS: BP 128/60; PULSE 84; O2SAT 96
--- NOTE | 2018-10-12 10:49 | DS ---
DISCHARGE DIAGNOSES: 1) LEG PAIN. 2) PERIPHERAL NEUROPATHY. 3) CHRONIC OBSTRUCTIVE PULMONARY DISEASE WITH BRONCHITIS. 4) HYPOXIA DUE TO CHRONIC OBSTRUCTIVE PULMONARY DISEASE. 5) DIABETES MELLITUS TYPE 2. 6) HYPOMAGNESEMIA. DISCHARGE PHYSICAL EXAMINATION: VITALS: Temperature current 98.2F, heart rate 81, respiratory rate 18, blood pressure 125/57. Oxygen saturation 95% on 2 liters nasal cannula. GENERAL: The patient is a pleasant talkative lady who is hard of hearing, sitting up in no acute distress. Her daughter is at the bedside. CVS: She has a regular rate and rhythm. No murmurs, gallops or rubs. CHEST: Diffuse scattered wheezes, equal breath sounds. No crackles. No rhonchi. ABDOMEN: Obese, soft, nontender, nondistended. EXTREMITIES: No clubbing, cyanosis or edema. SKIN: Warm, dry and intact. HOSPITAL COURSE: 1) LEG PAIN: She had bilateral venous Doppler's that were negative. She is continued on her home medications and gabapentin was started. She also had a CT scan of her chest that was negative for pulmonary embolism. 2) PERIPHERAL NEUROPATHIC PAIN: Better controlled with gabapentin. I sent her home with a seven day course to follow up with Dr. Chairez for continuation. 3) CHRONIC OBSTRUCTIVE PULMONARY DISEASE WITH BRONCHITIS: She was continued on Levaquin. I sent her home with prescription for four more days' worth. I also started her on steroids and her lung exam was markedly better after starting this. I prescribed a steroid taper. She qualified for oxygen at night and this was prescribed through [facility]. She will need to follow up with Dr. Chairez to see about pulmonary function testing. 4) HYPOXIA DUE TO CHRONIC OBSTRUCTIVE PULMONARY DISEASE: Again, at night she needs oxygen. 5) DIABETES MELLITUS TYPE 2: She was on a low dose sliding scale while here. Her blood sugars may run higher since she has been on the prednisone and again she will need to follow up with Dr. Chairez. 6) HYPOMAGNESEMIA: The magnesium was 1.1 on admission. She was given magnesium 400 mg p.o. b.i.d. I ran a prescription for magnesium 400 mg daily to continue as an outpatient. DISCHARGE MEDICATIONS: Please see the discharge order. FOLLOW UP: She is to follow up with Dr. Chairez this week. DISPOSITION: The patient was discharged to home in fair condition.
== END 2018-10-09 12:26 | disposition home or self-care (01) ==
LOC: ED 12:32 → MED SURG 17:51
PROVIDERS: ADMIT Family Medicine; ATTEND Family Medicine
DX: M79.605 Pain in left leg (principal); M79.604 Pain in right leg; G62.9 Polyneuropathy, unspecified; J44.9 Chronic obstructive pulmonary disease, unspecified; R09.02 Hypoxemia; E11.9 Type 2 diabetes mellitus without complications; E83.42 Hypomagnesemia; Z93.3 Colostomy status; Z79.899 Other long term (current) drug therapy; I10 Essential (primary) hypertension; E78.00 Pure hypercholesterolemia, unspecified; R20.2 Paresthesia of skin; R79.1 Abnormal coagulation profile; G47.00 Insomnia, unspecified
CPT/HCPCS: 36000; 36415; 71045; 71260; 72110; 80048; 80053; 81001; 82805; 82962; 83036; 83605; 83735; 83880; 84484; 85025; 85379; 85610; 87040; 87086; 87631; 93005; 93041; 93268; 93971; 94150; 94640; 94762; 96360; 96365; 96367; 96372; 96374; 96375; 99285; G0378; J1650; J1956; J2405; J3010; J3475; A9270-GY

== ENCOUNTER 2018-10-19 09:00 | Day surgery (SDC) | payer MEDICARE ==
[2018-10-19] MEDS ORDERED: Marcaine 0.5% SDV 10 ML IJ ONE (09:01)
[2018-10-19] MEDS ORDERED: Xylocaine-Mpf 2 ML IJ ONE (09:01)
[2018-10-19] MEDS ORDERED: Depo-Medrol 40 MG/ML IM ONE (09:01)
[2018-10-19] MEDS ORDERED: DIPRIVAN 200 MG/20 ML IV ONE (09:01)
[2018-10-19] MEDS ORDERED: Ketamine HCl 50 MG/ML IV ONE (09:01)
--- NOTE | 2018-10-19 14:03 | XRAY ---
6 seconds fluoroscopy time in surgery for left knee injection.
--- NOTE | 2018-10-19 14:03 | XRAY ---
17 seconds fluoroscopy time in surgery for right knee injection.
--- NOTE | 2018-10-19 14:10 | XRAY ---
Indication: Right knee injection. Intraoperative fluoroscopy was provided for 17 seconds. Single digital spot image submitted for interpretation demonstrates needle tip projecting over the right femur intercondylar notch. Small amount of contrast injected for needle tip placement. Correlate with intraoperative findings/report.
--- NOTE | 2018-10-19 14:10 | XRAY ---
Indication: Left knee injection. Intraoperative fluoroscopy was provided for 6 seconds. Single digital spot image submitted for interpretation demonstrates needle tip projecting over the left femur intercondylar notch. Small amount of contrast injected for needle tip placement. Correlate with intraoperative findings/report.
[2018-10-19] MEDS ORDERED: Lactated Ringers 1,000 ML IV ONE (15:38)
== END 2018-10-19 11:37 | disposition home or self-care (01) ==
LOC: SDC-PAIN 09:00
PROVIDERS: ATTEND Psychiatry & Neurology Pain Medicine
DX: M17.0 Bilateral primary osteoarthritis of knee (principal); E11.9 Type 2 diabetes mellitus without complications; Z79.899 Other long term (current) drug therapy; E78.5 Hyperlipidemia, unspecified; M79.7 Fibromyalgia; G62.9 Polyneuropathy, unspecified
CPT/HCPCS: 20610; 73560; 77002; 82962; J1030; J2704; Q9966

== ENCOUNTER 2019-05-29 12:35 | Observation (INO) | payer MEDICARE ==
[2019-05-29] MEDS ORDERED: Sodium Chloride 0.9% 1000 ML 1,000 ML IV STA (13:11)
[2019-05-29] MEDS ORDERED: DUONEB 0.5-3 MG/3 ml Neb IH ONE ×2 (13:13→14:02)
--- NOTE | 2019-05-29 13:15 | ERPHSYRPT ---
- History of Present Illness Time Seen by Provider: 05/29/19 13:00 Source: patient Exam Limitations: no limitations Physician History: Cough for the past 4 weeks. Seen and treated by her primary care provider one week ago. No evaluation or treatment prior to coming into the emergency department over the past week. Timing/Duration: week(s) (4) Cough Quality/Degree: moderate, productive cough Possible Cause: occasional episodes Modifying Factors: Worsens With: coughing, deep breath Associated Symptoms: fever, cough, shortness of breath, wheezing, No chills, No chest pain/soreness, No dizziness, No earache, No facial pain, No headache, No lightheadedness, No muscle aches, No nasal congestion, No nasal drainage, No sinus infection, No sore throat International travel in last 2 weeks: No Allergies/Adverse Reactions: alprazolam [From Xanax] Adverse Reaction (Unknown, Verified 05/29/19 13:11) morphine Adverse Reaction (Verified 05/29/19 13:11) promethazine HCl [From Phenergan] Adverse Reaction (Verified 05/29/19 13:11) Home Medications: Benazepril HCl 20 mg PO DAILY 07/10/17 [History] Omeprazole 20 mg PO DAILY 07/10/17 [History] Buspirone HCl 7.5 mg PO BID 09/25/18 [History] Oxycodone/APAP 5 mg/325 mg [Percocet Tablet 5/325Mg] 5 mg PO TID 09/25/18 [ History] Pramipexole Di-HCl [Pramipexole Dihydrochloride] 0.125 mg PO BID 09/25/18 [ History] Hx Tetanus, Diphtheria Vaccination/Date Given: No Hx Influenza Vaccination/Date Given: Yes Hx Pneumococcal Vaccination/Date Given: Yes - Review of Systems Constitutional: Fatigue, No Fever, No Chills Eyes: No Eye Pain, No Vision Changes Ears, Nose, & Throat: No Ear Discharge, No Nose Congestion, No Mouth Pain, No Mouth Swelling, No Painful Swallowing Respiratory: Cough, Dyspnea Cardiac: No Chest Pain, No Edema, No Syncope Abdominal/Gastrointestinal: No Abdominal Pain, No Nausea, No Vomiting, No Diarrhea, No Hematemesis, No Hematochezia, No Melena Genitourinary Symptoms: No Dysuria, No Hematuria, No Flank Pain Musculoskeletal: No Back Pain, No Neck Pain Skin: No Rash Neurological: No Dizziness, No Focal Weakness, No Sensory Changes Psychological: No Emotional Lability Endocrine: No Excessive Sweating Hematologic/Lymphatic: No Easy Bleeding, No Easy Bruising All Other Systems: Reviewed and Negative - Past Medical History Pertinent Past Medical History: Yes Neurological History: No Pertinent History ENT History: Other Cardiac History: Angina, High Cholesterol, Hypertension Respiratory History: COPD Endocrine Medical History: Diabetes Type II Musculoskeletal History: No Pertinent History, Other GI Medical History: Other History: No Pertinent History Psycho-Social History: No Pertinent History Female Reproductive Disorders: No Pertinent History Other Medical History: NEUROPOTHY, bowel obstruction, pt poor historian, [place]. COLON CA. colostomy - Past Surgical History Past Surgical History: Yes Neuro Surgical History: No Pertinent History Cardiac: No Pertinent History Respiratory: No Pertinent History Gastrointestinal: Appendectomy, Cholecystectomy, Colon Resection Genitourinary: No Pertinent History Musculoskeletal: No Pertinent History Female Surgical History: Hysterectomy Other Surgical History: eye surgery. OSTOMY PLACED DUE TO BOWEL OBSTRUCTION, pt poor historian - Social History Smoking Status: Never smoker Exposure to second hand smoke: Yes (BF smokes) Drug Use: none Patient Lives Alone: No - Nursing Vital Signs Nursing Vital Signs: Initial Vital Signs Temperature 98.1 F 05/29/19 12:59 Pulse Rate 121 H 05/29/19 12:59 Respiratory Rate 22 05/29/19 12:59 Blood Pressure 163/80 05/29/19 12:59 O2 Sat by Pulse Oximetry 96 05/29/19 12:59 Pain Scale Pain Intensity 0 - Physical Exam General Appearance: no apparent distress, alert Eye Exam: PERRL/EOMI, eyes nml inspection Ears, Nose, Throat Exam: normal ENT inspection, pharynx normal, moist mucous membranes, TM abnormal (R) (perforated with clear serous drainage), No TM abnormal (L), No pharyngeal erythema, No tonsillar exudate Neck Exam: normal inspection, non-tender, supple, full range of motion, No meningismus, No Brudzinski, No Kernig's, No JVD Respiratory Exam: normal breath sounds, lungs clear, diminished breath sounds, No respiratory distress, No accessory muscle use, No crackles/rales, No rhonchi , No wheezing, No stridor Cardiovascular Exam: regular rate/rhythm, normal peripheral pulses, tachycardia , capillary refill <2 sec Gastrointestinal/Abdomen Exam: soft, normal bowel sounds, No tenderness, No distention, No guarding, No pulsatile mass, No rebound Back Exam: normal inspection, No CVA tenderness, No vertebral tenderness Extremity Exam: normal inspection, normal range of motion, No calf tenderness, No tamra's sign, No swelling Neurologic Exam: alert, oriented x 3, cooperative, filbert grower II-XII nml as tested, normal mood/affect, sensation nml, No motor deficits Skin Exam: normal color, warm, dry, No rash Lymphatic Exam: No adenopathy - Course Nursing assessment & vital signs reviewed: Yes EKG Interpreted by Me: RATE (111), Sinus Tach, NORMAL AXIS, NORMAL INTERVALS, NORMAL QRS, NORMAL ST-T, Other (negative significant change from previous EKG for comparison from 10/06/2018) - Radiology Exams Chest X-ray Interpretation: Interpreted by me, Reviewed by me, Negative, No Pneumonia , No Pneumothorax, Nml Heart Size, No Infiltrates, Nml Mediastinum, Other (pper radiologist interpretation: Chest remained clear. Heart Muna P. portable technique. Bony thorax intact mild degenerative changes. Overall impression stable nonacute chest.) Ordered Tests: Active Orders 24 hr Category Date Time Status [employer]orer [employer]age STAT Care 05/29/19 13:12 Active EKG-ER Only STAT Care 05/29/19 13:11 Active IV Insertion STAT Care 05/29/19 13:11 Active IV Insertion-2nd Peripheral STAT Care 05/29/19 13:17 Active CHEST 1 VIEW (PORTABLE) Stat Exams 05/29/19 13:12 Completed AMYLASE Stat Lab 05/29/19 13:04 Completed BLOOD CULTURE Stat Lab 05/29/19 13:04 Received CBC W DIFF Stat Lab 05/29/19 13:04 Completed CMP Stat Lab 05/29/19 13:04 Completed CULTURE,URINE Stat Lab 05/29/19 13:36 Ordered LIPASE Stat Lab 05/29/19 13:04 Completed Lactic Acid Stat Lab 05/29/19 13:30 Results MAGNESIUM Stat Lab 05/29/19 13:29 Completed PROTIME WITH INR Stat Lab 05/29/19 13:04 Completed PTT Stat Lab 05/29/19 13:04 Completed UA W/RFX UR CULTURE Stat Lab 05/29/19 13:36 Completed VENOUS BLOOD GAS Stat Lab 05/29/19 13:30 Results Respiratory Therapy Assessment ONCE RT 05/29/19 14:04 Active Medication Summary Generic Name Dose Route Start Last Admin Trade Name Keenanq PRN Reason Stop Dose Admin Magnesium Sulfate/Dextrose 100 mls @ 100 mls/hr 05/29/19 14:30 05/29/19 14:29 Magnesium 1 Gm / 100 Ml D5w IV 05/29/19 16:29 100 mls/hr Q1H ANAIS Administration Discontinued Medications Generic Name Dose Route Start Last Admin Trade Name Freq PRN Reason Stop Dose Admin Albuterol/Ipratropium 3 ml 05/29/19 13:13 05/29/19 14:04 Duoneb 0.5-3 Mg/3 Ml Neb IH 05/29/19 13:14 3 ml STAT ONE Administration Albuterol/Ipratropium Confirm 05/29/19 14:02 Duoneb 0.5-3 Mg/3 Ml Neb Administered 05/29/19 14:03 Dose 3 ml IH .STK-MED ONE Sodium Chloride 1,000 mls @ 999 mls/hr 05/29/19 13:11 05/29/19 14:20 Sodium Chloride 0.9% 1000 Ml IV 05/29/19 14:11 Infused .Q1H1M STA Infusion Sodium Chloride Confirm 05/29/19 13:18 Sodium Chloride 0.9% 1000 Ml Administered 05/29/19 13:19 Dose 1,000 mls @ ud .ROUTE .STK-MED ONE Lab/Rad Data: Laboratory Result Diagrams 05/29/19 13:04 05/29/19 13:04 Laboratory Results 05/29/19 05/29/19 05/29/19 Range/Units 13:36 13:30 13:29 WBC (4.0-10.5) K/mm3 RBC (4.1-5.4) M/mm3 Hgb (12.0-16.0) gm/dl Hct (35-47) % MCV (78-100) fl MCH (26-32) pg MCHC (32-36) g/dl RDW (11.5-14.0) % Plt Count (150-450) K/mm3 MPV (6-9.5) fl Gran % (36.0-66.0) % Eos # (Auto) (0-0.5) Absolute Lymphs (auto) (1.0-4.6) Absolute Monos (auto) (0.0-1.3) Lymphocytes % (24.0-44.0) % Monocytes % (0.0-12.0) % Eosinophils % (0.00-5.0) % Basophils % (0.0-0.4) % Absolute Granulocytes (1.4-6.9) Basophils # (0-0.4) PT (9.95-12.35) SECONDS INR (0.8-3.0) APTT (25.3-37.0) SECONDS pO2/FiO2 Ratio 21.0 % VBG pH 7.36 (7.32-7.42) VBG pCO2 at Pat Temp 44 (42-55) mm/Hg VBG pO2 at Pat Temp 28 (25-40) mm/Hg VBG HCO3 24.9 (22-28) meq/L VBG O2 Sat (Brooke) 62.7 L (95-100) VBG Base Excess -0.8 (-2.0-2.0) VBG Hemoglobin 13.8 VBG Carboxyhemoglobin 2.5 (0.0-6.9) % T HGB POC Potassium 4.4 (3.5-5.1) Sodium (137-145) mmol/L Potassium (3.5-5.1) mmol/L Chloride (98-107) mmol/L Carbon Dioxide (22-30) mmol/L Anion Gap (5-15) MEQ/L BUN (7-17) mg/dL Creatinine (0.52-1.04) mg/dL Estimated GFR ML/MIN Glucose (74-106) mg/dL Lactic Acid 3.6 H (0.4-2.0) Calcium (8.4-10.2) mg/dL Magnesium 1.0 L* (1.6-2.3) mg/dL Total Bilirubin (0.2-1.3) mg/dL AST (14-36) U/L ALT (0-35) U/L Alkaline Phosphatase (38-126) U/L Serum Total Protein (6.3-8.2) g/dL Albumin (3.5-5.0) g/dL Amylase (30-110) U/L Lipase (23-300) U/L Urine Color YELLOW (YELLOW) Urine Appearance SLIGHTLY CLOUDY (CLEAR) Urine pH 5.0 (5-6) Ur Specific [place] 1.019 (1.005-1.025) Urine Protein NEGATIVE (Negative) Urine Ketones NEGATIVE (NEGATIVE) Urine Blood NEGATIVE (0-5) Luis/ul Urine Nitrite NEGATIVE (NEGATIVE) Urine Bilirubin NEGATIVE (NEGATIVE) Urine Urobilinogen NEGATIVE (0-1) mg/dL Ur Leukocyte Esterase NEGATIVE (NEGATIVE) Urine WBC (Auto) 0-2 (0-5) /HPF Urine RBC (Auto) NONE (0-2) /HPF U Epithel Cells (Auto) RARE (FEW) /HPF Urine Bacteria (Auto) RARE (NEGATIVE) /HPF Urine Mucus (Auto) SLIGHT (NEGATIVE) /HPF Urine Culture Reflexed ORDERED SEPARATELY (NO) Urine Glucose NEGATIVE (NEGATIVE) mg/dL Influenza Type A Ag (NEGATIVE) Influenza Type B Ag (NEGATIVE) RSV (PCR) (Negative) 05/29/19 05/29/19 05/29/19 Range/Units 13:04 13:04 13:04 WBC (4.0-10.5) K/mm3 RBC (4.1-5.4) M/mm3 Hgb (12.0-16.0) gm/dl Hct (35-47) % MCV (78-100) fl MCH (26-32) pg MCHC (32-36) g/dl RDW (11.5-14.0) % Plt Count (150-450) K/mm3 MPV (6-9.5) fl Gran % (36.0-66.0) % Eos # (Auto) (0-0.5) Absolute Lymphs (auto) (1.0-4.6) Absolute Monos (auto) (0.0-1.3) Lymphocytes % (24.0-44.0) % Monocytes % (0.0-12.0) % Eosinophils % (0.00-5.0) % Basophils % (0.0-0.4) % Absolute Granulocytes (1.4-6.9) Basophils # (0-0.4) PT 13.7 H (9.95-12.35) SECONDS INR 1.21 (0.8-3.0) APTT 33.8 (25.3-37.0) SECONDS pO2/FiO2 Ratio % VBG pH (7.32-7.42) VBG pCO2 at Pat Temp (42-55) mm/Hg VBG pO2 at Pat Temp (25-40) mm/Hg VBG HCO3 (22-28) meq/L VBG O2 Sat (Brooke) (95-100) VBG Base Excess (-2.0-2.0) VBG Hemoglobin VBG Carboxyhemoglobin (0.0-6.9) % T HGB POC Potassium (3.5-5.1) Sodium 143 (137-145) mmol/L Potassium 4.2 (3.5-5.1) mmol/L Chloride 106 (98-107) mmol/L Carbon Dioxide 26 (22-30) mmol/L Anion Gap 15.5 H (5-15) MEQ/L BUN 17 (7-17) mg/dL Creatinine 1.07 H (0.52-1.04) mg/dL Estimated GFR 52.7 ML/MIN Glucose 159 H (74-106) mg/dL Lactic Acid (0.4-2.0) Calcium 9.3 (8.4-10.2) mg/dL Magnesium (1.6-2.3) mg/dL Total Bilirubin 0.40 (0.2-1.3) mg/dL AST 47 H (14-36) U/L ALT 30 (0-35) U/L Alkaline Phosphatase 87 (38-126) U/L Serum Total Protein 8.8 H (6.3-8.2) g/dL Albumin 4.1 (3.5-5.0) g/dL Amylase 66 (30-110) U/L Lipase 86 (23-300) U/L Urine Color (YELLOW) Urine Appearance (CLEAR) Urine pH (5-6) Ur Specific [place] (1.005-1.025) Urine Protein (Negative) Urine Ketones (NEGATIVE) Urine Blood (0-5) Luis/ul Urine Nitrite (NEGATIVE) Urine Bilirubin (NEGATIVE) Urine Urobilinogen (0-1) mg/dL Ur Leukocyte Esterase (NEGATIVE) Urine WBC (Auto) (0-5) /HPF Urine RBC (Auto) (0-2) /HPF U Epithel Cells (Auto) (FEW) /HPF Urine Bacteria (Auto) (NEGATIVE) /HPF Urine Mucus (Auto) (NEGATIVE) /HPF Urine Culture Reflexed (NO) Urine Glucose (NEGATIVE) mg/dL Influenza Type A Ag NEGATIVE (NEGATIVE) Influenza Type B Ag NEGATIVE (NEGATIVE) RSV (PCR) NEGATIVE (Negative) 05/29/19 Range/Units 13:04 WBC 9.2 (4.0-10.5) K/mm3 RBC 4.02 L (4.1-5.4) M/mm3 Hgb 12.6 (12.0-16.0) gm/dl Hct 40.1 (35-47) % MCV 99.8 (78-100) fl MCH 31.3 (26-32) pg MCHC 31.4 L (32-36) g/dl RDW 15.6 H (11.5-14.0) % Plt Count 262 (150-450) K/mm3 MPV 10.3 H (6-9.5) fl Gran % 73.8 H (36.0-66.0) % Eos # (Auto) 0.18 (0-0.5) Absolute Lymphs (auto) 1.65 (1.0-4.6) Absolute Monos (auto) 0.58 (0.0-1.3) Lymphocytes % 17.9 L (24.0-44.0) % Monocytes % 6.3 (0.0-12.0) % Eosinophils % 1.9 (0.00-5.0) % Basophils % 0.1 (0.0-0.4) % Absolute Granulocytes 6.82 (1.4-6.9) Basophils # 0.01 (0-0.4) PT (9.95-12.35) SECONDS INR (0.8-3.0) APTT (25.3-37.0) SECONDS pO2/FiO2 Ratio % VBG pH (7.32-7.42) VBG pCO2 at Pat Temp (42-55) mm/Hg VBG pO2 at Pat Temp (25-40) mm/Hg VBG HCO3 (22-28) meq/L VBG O2 Sat (Brooke) (95-100) VBG Base Excess (-2.0-2.0) VBG Hemoglobin VBG Carboxyhemoglobin (0.0-6.9) % T HGB POC Potassium (3.5-5.1) Sodium (137-145) mmol/L Potassium (3.5-5.1) mmol/L Chloride (98-107) mmol/L Carbon Dioxide (22-30) mmol/L Anion Gap (5-15) MEQ/L BUN (7-17) mg/dL Creatinine (0.52-1.04) mg/dL Estimated GFR ML/MIN Glucose (74-106) mg/dL Lactic Acid (0.4-2.0) Calcium (8.4-10.2) mg/dL Magnesium (1.6-2.3) mg/dL Total Bilirubin (0.2-1.3) mg/dL AST (14-36) U/L ALT (0-35) U/L Alkaline Phosphatase (38-126) U/L Serum Total Protein (6.3-8.2) g/dL Albumin (3.5-5.0) g/dL Amylase (30-110) U/L Lipase (23-300) U/L Urine Color (YELLOW) Urine Appearance (CLEAR) Urine pH (5-6) Ur Specific [place] (1.005-1.025) Urine Protein (Negative) Urine Ketones (NEGATIVE) Urine Blood (0-5) Luis/ul Urine Nitrite (NEGATIVE) Urine Bilirubin (NEGATIVE) Urine Urobilinogen (0-1) mg/dL Ur Leukocyte Esterase (NEGATIVE) Urine WBC (Auto) (0-5) /HPF Urine RBC (Auto) (0-2) /HPF U Epithel Cells (Auto) (FEW) /HPF Urine Bacteria (Auto) (NEGATIVE) /HPF Urine Mucus (Auto) (NEGATIVE) /HPF Urine Culture Reflexed (NO) Urine Glucose (NEGATIVE) mg/dL Influenza Type A Ag (NEGATIVE) Influenza Type B Ag (NEGATIVE) RSV (PCR) (Negative) - Progress Progress: improved Air Movement: good Progress Note: 05/29/19 14:44 Patient is doing well with no respiratory distress, sinus rhythm with no ectopy , no arrhythmias, no widening of the QRS complex, no A-V blockage, no signs of ischemia, injury or infarction on the monitor Blood Culture(s) Obtained: Yes Antibiotics given: No Discussed with DrNick: Derek (@15:00, discussed the patient with Dr Chairez, hospitalist at [facility]. Dr Chairez accepted the patient for observation to telemetry at [facility].) - Departure Departure Disposition: Home, Observation (to [facility]) Clinical Impression: Cough, Hypomagnesemia, Lactic acidosis, COPD exacerbation Condition: Fair Critical Care Time: No Referrals: MARKY CHAIREZ [Primary Care Provider] - Instructions: Chronic Obstructive Pulmonary Disease
[2019-05-29] MEDS ORDERED: Sodium Chloride 0.9% 1000 ML 1,000 ML ONE (13:18)
[2019-05-29 13:19] LABS: Absolute Neutrophil Ct (ANC) 6.82 (1.4-6.9); BASOPHIL % 0.1 % (0.0-0.4); Basophil (Absolute #) 0.01 (0-0.4); Eosinophil % 1.9 % (0.00-5.0); Eosinophil (Absolute #) 0.18 (0-0.5); Hematocrit 40.1 % (35-47); Hemoglobin 12.6 gm/dl (12.0-16.0); Lymphocyte (Absolute #) 1.65 (1.0-4.6); Lymphocytes % 17.9 % (24.0-44.0); Mean Cell Volume 99.8 fl (78-100); Mean Corpuscular Hemoglobin 31.3 pg (26-32); Mean Corpuscular Hgb Concent. 31.4 g/dl (32-36); Mean Platelet Volume 10.3 fl (6-9.5); Monocyte (Absolute #) 0.58 (0.0-1.3); Monocytes % 6.3 % (0.0-12.0); Neutrophil % 73.8 % (36.0-66.0); Platelet Count 262 K/mm3 (150-450); Red Blood Count 4.02 M/mm3 (4.1-5.4); Red Cell Distribution Width 15.6 % (11.5-14.0); White Blood Count 9.2 K/mm3 (4.0-10.5)
[2019-05-29 13:28] LABS: INR 1.21 (0.8-3.0); PROTIME 13.7 SECONDS (9.95-12.35)
[2019-05-29 13:30] LABS: PTT 33.8 SECONDS (25.3-37.0)
[2019-05-29 13:32] LABS: ALBUMIN 4.1 g/dL (3.5-5.0); ANION GAP 15.5 MEQ/L (5-15); BILIRUBIN,TOTAL 0.4 mg/dL (0.2-1.3); Calcium 9.3 mg/dL (8.4-10.2); Creatinine 1 1.07 mg/dL (0.52-1.04); Potassium 4.2 mmol/L (3.5-5.1); Total Protein 8.8 g/dL (6.3-8.2)
[2019-05-29 13:34] LABS: Lactic Acid 3.6 (0.4-2.0); VBG BASE EXCESS -0.8 (-2.0-2.0); VBG CARBOXYHEMOGLOBIN 2.5 % T HGB (0.0-6.9); VBG HCO3- 24.9 meq/L (22-28); VBG HEMOGLOBIN 13.8; VBG O2 SATURATION 62.7 (95-100); VBG PCO2 44 mm/Hg (42-55); VBG PO2 28 mm/Hg (25-40); VBG POTASSIUM 4.4 (3.5-5.1); VBG pH 7.36 (7.32-7.42)
--- NOTE | 2019-05-29 13:36 | XRAY ---
Indication: Cough 4 weeks. Comparison: October 06, 2018. Portable chest remains clear. Heart is not enlarged for AP portable technique. Bony thorax intact again with mild degenerative changes. Impression: Stable nonacute chest.
[2019-05-29 13:50] LABS: INFLUENZA A NEGATIVE (NEGATIVE); INFLUENZA B NEGATIVE (NEGATIVE); RESPIRATORY SYNCTIAL VIRUS NEGATIVE (Negative)
[2019-05-29 13:59] LABS: Appearance SLIGHTLY CLOUDY (CLEAR); Bacteria RARE /HPF (NEGATIVE); Bilirubin NEGATIVE (NEGATIVE); Blood NEGATIVE Ery/ul (0-5); Epithelial Cells RARE /HPF (FEW); Glucose NEGATIVE (NEGATIVE); Ketones NEGATIVE (NEGATIVE); Leukocyte Esterase NEGATIVE (NEGATIVE); Mucus SLIGHT /HPF (NEGATIVE); Nitrite NEGATIVE (NEGATIVE); Protein,Urine Dip NEGATIVE (Negative); Specific Gravity 1.019 (1.005-1.025); Urobilinogen NEGATIVE mg/dL (0-1); WBC 0-2 /HPF (0-5)
[2019-05-29] MEDS ORDERED: Magnesium 1 Gm / 100 Ml D5W*** 100 ML IV SCH (14:30)
[2019-05-29] MEDS ORDERED: TYLENOL 325 MG PO PRN (15:38)
[2019-05-29] MEDS: Sodium Chloride 0.9% 1000 ML 1,000 ML IV SCH (16:39)
[2019-05-29] MEDS: ROCEPHIN 1 Gm-D5w 50 ml Bag** 1 G/50 ML IVPB IV SCH (16:39)
[2019-05-29] MEDS ORDERED: DUONEB 0.5-3 MG/3 ml Neb IH PRN (18:06)
[2019-05-29] MEDS ORDERED: ATARAX 25 MG PO PRN (18:15)
[2019-05-29] MEDS ORDERED: Zithromax 500 MG/ 250 ML NaCl Premix 500 MG/250 ML IVPB IV SCH (19:00)
[2019-05-29] MEDS: DUONEB 0.5-3 MG/3 ml Neb IH SCH (21:22)
[2019-05-29] MEDS: Mirapex 0.5 MG Tablet PO SCH (21:42)
[2019-05-29] MEDS: Pepcid 20 MG PO SCH (21:43)
[2019-05-29] MEDS: MAG-OX 400 PO SCH (21:43)
[2019-05-29] MEDS: NEURONTIN 300 MG PO SCH (21:43)
[2019-05-30] MEDS: PERCOCET TABLET 5/325MG PO PRN ×3 (00:08→20:18)
[2019-05-30] MEDS: Sodium Chloride 0.9% 1000 ML 1,000 ML IV SCH ×4 (00:35→21:26)
[2019-05-30] MEDS: DUONEB 0.5-3 MG/3 ml Neb IH SCH ×5 (01:30→22:20)
[2019-05-30 04:35] LABS: Absolute Neutrophil Ct (ANC) 4.58 (1.4-6.9); BASOPHIL % 0.1 % (0.0-0.4); Basophil (Absolute #) 0.01 (0-0.4); Eosinophil % 2.3 % (0.00-5.0); Eosinophil (Absolute #) 0.16 (0-0.5); Hematocrit 33.6 % (35-47); Hemoglobin 10.7 gm/dl (12.0-16.0); Lymphocyte (Absolute #) 1.53 (1.0-4.6); Lymphocytes % 22.5 % (24.0-44.0); Mean Corpuscular Hemoglobin 31.8 pg (26-32); Mean Corpuscular Hgb Concent. 31.8 g/dl (32-36); Mean Platelet Volume 10.6 fl (6-9.5); Monocyte (Absolute #) 0.53 (0.0-1.3); Monocytes % 7.8 % (0.0-12.0); Neutrophil % 67.3 % (36.0-66.0); Platelet Count 228 K/mm3 (150-450); Red Blood Count 3.36 M/mm3 (4.1-5.4); Red Cell Distribution Width 15.9 % (11.5-14.0); White Blood Count 6.8 K/mm3 (4.0-10.5)
[2019-05-30 05:25] LABS: ANION GAP 8.6 MEQ/L (5-15); Calcium 8.4 mg/dL (8.4-10.2); Creatinine 1 0.98 mg/dL (0.52-1.04); Potassium 3.9 mmol/L (3.5-5.1)
--- NOTE | 2019-05-30 08:38 | PCM.HP ---
History of Present Illness - Chief Complaint Chief Complaint: copd exacerbation, hypomagnesia, lactic acidosis History of Present Illness: is a 78 year old female pt of mine from [facility] with colostomy, hx diverticulitis, DM, HTN, and hyperlipidemia who was admitted through ER yesterday with respiratory symptoms (pt states she was "feeling funny"). She had seen me in office last week, on exam had decreased breath sounds and expiratory wheezing throughout; from history and physical was thought to have pneumonia but would not get a chest xray. She was given one dose IM rocehpin in office and started on po augmentin. She is a difficult historian but her daughter says she has had fever up to 102 at home. In ER she was afebrile with normal WBC count and cxr. Her lactate was elevated and she was tachycardic. I started her on IV rocephin and zithromax. She is getting nebulizer treatments, which do help. Tolerating po. - Review of Systems Constitutional: Fever Respiratory: Cough, Short Of Breath Abdominal/Gastrointestinal: Other (daughter states blood from the ostomy ( internally); pt seems to dispute this. intermittent watery stools) Psychological: Anxiety, Depression All Other Systems: Reviewed and Negative Medications & Allergies Home Medications: Home Medication List Benazepril HCl 20 mg PO DAILY 07/10/17 [History Confirmed 05/29/19] Omeprazole 20 mg PO DAILY 07/10/17 [History Confirmed 05/29/19] Amlodipine Besylate 5 mg [Norvasc 5 mg] 5 mg PO QAM #30 tablet 07/29/17 [ Rx Confirmed 05/29/19] Hydroxyzine HCl 25 mg [Atarax 25 mg] 25 mg PO TID PRN #10 tablet 09/05/17 [Rx Confirmed 05/29/19] Oxycodone/APAP 5 mg/325 mg [Percocet Tablet 5/325Mg] 5 mg PO QID PRN PRN [History Confirmed 05/29/19] Pramipexole Di-HCl [Pramipexole Dihydrochloride] 0.25 mg PO HS 09/25/18 [ History Confirmed 05/29/19] Albuterol/Ipratropium 3ml Neb* [DUONEB 0.5-3 MG/3 ml Neb] 3 ml IH Q4HRT PRN # 50 ampul.neb 10/09/18 [Rx Confirmed 05/29/19] Magnesium Oxide [Magnesium] 400 mg PO DAILY #30 tablet 10/09/18 [Rx Confirmed ] Amoxicillin/Potassium Clav [Amox Tr-K Clv 875-125 mg Tab] 1 each PO BID [History Confirmed 05/29/19] Fluoxetine HCl 20 mg [Prozac 20 MG] 20 mg PO DAILY 05/29/19 [History Confirmed 05/29/19] Gabapentin 300 mg PO QID 05/29/19 [History Confirmed 05/29/19] Simvastatin 20Mg [Zocor 20Mg] 20 mg PO DAILY 05/29/19 [History Confirmed 08/16] Allergies/Adverse Reactions: Allergies Allergy/AdvReac Type Severity Reaction Status Date / Time alprazolam [From Xanax] AdvReac Unknown Verified 05/29/19 13:11 morphine AdvReac Verified 05/29/19 13:11 promethazine HCl AdvReac Verified 05/29/19 13:11 [From Phenergan] - Past Medical History Past Medical History: Yes Neurological History: No Pertinent History ENT History: Other Cardiac History: Angina, High Cholesterol, Hypertension Respiratory History: COPD Endocrine Medical History: Diabetes Type II Musculoskelatal History: No Pertinent History, Other GI Medical History: Other History: No Pertinent History Pyscho-Social History: No Pertinent History Reproductive Disorders: No Pertinent History Comment: NEUROPOTHY, bowel obstruction, pt poor historian, [place]. COLON CA. colostomy - Female History Are you now?: No - Past Surgical History Past Surgical History: Yes Neuro Surgical History: No Pertinent History Cardiac History: No Pertinent History Respiratory Surgery: No Pertinent History GI Surgical History: Appendectomy, Cholecystectomy, Colon Resection Genitourinary Surgical Hx: No Pertinent History Musculskeletal Surgical Hx: No Pertinent History Female Surgical History: Hysterectomy Other Surgical History: eye surgery. OSTOMY PLACED DUE TO BOWEL OBSTRUCTION, pt poor historian - Social History Smoking Status: Former smoker Exposure to second hand smoke: Yes (BF smokes) Alcohol: None Drug Use: none - Physical Exam Vital Signs: Vital Signs - 24 hr Temp Pulse Resp BP Pulse Ox 05/30/19 07:10 98.2 F 83 20 128/61 93 L 05/30/19 04:00 97.9 F 92 H 16 111/58 90 L 05/30/19 00:00 98.5 F 95 H 18 127/60 90 L 05/29/19 21:22 92 H 18 92 L 05/29/19 19:39 98 F 96 H 18 139/63 90 L 05/29/19 16:10 97 H 18 92 L 05/29/19 15:50 98.2 F 96 H 18 113/56 95 05/29/19 15:48 98.2 F 96 H 20 113/56 95 05/29/19 15:07 100 H 16 114/73 92 L 05/29/19 14:04 94 H 18 95 05/29/19 13:30 110 H 18 119/86 95 05/29/19 12:59 98.1 F 121 H 22 163/80 96 Oxygen-Last 24 hours O2 Percentage 4 Liters = 36% General Appearance: no apparent distress, alert Neurologic Exam: cooperative, normal mood/affect Ears, Nose, Throat Exam: moist mucous membranes, other (hard of hearing) Neck Exam: normal inspection Respiratory Exam: diminished breath sounds, No crackles/rales, No rhonchi, No wheezing Cardiovascular Exam: regular rate/rhythm, normal heart sounds, No murmur Gastrointestinal/Abdomen Exam: soft, normal bowel sounds, other (ostomy present LLQ), No tenderness, No distention, No mass, No guarding, No rebound Extremity Exam: normal inspection, No pedal edema, No swelling Skin Exam: normal color, warm, dry, No rash Results - Labs Lab/Micro Results: Accuchecks Date 05/29/19 Time 22:00 Accucheck Value: 137 Accucheck Value: 142 Lab Results-Last 24 Hours 05/29/19 05/29/19 05/29/19 Range/Units 13:04 13:04 13:04 WBC 9.2 (4.0-10.5) K/mm3 RBC 4.02 L (4.1-5.4) M/mm3 Hgb 12.6 (12.0-16.0) gm/dl Hct 40.1 (35-47) % MCV 99.8 (78-100) fl MCH 31.3 (26-32) pg MCHC 31.4 L (32-36) g/dl RDW 15.6 H (11.5-14.0) % Plt Count 262 (150-450) K/mm3 MPV 10.3 H (6-9.5) fl Gran % 73.8 H (36.0-66.0) % Eos # (Auto) 0.18 (0-0.5) Absolute Lymphs (auto) 1.65 (1.0-4.6) Absolute Monos (auto) 0.58 (0.0-1.3) Lymphocytes % 17.9 L (24.0-44.0) % Monocytes % 6.3 (0.0-12.0) % Eosinophils % 1.9 (0.00-5.0) % Basophils % 0.1 (0.0-0.4) % Absolute Granulocytes 6.82 (1.4-6.9) Basophils # 0.01 (0-0.4) PT 13.7 H (9.95-12.35) SECONDS INR 1.21 (0.8-3.0) APTT 33.8 (25.3-37.0) SECONDS pO2/FiO2 Ratio % VBG pH (7.32-7.42) VBG pCO2 at Pat Temp (42-55) mm/Hg VBG pO2 at Pat Temp (25-40) mm/Hg VBG HCO3 (22-28) meq/L VBG O2 Sat (Brooke) (95-100) VBG Base Excess (-2.0-2.0) VBG Hemoglobin VBG Carboxyhemoglobin (0.0-6.9) % T HGB POC Potassium (3.5-5.1) Sodium 143 (137-145) mmol/L Potassium 4.2 (3.5-5.1) mmol/L Chloride 106 (98-107) mmol/L Carbon Dioxide 26 (22-30) mmol/L Anion Gap 15.5 H (5-15) MEQ/L BUN 17 (7-17) mg/dL Creatinine 1.07 H (0.52-1.04) mg/dL Estimated GFR 52.7 ML/MIN Glucose 159 H (74-106) mg/dL Hemoglobin A1c (4.5-6.0) % Lactic Acid (0.4-2.0) Calcium 9.3 (8.4-10.2) mg/dL Magnesium (1.6-2.3) mg/dL Total Bilirubin 0.40 (0.2-1.3) mg/dL AST 47 H (14-36) U/L ALT 30 (0-35) U/L Alkaline Phosphatase 87 (38-126) U/L Serum Total Protein 8.8 H (6.3-8.2) g/dL Albumin 4.1 (3.5-5.0) g/dL Prealbumin (17.6-36.0) mg/dL Amylase 66 (30-110) U/L Lipase 86 (23-300) U/L Urine Color (YELLOW) Urine Appearance (CLEAR) Urine pH (5-6) Ur Specific [place] (1.005-1.025) Urine Protein (Negative) Urine Ketones (NEGATIVE) Urine Blood (0-5) Luis/ul Urine Nitrite (NEGATIVE) Urine Bilirubin (NEGATIVE) Urine Urobilinogen (0-1) mg/dL Ur Leukocyte Esterase (NEGATIVE) Urine WBC (Auto) (0-5) /HPF Urine RBC (Auto) (0-2) /HPF U Epithel Cells (Auto) (FEW) /HPF Urine Bacteria (Auto) (NEGATIVE) /HPF Urine Mucus (Auto) (NEGATIVE) /HPF Urine Culture Reflexed (NO) Urine Glucose (NEGATIVE) mg/dL Influenza Type A Ag (NEGATIVE) Influenza Type B Ag (NEGATIVE) RSV (PCR) (Negative) 05/29/19 05/29/19 05/29/19 Range/Units 13:04 13:29 13:30 WBC (4.0-10.5) K/mm3 RBC (4.1-5.4) M/mm3 Hgb (12.0-16.0) gm/dl Hct (35-47) % MCV (78-100) fl MCH (26-32) pg MCHC (32-36) g/dl RDW (11.5-14.0) % Plt Count (150-450) K/mm3 MPV (6-9.5) fl Gran % (36.0-66.0) % Eos # (Auto) (0-0.5) Absolute Lymphs (auto) (1.0-4.6) Absolute Monos (auto) (0.0-1.3) Lymphocytes % (24.0-44.0) % Monocytes % (0.0-12.0) % Eosinophils % (0.00-5.0) % Basophils % (0.0-0.4) % Absolute Granulocytes (1.4-6.9) Basophils # (0-0.4) PT (9.95-12.35) SECONDS INR (0.8-3.0) APTT (25.3-37.0) SECONDS pO2/FiO2 Ratio 21.0 % VBG pH 7.36 (7.32-7.42) VBG pCO2 at Pat Temp 44 (42-55) mm/Hg VBG pO2 at Pat Temp 28 (25-40) mm/Hg VBG HCO3 24.9 (22-28) meq/L VBG O2 Sat (Brooke) 62.7 L (95-100) VBG Base Excess -0.8 (-2.0-2.0) VBG Hemoglobin 13.8 VBG Carboxyhemoglobin 2.5 (0.0-6.9) % T HGB POC Potassium 4.4 (3.5-5.1) Sodium (137-145) mmol/L Potassium (3.5-5.1) mmol/L Chloride (98-107) mmol/L Carbon Dioxide (22-30) mmol/L Anion Gap (5-15) MEQ/L BUN (7-17) mg/dL Creatinine (0.52-1.04) mg/dL Estimated GFR ML/MIN Glucose (74-106) mg/dL Hemoglobin A1c (4.5-6.0) % Lactic Acid 3.6 H (0.4-2.0) Calcium (8.4-10.2) mg/dL Magnesium 1.0 L* (1.6-2.3) mg/dL Total Bilirubin (0.2-1.3) mg/dL AST (14-36) U/L ALT (0-35) U/L Alkaline Phosphatase (38-126) U/L Serum Total Protein (6.3-8.2) g/dL Albumin (3.5-5.0) g/dL Prealbumin (17.6-36.0) mg/dL Amylase (30-110) U/L Lipase (23-300) U/L Urine Color (YELLOW) Urine Appearance (CLEAR) Urine pH (5-6) Ur Specific [place] (1.005-1.025) Urine Protein (Negative) Urine Ketones (NEGATIVE) Urine Blood (0-5) Luis/ul Urine Nitrite (NEGATIVE) Urine Bilirubin (NEGATIVE) Urine Urobilinogen (0-1) mg/dL Ur Leukocyte Esterase (NEGATIVE) Urine WBC (Auto) (0-5) /HPF Urine RBC (Auto) (0-2) /HPF U Epithel Cells (Auto) (FEW) /HPF Urine Bacteria (Auto) (NEGATIVE) /HPF Urine Mucus (Auto) (NEGATIVE) /HPF Urine Culture Reflexed (NO) Urine Glucose (NEGATIVE) mg/dL Influenza Type A Ag NEGATIVE (NEGATIVE) Influenza Type B Ag NEGATIVE (NEGATIVE) RSV (PCR) NEGATIVE (Negative) 05/29/19 05/29/19 05/29/19 Range/Units 13:36 16:27 Unknown WBC (4.0-10.5) K/mm3 RBC (4.1-5.4) M/mm3 Hgb (12.0-16.0) gm/dl Hct (35-47) % MCV (78-100) fl MCH (26-32) pg MCHC (32-36) g/dl RDW (11.5-14.0) % Plt Count (150-450) K/mm3 MPV (6-9.5) fl Gran % (36.0-66.0) % Eos # (Auto) (0-0.5) Absolute Lymphs (auto) (1.0-4.6) Absolute Monos (auto) (0.0-1.3) Lymphocytes % (24.0-44.0) % Monocytes % (0.0-12.0) % Eosinophils % (0.00-5.0) % Basophils % (0.0-0.4) % Absolute Granulocytes (1.4-6.9) Basophils # (0-0.4) PT (9.95-12.35) SECONDS INR (0.8-3.0) APTT (25.3-37.0) SECONDS pO2/FiO2 Ratio % VBG pH (7.32-7.42) VBG pCO2 at Pat Temp (42-55) mm/Hg VBG pO2 at Pat Temp (25-40) mm/Hg VBG HCO3 (22-28) meq/L VBG O2 Sat (Brooke) (95-100) VBG Base Excess (-2.0-2.0) VBG Hemoglobin VBG Carboxyhemoglobin (0.0-6.9) % T HGB POC Potassium (3.5-5.1) Sodium (137-145) mmol/L Potassium (3.5-5.1) mmol/L Chloride (98-107) mmol/L Carbon Dioxide (22-30) mmol/L Anion Gap (5-15) MEQ/L BUN (7-17) mg/dL Creatinine (0.52-1.04) mg/dL Estimated GFR ML/MIN Glucose (74-106) mg/dL Hemoglobin A1c (4.5-6.0) % Lactic Acid 1.2 (0.4-2.0) Calcium (8.4-10.2) mg/dL Magnesium (1.6-2.3) mg/dL Total Bilirubin (0.2-1.3) mg/dL AST (14-36) U/L ALT (0-35) U/L Alkaline Phosphatase (38-126) U/L Serum Total Protein (6.3-8.2) g/dL Albumin (3.5-5.0) g/dL Prealbumin 22.65 (17.6-36.0) mg/dL Amylase (30-110) U/L Lipase (23-300) U/L Urine Color YELLOW (YELLOW) Urine Appearance SLIGHTLY CLOUDY (CLEAR) Urine pH 5.0 (5-6) Ur Specific [place]ulah 1.019 (1.005-1.025) Urine Protein NEGATIVE (Negative) Urine Ketones NEGATIVE (NEGATIVE) Urine Blood NEGATIVE (0-5) Luis/ul Urine Nitrite NEGATIVE (NEGATIVE) Urine Bilirubin NEGATIVE (NEGATIVE) Urine Urobilinogen NEGATIVE (0-1) mg/dL Ur Leukocyte Esterase NEGATIVE (NEGATIVE) Urine WBC (Auto) 0-2 (0-5) /HPF Urine RBC (Auto) NONE (0-2) /HPF U Epithel Cells (Auto) RARE (FEW) /HPF Urine Bacteria (Auto) RARE (NEGATIVE) /HPF Urine Mucus (Auto) SLIGHT (NEGATIVE) /HPF Urine Culture Reflexed ORDERED SEPARATELY (NO) Urine Glucose NEGATIVE (NEGATIVE) mg/dL Influenza Type A Ag (NEGATIVE) Influenza Type B Ag (NEGATIVE) RSV (PCR) (Negative) 05/29/19 05/30/19 05/30/19 Range/Units Unknown 04:22 04:22 WBC 6.8 (4.0-10.5) K/mm3 RBC 3.36 L (4.1-5.4) M/mm3 Hgb 10.7 L (12.0-16.0) gm/dl Hct 33.6 L (35-47) % MCV 100.0 (78-100) fl MCH 31.8 (26-32) pg MCHC 31.8 L (32-36) g/dl RDW 15.9 H (11.5-14.0) % Plt Count 228 (150-450) K/mm3 MPV 10.6 H (6-9.5) fl Gran % 67.3 H (36.0-66.0) % Eos # (Auto) 0.16 (0-0.5) Absolute Lymphs (auto) 1.53 (1.0-4.6) Absolute Monos (auto) 0.53 (0.0-1.3) Lymphocytes % 22.5 L (24.0-44.0) % Monocytes % 7.8 (0.0-12.0) % Eosinophils % 2.3 (0.00-5.0) % Basophils % 0.1 (0.0-0.4) % Absolute Granulocytes 4.58 (1.4-6.9) Basophils # 0.01 (0-0.4) PT (9.95-12.35) SECONDS INR (0.8-3.0) APTT (25.3-37.0) SECONDS pO2/FiO2 Ratio % VBG pH (7.32-7.42) VBG pCO2 at Pat Temp (42-55) mm/Hg VBG pO2 at Pat Temp (25-40) mm/Hg VBG HCO3 (22-28) meq/L VBG O2 Sat (Brooke) (95-100) VBG Base Excess (-2.0-2.0) VBG Hemoglobin VBG Carboxyhemoglobin (0.0-6.9) % T HGB POC Potassium (3.5-5.1) Sodium (137-145) mmol/L Potassium (3.5-5.1) mmol/L Chloride (98-107) mmol/L Carbon Dioxide (22-30) mmol/L Anion Gap (5-15) MEQ/L BUN (7-17) mg/dL Creatinine (0.52-1.04) mg/dL Estimated GFR ML/MIN Glucose (74-106) mg/dL Hemoglobin A1c 6.21 H (4.5-6.0) % Lactic Acid (0.4-2.0) Calcium (8.4-10.2) mg/dL Magnesium 1.7 (1.6-2.3) mg/dL Total Bilirubin (0.2-1.3) mg/dL AST (14-36) U/L ALT (0-35) U/L Alkaline Phosphatase (38-126) U/L Serum Total Protein (6.3-8.2) g/dL Albumin (3.5-5.0) g/dL Prealbumin (17.6-36.0) mg/dL Amylase (30-110) U/L Lipase (23-300) U/L Urine Color (YELLOW) Urine Appearance (CLEAR) Urine pH (5-6) Ur Specific [place] (1.005-1.025) Urine Protein (Negative) Urine Ketones (NEGATIVE) Urine Blood (0-5) Luis/ul Urine Nitrite (NEGATIVE) Urine Bilirubin (NEGATIVE) Urine Urobilinogen (0-1) mg/dL Ur Leukocyte Esterase (NEGATIVE) Urine WBC (Auto) (0-5) /HPF Urine RBC (Auto) (0-2) /HPF U Epithel Cells (Auto) (FEW) /HPF Urine Bacteria (Auto) (NEGATIVE) /HPF Urine Mucus (Auto) (NEGATIVE) /HPF Urine Culture Reflexed (NO) Urine Glucose (NEGATIVE) mg/dL Influenza Type A Ag (NEGATIVE) Influenza Type B Ag (NEGATIVE) RSV (PCR) (Negative) 05/30/19 Range/Units 05:30 WBC (4.0-10.5) K/mm3 RBC (4.1-5.4) M/mm3 Hgb (12.0-16.0) gm/dl Hct (35-47) % MCV (78-100) fl MCH (26-32) pg MCHC (32-36) g/dl RDW (11.5-14.0) % Plt Count (150-450) K/mm3 MPV (6-9.5) fl Gran % (36.0-66.0) % Eos # (Auto) (0-0.5) Absolute Lymphs (auto) (1.0-4.6) Absolute Monos (auto) (0.0-1.3) Lymphocytes % (24.0-44.0) % Monocytes % (0.0-12.0) % Eosinophils % (0.00-5.0) % Basophils % (0.0-0.4) % Absolute Granulocytes (1.4-6.9) Basophils # (0-0.4) PT (9.95-12.35) SECONDS INR (0.8-3.0) APTT (25.3-37.0) SECONDS pO2/FiO2 Ratio % VBG pH (7.32-7.42) VBG pCO2 at Pat Temp (42-55) mm/Hg VBG pO2 at Pat Temp (25-40) mm/Hg VBG HCO3 (22-28) meq/L VBG O2 Sat (Brooke) (95-100) VBG Base Excess (-2.0-2.0) VBG Hemoglobin VBG Carboxyhemoglobin (0.0-6.9) % T HGB POC Potassium (3.5-5.1) Sodium 142 (137-145) mmol/L Potassium 3.9 (3.5-5.1) mmol/L Chloride 112 H (98-107) mmol/L Carbon Dioxide 25 (22-30) mmol/L Anion Gap 8.6 (5-15) MEQ/L BUN 13 (7-17) mg/dL Creatinine 0.98 (0.52-1.04) mg/dL Estimated GFR 58.3 ML/MIN Glucose 137 H (74-106) mg/dL Hemoglobin A1c (4.5-6.0) % Lactic Acid (0.4-2.0) Calcium 8.4 (8.4-10.2) mg/dL Magnesium (1.6-2.3) mg/dL Total Bilirubin (0.2-1.3) mg/dL AST (14-36) U/L ALT (0-35) U/L Alkaline Phosphatase (38-126) U/L Serum Total Protein (6.3-8.2) g/dL Albumin (3.5-5.0) g/dL Prealbumin (17.6-36.0) mg/dL Amylase (30-110) U/L Lipase (23-300) U/L Urine Color (YELLOW) Urine Appearance (CLEAR) Urine pH (5-6) Ur Specific [place] (1.005-1.025) Urine Protein (Negative) Urine Ketones (NEGATIVE) Urine Blood (0-5) Luis/ul Urine Nitrite (NEGATIVE) Urine Bilirubin (NEGATIVE) Urine Urobilinogen (0-1) mg/dL Ur Leukocyte Esterase (NEGATIVE) Urine WBC (Auto) (0-5) /HPF Urine RBC (Auto) (0-2) /HPF U Epithel Cells (Auto) (FEW) /HPF Urine Bacteria (Auto) (NEGATIVE) /HPF Urine Mucus (Auto) (NEGATIVE) /HPF Urine Culture Reflexed (NO) Urine Glucose (NEGATIVE) mg/dL Influenza Type A Ag (NEGATIVE) Influenza Type B Ag (NEGATIVE) RSV (PCR) (Negative) Accuchecks Date 05/29/19 Time 22:00 Accucheck Value: 137 Accucheck Value: 142 - Radiology Impressions Radiology Exams & Impressions: Radiology Procedures Category Date Time Status CHEST 1 VIEW (PORTABLE) Stat Exams 05/29/19 13:12 Completed - Other Procedures and Tests Respiratory Therapy 05/29/19 21:26 EKG ONCE 05/29/19 21:28 Peak Expiratory Flow Rate ONCE Respiratory Therapy Assessment DAILY Assessment/Plan (1) Pneumonia Current Visit: Yes Status: Acute Qualifiers: Pneumonia type: due to unspecified organism Laterality: unspecified laterality Lung location: unspecified part of lung Qualified Code(s): J18.9 - Pneumonia, unspecified organism Assessment & Plan: clinically. Was already partially treated on admission, but failed outpatient. On day #2 rocephin and zithromax. Code(s): J18.9 - PNEUMONIA, UNSPECIFIED ORGANISM (2) Hypomagnesemia Current Visit: Yes Status: Resolved Assessment & Plan: I increased her home Mg from once to twice daily. Code(s): E83.42 - HYPOMAGNESEMIA (3) Lactic acidosis Current Visit: Yes Status: Resolved Code(s): E87.2 - ACIDOSIS (4) Anxiety Current Visit: No Status: Chronic Assessment & Plan: Will give some ativan while here. She is on fluoxetine 20mg daily; increase to 40mg/d. Code(s): F41.9 - ANXIETY DISORDER, UNSPECIFIED (5) Diabetes mellitus Current Visit: No Status: Chronic Qualifiers: Diabetes mellitus type: type 2 Diabetes mellitus rn long term care insulin use: without snf use Diabetes mellitus complication status: with kidney complications Diabetes mellitus complication detail: with chronic kidney disease Chronic kidney disease stage: stage 2 (mild) Qualified Code(s): E11.22 - Type 2 diabetes mellitus with diabetic chronic kidney disease; N18.2 - Chronic kidney disease, stage 2 (mild); N18.2 - Chronic kidney disease, stage 2 (mild) Code(s): E11.9 - TYPE 2 DIABETES MELLITUS WITHOUT COMPLICATIONS (6) HTN (hypertension) Current Visit: No Status: Chronic Qualifiers: Hypertension type: essential hypertension Qualified Code(s): I10 - Essential (primary) hypertension Code(s): I10 - ESSENTIAL (PRIMARY) HYPERTENSION
[2019-05-30] MEDS: Prozac 20 MG PO SCH (09:35)
[2019-05-30] MEDS: Lotensin 10 MG PO SCH (09:35)
[2019-05-30] MEDS: BUSPAR 5 MG PO SCH ×3 (09:35→20:12)
[2019-05-30] MEDS: ENOXAPARIN SODIUM SQ SCH (09:36)
[2019-05-30] MEDS: NORVASC 5 MG PO SCH (09:36)
[2019-05-30] MEDS: MAG-OX 400 PO SCH ×2 (09:36→20:15)
[2019-05-30] MEDS: ROCEPHIN 1 Gm-D5w 50 ml Bag** 1 G/50 ML IVPB IV SCH (09:36)
[2019-05-30] MEDS: Pepcid 20 MG PO SCH ×2 (09:36→20:14)
[2019-05-30] MEDS: Protonix 40MG Tablet PO SCH (09:36)
[2019-05-30] MEDS: NEURONTIN 300 MG PO SCH ×5 (09:36→20:14)
[2019-05-30] MEDS ORDERED: ZOCOR 20MG PO SCH (10:00)
[2019-05-30] MEDS ORDERED: Prozac 20 MG PO SCH (10:00)
[2019-05-30] MEDS: Mirapex 0.5 MG Tablet PO SCH (20:12)
[2019-05-30] MEDS ORDERED: Zithromax 500 MG/ 250 ML NaCl Premix 500 MG/250 ML IVPB IV SCH (22:00)
[2019-05-31] MEDS: DUONEB 0.5-3 MG/3 ml Neb IH SCH ×3 (01:06→13:07)
[2019-05-31 07:19] VITALS: O2SAT 94
[2019-05-31] MEDS: ROCEPHIN 1 Gm-D5w 50 ml Bag** 1 G/50 ML IVPB IV SCH (09:29)
[2019-05-31] MEDS: NORVASC 5 MG PO SCH (09:31)
[2019-05-31] MEDS: ENOXAPARIN SODIUM SQ SCH (09:31)
[2019-05-31] MEDS: Lotensin 10 MG PO SCH (09:31)
[2019-05-31] MEDS: MAG-OX 400 PO SCH (09:31)
[2019-05-31] MEDS: Prozac 20 MG PO SCH (09:31)
[2019-05-31] MEDS: BUSPAR 5 MG PO SCH (09:31)
[2019-05-31] MEDS: Protonix 40MG Tablet PO SCH (09:32)
[2019-05-31] MEDS: NEURONTIN 300 MG PO SCH ×2 (09:32→12:50)
[2019-05-31] MEDS: Pepcid 20 MG PO SCH (09:32)
[2019-05-31] MEDS: PERCOCET TABLET 5/325MG PO PRN (10:51)
[2019-05-31 11:55] VITALS: BP 144/65
[2019-05-31 13:11] VITALS: PULSE 87
--- NOTE | 2019-05-31 14:02 | PCM.DS ---
Discharge Summary Date of Admission: 05/29/19 15:26 Admitting Physician: MARKY MARTINEZ Primary Care Provider: MARKY MARTINEZ Allergies Allergies alprazolam [From Xanax] Adverse Reaction (Unknown, Verified 05/29/19 13:11) morphine Adverse Reaction (Verified 05/29/19 13:11) promethazine HCl [From Phenergan] Adverse Reaction (Verified 05/29/19 13:11) Hospital Summary - Hospital Course Hospital Course: Patient presented to ER with cough and SOB that was getting progressively worse over the past few weeks .Clinical picture pneumonia but CXR was negative.She was dg COPD exacerbation and treated with hydration and IV Zithromax and Rocephin and Nebulizer Tx with duoneb . Patient has improved and is asking to go home. She is eating and up to bathroom without shortness of breath or coughing spells. Patient feels she is almost to her baseline . - Vitals & Intake/Output Vital Signs: Vital Signs Temperature 98.3 F 05/31/19 11:54 Pulse Rate 87 05/31/19 13:09 Respiratory Rate 18 05/31/19 13:09 Blood Pressure 144/65 05/31/19 11:54 O2 Sat by Pulse Oximetry 94 L 05/31/19 13:09 Intake & Output: Intake & Output 05/29/19 05/30/19 05/31/19 06/01/19 11:59 11:59 11:59 11:59 Intake Total 3289 4632 480 Output Total 1250 2050 300 Balance 2039 2582 180 Weight 111.8 kg 111.3 kg - Lab Result Diagrams: 05/30/19 04:22 05/30/19 05:30 Lab Results-Last 24 Hrs: Accuchecks Date 05/31/19 Date 05/31/19 Date 05/30/19 Time 11:30 Time 07:30 Time 21:30 Accucheck Value: 114 Accucheck Value: 109 Accucheck Value: 126 Accucheck Value: 161 Micro Results-Entire Visit: Microbiology 05/29/19 13:04 Blood Culture - Preliminary Blood NO GROWTH TO DATE 05/29/19 13:08 Blood Culture - Preliminary Blood NO GROWTH TO DATE 05/29/19 14:04 Urine Culture - Final Clean Catch Midstream MIXED PHU; 3 OR MORE TYPES. NO PREDOMINANT ORGANISM. NO FURTHER WORKUP. PLEASE RESUBMIT IF CLINICALLY INDICATED. Accuchecks Date 05/31/19 Date 05/31/19 Date 05/30/19 Time 11:30 Time 07:30 Time 21:30 Accucheck Value: 114 Accucheck Value: 109 Accucheck Value: 126 Accucheck Value: 161 - Radiology Exams Ordered Rad Exams-Entire Visit: Radiology Procedures Category Date Time Status CHEST 1 VIEW (PORTABLE) Stat Exams 05/29/19 13:12 Completed - Procedures and Test Procedures and Tests throughout Hospitalization: Therapy Orders & Screens 05/29/19 14:04 Respiratory Therapy Assessment ONCE Comment: Diagnosis: right breast cancer 05/29/19 15:38 EKG [id number] Comment: Diagnosis: right breast cancer 05/29/19 16:27 RT Screen per Nursing Assess ONCE Comment: Protocol Order Physician Instructions: Greater than 3 points order RT Admission Screen Reason For Exam: Triggered on Admission Diagnosis: copd exacerbation, hypomagnesia, lactic acidosis Diagnosis: copd exacerbation, hypomagnesia, lactic acidosis Pneumonia: No Home O2: Yes Asthma: No CHF: No Home CPAP/BIPAP: No Home Nebs/MDI: Yes Total Points: 10 05/29/19 21:26 EKG ONCE Comment: Diagnosis: copd exacerbation, hypomagnesia, lactic acidosis 05/29/19 21:28 Peak Expiratory Flow Rate ONCE Comment: Reason For Exam: Diagnosis: copd exacerbation, hypomagnesia, lactic acidosis Respiratory Therapy Assessment DAILY Comment: Diagnosis: copd exacerbation, hypomagnesia, lactic acidosis Discharge Exam Neurologic Exam: alert, oriented x 3, cooperative Ears, Nose, Throat Exam: normal ENT inspection, other (hard of hearing) Neck Exam: normal inspection Respiratory Exam: other (no dyspnea, mild eew right mid lung that cleared with deep breath and cough.) Cardiovascular Exam: other (heart sounds distant RRR) Gastrointestinal/Abdomen Exam: soft (nontender,colostomy bag in place) Extremity Exam: pedal edema Final Diagnosis/Problem List - Final Discharge Diagnosis/Problem (1) COPD exacerbation Current Visit: Yes Status: Resolved Code(s): J44.1 - CHRONIC OBSTRUCTIVE PULMONARY DISEASE W (ACUTE) EXACERBATION (2) Pneumonia Current Visit: Yes Status: Acute Code(s): J18.9 - PNEUMONIA, UNSPECIFIED ORGANISM (3) Lactic acidosis Current Visit: Yes Status: Resolved Code(s): E87.2 - ACIDOSIS (4) Hypomagnesemia Current Visit: Yes Status: Chronic Code(s): E83.42 - HYPOMAGNESEMIA - Discharge Disposition: Home, Self-Care Condition: Good Prescriptions: New Azithromycin 250 mg [Zithromax 250 MG TABLET] 250 mg PO ZPACK #6 tablet Continue Omeprazole 20 mg PO DAILY Benazepril HCl 20 mg PO DAILY Amlodipine Besylate 5 mg [Norvasc 5 mg] 5 mg PO QAM #30 tablet Hydroxyzine HCl 25 mg [Atarax 25 mg] 25 mg PO TID PRN #10 tablet Pramipexole Di-HCl [Pramipexole Dihydrochloride] 0.25 mg PO HS Oxycodone/APAP 5 mg/325 mg [Percocet Tablet 5/325Mg] 5 mg PO QID PRN PRN PRN Reason: Pain Albuterol/Ipratropium 3ml Neb* [DUONEB 0.5-3 MG/3 ml Neb] 3 ml IH Q4HRT PRN #50 ampul.neb PRN Reason: Shortness Of Breath Magnesium Oxide [Magnesium] 400 mg PO DAILY #30 tablet Gabapentin 300 mg PO QID Simvastatin 20Mg [Zocor 20Mg] 20 mg PO DAILY Fluoxetine HCl 20 mg [Prozac 20 MG] 20 mg PO DAILY Amoxicillin/Potassium Clav [Amox Tr-K Clv 875-125 mg Tab] 1 each PO BID Instructions: Exacerbation of COPD (DC), Low Magnesium Level (DC) Follow up with: MARKY MARTINEZ [Primary Care Provider] - 06/08/19 10:45 am Forms: Discharge Instructions
--- NOTE | 2019-05-31 14:07 | PCM.DCORD ---
- Discharge Disposition: Home, Self-Care Condition: Good Prescriptions: New Azithromycin 250 mg [Zithromax 250 MG TABLET] 250 mg PO ZPACK #6 tablet Continue Omeprazole 20 mg PO DAILY Benazepril HCl 20 mg PO DAILY Amlodipine Besylate 5 mg [Norvasc 5 mg] 5 mg PO QAM #30 tablet Hydroxyzine HCl 25 mg [Atarax 25 mg] 25 mg PO TID PRN #10 tablet Pramipexole Di-HCl [Pramipexole Dihydrochloride] 0.25 mg PO HS Oxycodone/APAP 5 mg/325 mg [Percocet Tablet 5/325Mg] 5 mg PO QID PRN PRN PRN Reason: Pain Albuterol/Ipratropium 3ml Neb* [DUONEB 0.5-3 MG/3 ml Neb] 3 ml IH Q4HRT PRN #50 ampul.neb PRN Reason: Shortness Of Breath Magnesium Oxide [Magnesium] 400 mg PO DAILY #30 tablet Gabapentin 300 mg PO QID Simvastatin 20Mg [Zocor 20Mg] 20 mg PO DAILY Fluoxetine HCl 20 mg [Prozac 20 MG] 20 mg PO DAILY Amoxicillin/Potassium Clav [Amox Tr-K Clv 875-125 mg Tab] 1 each PO BID Instructions: Exacerbation of COPD (DC), Low Magnesium Level (DC) Follow up with: MARKY MARTINEZ [Primary Care Provider] - 06/08/19 10:45 am Forms: Discharge Instructions
== END 2019-05-31 14:35 | disposition home or self-care (01) ==
LOC: ED 12:35 → MED SURG 15:26
PROVIDERS: ADMIT Family Medicine; ATTEND Family Medicine
DX: J44.1 Chronic obstructive pulmonary disease with (acute) exacerbation (principal); J18.9 Pneumonia, unspecified organism; E87.2 Acidosis; E11.9 Type 2 diabetes mellitus without complications; E83.42 Hypomagnesemia; I10 Essential (primary) hypertension; Z93.3 Colostomy status; E78.5 Hyperlipidemia, unspecified; F41.9 Anxiety disorder, unspecified; Z85.038 Personal history of other malignant neoplasm of large intestine; Z79.899 Other long term (current) drug therapy
CPT/HCPCS: 36000; 36415; 71045; 80048; 80053; 81001; 82150; 82805; 82962; 83036; 83605; 83690; 83735; 84134; 85025; 85610; 85730; 87040; 87086; 87631; 93005; 93041; 93268; 94150; 94640; 94760; 96360; 96365; 99285; J0456; J0696; J1650; J3475; A9270-GY; G0378

== ENCOUNTER 2019-06-14 08:30 | Day surgery (SDC) | payer MEDICARE ==
[2019-06-14] MEDS ORDERED: Marcaine 0.5% SDV 10 ML IJ ONE (08:31)
[2019-06-14] MEDS ORDERED: Ketamine HCl 50 MG/ML ONE (09:49)
[2019-06-14] MEDS ORDERED: DIPRIVAN 200 MG/20 ML IV ONE (09:49)
--- NOTE | 2019-06-14 11:06 | XRAY ---
Indication: Left genicular nerve block. Intraoperative fluoroscopy was provided for 11 seconds. 2 digital spot images submitted for interpretation demonstrates anterior needle tips projecting over the medial/lateral supra condyle and medial tibial plateau of the left knee. Correlate with intraoperative findings/report.
--- NOTE | 2019-06-14 11:06 | XRAY ---
11 seconds fluoroscopy time in surgery for left genicular nerve block.
--- NOTE | 2019-06-14 11:06 | XRAY ---
5 seconds fluoroscopy time in surgery for right genicular nerve block.
--- NOTE | 2019-06-14 11:16 | XRAY ---
Indication: Right genicular nerve block. Intraoperative fluoroscopy was provided for 5 seconds. 2 digital spot images submitted for interpretation demonstrates anterior needle tips projecting over the medial/lateral supra condyle and medial tibial plateau of the right knee. Correlate with intraoperative findings/report.
[2019-06-14] MEDS ORDERED: Lactated Ringers 1,000 ML IV ONE (16:00)
== END 2019-06-14 10:17 | disposition home or self-care (01) ==
LOC: SDC-PAIN 08:30
PROVIDERS: ATTEND Psychiatry & Neurology Pain Medicine
DX: M17.0 Bilateral primary osteoarthritis of knee (principal); E11.9 Type 2 diabetes mellitus without complications; E78.5 Hyperlipidemia, unspecified; K21.9 Gastro-esophageal reflux disease without esophagitis; M79.7 Fibromyalgia; G62.9 Polyneuropathy, unspecified; M06.9 Rheumatoid arthritis, unspecified; Z79.899 Other long term (current) drug therapy
CPT/HCPCS: 64450; 73560; 77002; 82962; J2704

== ENCOUNTER 2019-09-07 13:43 | Observation (INO) | payer MEDICARE ==
[2019-09-07] MEDS: Magnesium Sulfate 1 GM/2 ML VIAL*** 2 GM in Sodium Chloride 0.9% 100 ML IVPB 100 ML IV SCH ×2 (16:37→18:40)
[2019-09-07] MEDS ORDERED: DUONEB 0.5-3 MG/3 ml Neb IH PRN (18:29)
[2019-09-07] MEDS ORDERED: HUMALOG SQ PRN (19:01)
[2019-09-07] MEDS ORDERED: ATARAX 25 MG PO PRN (19:24)
[2019-09-07] MEDS: Klor Con 10 MEQ PO SCH (20:48)
[2019-09-07] MEDS: BUSPAR 5 MG PO SCH (20:49)
[2019-09-07] MEDS: PERCOCET TABLET 5/325MG PO PRN (21:04)
[2019-09-07] MEDS ORDERED: Voltaren GEL TOP SCH (22:00)
[2019-09-07] MEDS ORDERED: NEURONTIN 300 MG PO SCH (22:00)
[2019-09-07] MEDS ORDERED: Mirapex 0.5 MG Tablet PO SCH (22:00)
[2019-09-07] MEDS ORDERED: ZOCOR 20MG PO SCH (22:00)
[2019-09-08 05:49] LABS: ANION GAP 9.8 MEQ/L (5-15); BLOOD UREA NITROGEN 18 mg/dL (7-17); CHLORIDE 109 mmol/L (98-107); Carbon Dioxide 24 mmol/L (22-30); Creatinine 1 0.93 mg/dL (0.52-1.04); Glucose 158 mg/dL (74-106); MAGNESIUM 2.1 mg/dL (1.6-2.3); SODIUM 139 mmol/L (137-145)
[2019-09-08 05:53] LABS: Potassium 4.4 mmol/L (3.5-5.1)
[2019-09-08] MEDS ORDERED: Spiriva 18 Mcg/Cap Inhaler IH SCH (07:00)
[2019-09-08] MEDS ORDERED: LASIX 20 MG PO PRN (07:08)
[2019-09-08 07:27] VITALS: BP 129/60; PULSE 92; O2SAT 93
--- NOTE | 2019-09-08 08:50 | PCM.HP.ADD ---
Addendum to History & Physical - History & Physical Addendum Addendum to History & Physical: This certifies that the History & Physical in the electronic chart reflects the current health status of the patient. If there are changes in the H&P these changes/exceptions are listed as follows. Pt found to have Mg of 1.0 and sent to [facility] for repletion.
--- NOTE | 2019-09-08 08:55 | PCM.DS ---
Discharge Summary Date of Admission: 09/07/19 13:54 Admitting Physician: MARKY MARTINEZ Primary Care Provider: MARKY MARTINEZ Allergies Allergies alprazolam [From Xanax] Adverse Reaction (Unknown, Verified 05/29/19 13:11) morphine Adverse Reaction (Verified 05/29/19 13:11) promethazine HCl [From Phenergan] Adverse Reaction (Verified 05/29/19 13:11) Hospital Summary - Hospital Course Hospital Course: Pt is a 78 yo female pt of mine from [facility] with PMHx renal insufficiency, HTN, DM , depression, with colostomy, who was admitted directly after she was found to have a Mg of 1.0. She was given 2g IV MGSO4 x 2 and this morning her Mg was 2.1. She will be started on Mg Ox 400mg 1 po BID at home and rechecked in 1 week. She was in the office yesterday for LE edema and insomnia. She states this morning that she's feeling much better than she did yesterday, although she didn 't particularly complain of feeling ill yesterday. Pt to be discharged to home today. - Vitals & Intake/Output Vital Signs: Vital Signs Temperature 98.3 F 09/08/19 07:27 Pulse Rate 92 H 09/08/19 07:33 Respiratory Rate 22 09/08/19 07:33 Blood Pressure 129/60 09/08/19 07:27 O2 Sat by Pulse Oximetry 93 L 09/08/19 07:33 Intake & Output: Intake & Output 09/05/19 09/06/19 09/07/19 09/08/19 11:59 11:59 11:59 11:59 Intake Total 840 Output Total 950 Balance -110 Weight 121.2 kg - Lab Result Diagrams: 09/08/19 04:40 Lab Results-Last 24 Hrs: Lab Results-Last 24 Hours 09/07/19 09/07/19 09/08/19 Range/Units 15:00 22:40 04:40 Sodium 139 (137-145) mmol/L Potassium 4.4 (3.5-5.1) mmol/L Chloride 109 H (98-107) mmol/L Carbon Dioxide 24 (22-30) mmol/L Anion Gap 9.8 (5-15) MEQ/L BUN 18 H (7-17) mg/dL Creatinine 0.93 (0.52-1.04) mg/dL Estimated GFR > 60.0 ML/MIN Glucose 158 H (74-106) mg/dL Calcium 8.0 L (8.4-10.2) mg/dL Magnesium 1.0 L* 2.2 2.1 (1.6-2.3) mg/dL - Procedures and Test Procedures and Tests throughout Hospitalization: Therapy Orders & Screens 09/07/19 14:30 EKG ROUTINE Comment: Diagnosis: hypomagnesemia 09/07/19 15:56 RT Screen per Nursing Assess ONCE Comment: Protocol Order Physician Instructions: Greater than 3 points order RT Admission Screen Reason For Exam: Triggered on Admission Diagnosis: hypomagnesemia Diagnosis: hypomagnesemia Pneumonia: No Home O2: Yes Asthma: Yes CHF: Yes Home CPAP/BIPAP: No Home Nebs/MDI: Yes Total Points: 17 09/07/19 18:31 Respiratory Therapy Assessment DAILY Comment: Diagnosis: hypomagnesemia Discharge Exam General Appearance: no apparent distress, alert Neurologic Exam: cooperative, other (very hard of hearing) Eye Exam: eyes nml inspection Ears, Nose, Throat Exam: moist mucous membranes Neck Exam: normal inspection Respiratory Exam: normal breath sounds, lungs clear, No crackles/rales, No rhonchi, No wheezing Cardiovascular Exam: regular rate/rhythm, normal heart sounds, No murmur Gastrointestinal/Abdomen Exam: soft, normal bowel sounds, No tenderness Extremity Exam: No pedal edema, No swelling Skin Exam: normal color, warm, dry, No rash Final Diagnosis/Problem List - Final Discharge Diagnosis/Problem (1) Hypomagnesemia Current Visit: No Status: Chronic Assessment & Plan: Mg repleted, pt doing well, home on MagOx 400mg po BID. rehceck BMP and Mg in 1 week. 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 Visit: No Status: Chronic Code(s): Z93.3 - COLOSTOMY STATUS (3) Diabetes mellitus Current Visit: No Status: Chronic Code(s): E11.9 - TYPE 2 DIABETES MELLITUS WITHOUT COMPLICATIONS (4) HTN (hypertension) Current Visit: No Status: Chronic Code(s): I10 - ESSENTIAL (PRIMARY) HYPERTENSION (5) Renal insufficiency Current Visit: No Status: Chronic - Discharge Disposition: Home, Self-Care Condition: Good Prescriptions: New Magnesium Oxide 400 mg [Mag-Ox 400] 400 mg PO BID #60 tablet Continue Omeprazole 20 mg PO DAILY Benazepril HCl 20 mg PO DAILY Amlodipine Besylate 5 mg [Norvasc 5 mg] 5 mg PO QAM #30 tablet Hydroxyzine HCl 25 mg [Atarax 25 mg] 25 mg PO TID PRN #10 tablet Pramipexole Di-HCl [Pramipexole Dihydrochloride] 0.25 mg PO HS Oxycodone/APAP 5 mg/325 mg [Percocet Tablet 5/325Mg] 5 mg PO QID PRN PRN PRN Reason: Pain Albuterol/Ipratropium 3ml Neb* [DUONEB 0.5-3 MG/3 ml Neb] 3 ml IH Q4HRT PRN #50 ampul.neb PRN Reason: Shortness Of Breath Gabapentin 300 mg PO QAM Simvastatin 20Mg [Zocor 20Mg] 20 mg PO DAILY Fluoxetine HCl 20 mg [Prozac 20 MG] 20 mg PO DAILY Tiotropium [place] Inhaler [Spiriva 18 Mcg/Cap Inhaler] 1 puff IH DAILY raNITIdine HCl [Zantac] 150 mg PO DAILY Potassium Chloride 10 meq PO BID Furosemide 40 mg [Lasix 40 MG] 40 mg PO DAILY Furosemide 20 mg [Lasix 20 mg] 20 mg PO DAILY PRN PRN PRN Reason: swelling Diclofenac Sodium Gel [Voltaren GEL] 2 gm TOP QID Buspirone HCl 7.5 mg PO BID Follow up with: MARKY MARTINEZ [Primary Care Provider] - 1 Week
[2019-09-08] MEDS ORDERED: NON-FORMULARY ITEM (Ranitidine Hcl [Zantac] 150 MG) PO SCH (10:00)
[2019-09-08] MEDS ORDERED: NORVASC 5 MG PO SCH (10:00)
[2019-09-08] MEDS ORDERED: Lotensin 10 MG PO SCH (10:00)
[2019-09-08] MEDS ORDERED: NEURONTIN 300 MG PO SCH (10:00)
[2019-09-08] MEDS ORDERED: Lasix 40 MG PO SCH (10:00)
[2019-09-08] MEDS ORDERED: Prozac 20 MG PO SCH (10:00)
[2019-09-08] MEDS ORDERED: Protonix 40MG Tablet PO SCH (10:00)
[2019-09-08] MEDS ORDERED: Pepcid 20 MG PO SCH (10:00)
[2019-09-08] MEDS: Klor Con 10 MEQ PO SCH (10:50)
[2019-09-08] MEDS: BUSPAR 5 MG PO SCH (10:50)
[2019-09-08] MEDS: PERCOCET TABLET 5/325MG PO PRN (10:57)
== END 2019-09-08 11:00 | disposition home or self-care (01) ==
LOC: MED SURG 13:54
PROVIDERS: ADMIT Family Medicine; ATTEND Family Medicine
DX: E83.42 Hypomagnesemia (principal); E11.9 Type 2 diabetes mellitus without complications; I10 Essential (primary) hypertension; N28.9 Disorder of kidney and ureter, unspecified; R60.0 Localized edema; G47.00 Insomnia, unspecified; Z79.899 Other long term (current) drug therapy; Z93.3 Colostomy status
CPT/HCPCS: 36415; 80048; 83735; 93005; 93268; 94760; 97161; G0378; J3475; A9270-GY

== ENCOUNTER 2019-10-08 15:39 | Emergency (ER) | payer MEDICARE ==
[2019-10-08 16:11] LABS: BASOPHIL % 0.4 % (0.0-0.4); Basophil (Absolute #) 0.03 (0-0.4); Eosinophil % 2.8 % (0.00-5.0); Eosinophil (Absolute #) 0.22 (0-0.5); Hematocrit 38.3 % (35-47); Hemoglobin 12.4 gm/dl (12.0-16.0); Lymphocyte (Absolute #) 1.46 (1.0-4.6); Lymphocytes % 18.7 % (24.0-44.0); Mean Corpuscular Hemoglobin 32.4 pg (26-32); Mean Corpuscular Hgb Concent. 32.4 g/dl (32-36); Mean Platelet Volume 10.8 fl (7.5-11.0); Monocyte (Absolute #) 0.39 (0.0-1.3); Neutrophil % 73.1 % (36.0-66.0); Platelet Count 291 K/mm3 (150-450); Red Blood Count 3.83 M/mm3 (4.1-5.4); Red Cell Distribution Width 14.8 % (11.5-14.0); White Blood Count 7.8 K/mm3 (4.0-10.5)
--- NOTE | 2019-10-08 16:14 | ERPHSYRPT ---
- History of Present Illness Time Seen by Provider: 10/08/19 15:52 Source: patient Exam Limitations: no limitations Patient Subjective Stated Complaint: cough and chills Triage Nursing Assessment: pt to ED c/o cough and chills since 0300 this am. denies NVD, SOB, abd pain. states felt feverish at home but unable to take temp.afebrile on arrival to ED. pt back to room via WC and self assist to bed. placed on 2L NC on arrival for effort of breathing and PRN use of home O2. pt sat 98% with 2L. lung sounds clear and equal bilaterally, heart sounds clear, bowel sounds active, A&Ox3. Physician History: For the past 13 hours pt has had cough productive of clear phlegm, chills and diaphoresis. Pt denies chest pain, shortness of air, nausea, vomiting, rash. Allergies/Adverse Reactions: alprazolam [From Xanax] Adverse Reaction (Unknown, Verified 10/08/19 15:59) morphine Adverse Reaction (Verified 10/08/19 15:59) promethazine HCl [From Phenergan] Adverse Reaction (Verified 10/08/19 15:59) Home Medications: Benazepril HCl 20 mg PO DAILY 07/10/17 [History] Omeprazole 20 mg PO DAILY 07/10/17 [History] Oxycodone/APAP 5 mg/325 mg [Percocet Tablet 5/325Mg] 5 mg PO QID PRN PRN [History] Pramipexole Di-HCl [Pramipexole Dihydrochloride] 0.25 mg PO HS 09/25/18 [History ] Fluoxetine HCl 20 mg [Prozac 20 MG] 20 mg PO DAILY 05/29/19 [History] Gabapentin 300 mg PO QAM 05/29/19 [History] Simvastatin 20Mg [Zocor 20Mg] 20 mg PO DAILY 05/29/19 [History] Buspirone HCl 7.5 mg PO BID 09/07/19 [History] Diclofenac Sodium Gel [Voltaren GEL] 2 gm TOP QID 09/07/19 [History] Furosemide 20 mg [Lasix 20 mg] 20 mg PO DAILY PRN PRN 09/07/19 [History] Furosemide 40 mg [Lasix 40 MG] 40 mg PO DAILY 09/07/19 [History] Potassium Chloride 10 meq PO BID 09/07/19 [History] Tiotropium [place] Inhaler [Spiriva 18 Mcg/Cap Inhaler] 1 puff IH DAILY [History] raNITIdine HCl [Zantac] 150 mg PO DAILY 09/07/19 [History] Hx Tetanus, Diphtheria Vaccination/Date Given: No Hx Influenza Vaccination/Date Given: Yes Hx Pneumococcal Vaccination/Date Given: Yes Travel Risk - International Travel Have you traveled outside of the country in past 3 weeks: No Have you or anyone close to you been diagnosed with or: No Do your reside in a community with a known COVID-19 case?: Yes If Yes where:: [place] - Coronavirus Screening Has patient experienced Coronavirus symptoms: Yes Symptoms experienced: respiratory symptoms (i.e.Cought,shortness of breath) - Review of Systems Constitutional: Chills, Other (diaphoresis today) Respiratory: Cough, No Dyspnea Cardiac: No Chest Pain Abdominal/Gastrointestinal: No Abdominal Pain, No Nausea, No Vomiting Genitourinary Symptoms: No Dysuria Neurological: No Headache All Other Systems: Reviewed and Negative - Past Medical History Pertinent Past Medical History: Yes Neurological History: No Pertinent History ENT History: Other Cardiac History: Angina, High Cholesterol, Hypertension Respiratory History: Asthma, CHF, COPD Endocrine Medical History: Diabetes Type II Musculoskeletal History: No Pertinent History, Other GI Medical History: GERD, Other History: No Pertinent History Psycho-Social History: No Pertinent History Female Reproductive Disorders: No Pertinent History Other Medical History: NEUROPOTHY, bowel obstruction, pt poor historian, zuni. COLON CA. colostomy - Past Surgical History Past Surgical History: Yes Neuro Surgical History: No Pertinent History Cardiac: No Pertinent History Respiratory: No Pertinent History Gastrointestinal: Appendectomy, Cholecystectomy, Colon Resection Genitourinary: No Pertinent History Musculoskeletal: No Pertinent History Female Surgical History: Hysterectomy Other Surgical History: eye surgery. OSTOMY PLACED DUE TO BOWEL OBSTRUCTION, pt poor historian - Social History Smoking Status: Former smoker Exposure to second hand smoke: No Drug Use: none Patient Lives Alone: No - Nursing Vital Signs Nursing Vital Signs: Initial Vital Signs Temperature 98.5 F 10/08/19 15:44 Pulse Rate 102 H 10/08/19 15:44 Respiratory Rate 22 10/08/19 15:44 Blood Pressure 158/82 10/08/19 15:44 O2 Sat by Pulse Oximetry 98 10/08/19 15:44 Pain Scale Pain Intensity 0 - Physical Exam General Appearance: alert Eye Exam: PERRL/EOMI Ears, Nose, Throat Exam: moist mucous membranes, TM abnormal (R) (erythematous) , TM abnormal (L) (erythematous), pharyngeal erythema (mild) Neck Exam: normal inspection Respiratory Exam: lungs clear Cardiovascular Exam: normal heart sounds Gastrointestinal/Abdomen Exam: soft, normal bowel sounds Extremity Exam: No pedal edema Neurologic Exam: alert, cooperative, other (H.O.H.) Skin Exam: warm, dry SpO2 Interpretation: normal SpO2: 98 O2 Delivery: Room Air - Course Nursing assessment & vital signs reviewed: Yes Ordered Tests: Active Orders 24 hr Category Date Time Status Isolation, Initiate & Maintain Q12H Care 10/08/19 15:58 Active CHEST 2 VIEWS (PA AND LAT) Stat Exams 10/08/19 15:55 Ordered CBC W DIFF Stat Lab 10/08/19 16:00 Completed CMP Stat Lab 10/08/19 16:00 Completed CULTURE,URINE Stat Lab 10/08/19 16:40 Received MAGNESIUM Stat Lab 10/08/19 16:00 Completed [place] Screen Stat Lab 10/08/19 16:00 Completed UA W/RFX UR CULTURE Stat Lab 10/08/19 16:40 Completed Medication Summary Generic Name Dose Route Start Last Admin Trade Name Freq PRN Reason Stop Dose Admin Magnesium Oxide 400 mg 10/09/19 10:00 10/08/19 16:41 Mag-Ox 400 PO 11/08/19 09:59 400 mg DAILY ANAIS Administration Discontinued Medications Generic Name Dose Route Start Last Admin Trade Name Freq PRN Reason Stop Dose Admin Magnesium Oxide Confirm 10/08/19 16:40 Mag-Ox 400 Administered 10/08/19 16:41 Dose 400 mg .ROUTE .STK-MED ONE Lab/Rad Data: Laboratory Result Diagrams 10/08/19 16:00 10/08/19 16:00 Laboratory Results 10/08/19 10/08/19 10/08/19 Range/Units 16:40 16:00 16:00 WBC (4.0-10.5) K/mm3 RBC (4.1-5.4) M/mm3 Hgb (12.0-16.0) gm/dl Hct (35-47) % MCV (78-100) fl MCH (26-32) pg MCHC (32-36) g/dl RDW (11.5-14.0) % Plt Count (150-450) K/mm3 MPV (7.5-11.0) fl Gran % (36.0-66.0) % Eos # (Auto) (0-0.5) Absolute Lymphs (auto) (1.0-4.6) Absolute Monos (auto) (0.0-1.3) Lymphocytes % (24.0-44.0) % Monocytes % (0.0-12.0) % Eosinophils % (0.00-5.0) % Basophils % (0.0-0.4) % Absolute Granulocytes (1.4-6.9) Basophils # (0-0.4) Sodium (137-145) mmol/L Potassium (3.5-5.1) mmol/L Chloride (98-107) mmol/L Carbon Dioxide (22-30) mmol/L Anion Gap (5-15) MEQ/L BUN (7-17) mg/dL Creatinine (0.52-1.04) mg/dL Estimated GFR ML/MIN Glucose (74-106) mg/dL Calcium (8.4-10.2) mg/dL Magnesium (1.6-2.3) mg/dL Total Bilirubin (0.2-1.3) mg/dL AST (14-36) U/L ALT (0-35) U/L Alkaline Phosphatase (38-126) U/L Serum Total Protein (6.3-8.2) g/dL Albumin (3.5-5.0) g/dL Urine Color YELLOW (YELLOW) Urine Appearance SLIGHTLY CLOUDY (CLEAR) Urine pH 5.0 (5-6) Ur Specific [place] 1.023 (1.005-1.025) Urine Protein 30 (Negative) Urine Ketones NEGATIVE (NEGATIVE) Urine Blood NEGATIVE (0-5) Luis/ul Urine Nitrite NEGATIVE (NEGATIVE) Urine Bilirubin NEGATIVE (NEGATIVE) Urine Urobilinogen NEGATIVE (0-1) mg/dL Ur Leukocyte Esterase NEGATIVE (NEGATIVE) Urine WBC (Auto) 3-5 (0-5) /HPF Urine RBC (Auto) NONE (0-2) /HPF U Epithel Cells (Auto) FEW (FEW) /HPF Urine Bacteria (Auto) RARE (NEGATIVE) /HPF Urine Mucus (Auto) SLIGHT (NEGATIVE) /HPF Urine Culture Reflexed YES (NO) Urine Glucose NEGATIVE (NEGATIVE) mg/dL Monoscreen NEGATIVE (Negative) Influenza Type A Ag NEGATIVE (NEGATIVE) Influenza Type B Ag NEGATIVE (NEGATIVE) RSV (PCR) NEGATIVE (Negative) Group A Strep Antibody NEGATIVE (NEGATIVE) 10/08/19 10/08/19 Range/Units 16:00 16:00 WBC 7.8 (4.0-10.5) K/mm3 RBC 3.83 L (4.1-5.4) M/mm3 Hgb 12.4 (12.0-16.0) gm/dl Hct 38.3 (35-47) % MCV 100.0 (78-100) fl MCH 32.4 H (26-32) pg MCHC 32.4 (32-36) g/dl RDW 14.8 H (11.5-14.0) % Plt Count 291 (150-450) K/mm3 MPV 10.8 (7.5-11.0) fl Gran % 73.1 H (36.0-66.0) % Eos # (Auto) 0.22 (0-0.5) Absolute Lymphs (auto) 1.46 (1.0-4.6) Absolute Monos (auto) 0.39 (0.0-1.3) Lymphocytes % 18.7 L (24.0-44.0) % Monocytes % 5.0 (0.0-12.0) % Eosinophils % 2.8 (0.00-5.0) % Basophils % 0.4 (0.0-0.4) % Absolute Granulocytes 5.70 (1.4-6.9) Basophils # 0.03 (0-0.4) Sodium 143 (137-145) mmol/L Potassium 4.2 (3.5-5.1) mmol/L Chloride 107 (98-107) mmol/L Carbon Dioxide 27 (22-30) mmol/L Anion Gap 13.3 (5-15) MEQ/L BUN 15 (7-17) mg/dL Creatinine 0.97 (0.52-1.04) mg/dL Estimated GFR 59.0 ML/MIN Glucose 171 H (74-106) mg/dL Calcium 9.2 (8.4-10.2) mg/dL Magnesium 1.1 L (1.6-2.3) mg/dL Total Bilirubin 0.60 (0.2-1.3) mg/dL AST 40 H (14-36) U/L ALT 22 (0-35) U/L Alkaline Phosphatase 111 (38-126) U/L Serum Total Protein 8.6 H (6.3-8.2) g/dL Albumin 4.0 (3.5-5.0) g/dL Urine Color (YELLOW) Urine Appearance (CLEAR) Urine pH (5-6) Ur Specific [place] (1.005-1.025) Urine Protein (Negative) Urine Ketones (NEGATIVE) Urine Blood (0-5) Luis/ul Urine Nitrite (NEGATIVE) Urine Bilirubin (NEGATIVE) Urine Urobilinogen (0-1) mg/dL Ur Leukocyte Esterase (NEGATIVE) Urine WBC (Auto) (0-5) /HPF Urine RBC (Auto) (0-2) /HPF U Epithel Cells (Auto) (FEW) /HPF Urine Bacteria (Auto) (NEGATIVE) /HPF Urine Mucus (Auto) (NEGATIVE) /HPF Urine Culture Reflexed (NO) Urine Glucose (NEGATIVE) mg/dL Monoscreen (Negative) Influenza Type A Ag (NEGATIVE) Influenza Type B Ag (NEGATIVE) RSV (PCR) (Negative) Group A Strep Antibody (NEGATIVE) - Progress Progress: unchanged Counseled pt/family regarding: lab results, rad results - Departure Departure Disposition: Home Clinical Impression: BOM (bilateral otitis media), Pharyngitis, Hypomagnesemia Condition: Stable Critical Care Time: No Referrals: MARKY MARTINEZ [Primary Care Provider] - Instructions: Cough, Adult (DC) Additional Instructions: Follow up with private doctor tomorrow. Prescriptions: Azithromycin 250 mg [Zithromax 250 MG TABLET] 250 mg PO ZPACK #6 tablet
[2019-10-08 16:31] LABS: ANION GAP 13.3 MEQ/L (5-15); BILIRUBIN,TOTAL 0.6 mg/dL (0.2-1.3); Calcium 9.2 mg/dL (8.4-10.2); Creatinine 1 0.97 mg/dL (0.52-1.04); Potassium 4.2 mmol/L (3.5-5.1); Total Protein 8.6 g/dL (6.3-8.2)
[2019-10-08 16:36] LABS: MAGNESIUM 1.1 mg/dL (1.6-2.3)
[2019-10-08] MEDS ORDERED: MAG-OX 400 ONE (16:40)
[2019-10-08 16:47] LABS: INFLUENZA A NEGATIVE (NEGATIVE); INFLUENZA B NEGATIVE (NEGATIVE); RESPIRATORY SYNCTIAL VIRUS NEGATIVE (Negative)
[2019-10-08 16:50] LABS: Appearance SLIGHTLY CLOUDY (CLEAR); Bacteria RARE /HPF (NEGATIVE); Bilirubin NEGATIVE (NEGATIVE); Blood NEGATIVE Ery/ul (0-5); Epithelial Cells FEW /HPF (FEW); Glucose NEGATIVE (NEGATIVE); Ketones NEGATIVE (NEGATIVE); Leukocyte Esterase NEGATIVE (NEGATIVE); Mucus SLIGHT /HPF (NEGATIVE); Nitrite NEGATIVE (NEGATIVE); Protein,Urine Dip 30 (Negative); Specific Gravity 1.023 (1.005-1.025); Urobilinogen NEGATIVE mg/dL (0-1)
[2019-10-08] MEDS ORDERED: Zithromax 250 MG TABLET PO ONE (17:06)
[2019-10-08] MEDS ORDERED: Robitussin-Dm Syrup PO ONE (17:07)
[2019-10-08] MEDS ORDERED: Zithromax 250 MG TABLET ONE (17:13)
[2019-10-08 17:22] VITALS: BP 124/82; PULSE 96; O2SAT 95
--- NOTE | 2019-10-08 20:54 | XRAY ---
Indication: Cough and short of breath. Comparison: None PA/lateral chest obtained. Lateral view limited by respiration artifact. No focal infiltrate, consolidation, or large effusion. Heart and mediastinal structures within normal limits. Bony thorax intact again with mild degenerative changes. Impression: Nonacute limited chest.
[2019-10-09] MEDS ORDERED: MAG-OX 400 PO SCH (10:00)
== END 2019-10-08 17:29 | disposition home or self-care (01) ==
LOC: ED 15:39
DX: H66.43 Suppurative otitis media, unspecified, bilateral (principal); J02.9 Acute pharyngitis, unspecified; E83.42 Hypomagnesemia; K21.9 Gastro-esophageal reflux disease without esophagitis; Z85.038 Personal history of other malignant neoplasm of large intestine; G62.9 Polyneuropathy, unspecified; I50.9 Heart failure, unspecified; Z90.49 Acquired absence of other specified parts of digestive tract; J44.9 Chronic obstructive pulmonary disease, unspecified; Z79.899 Other long term (current) drug therapy; I10 Essential (primary) hypertension; J45.909 Unspecified asthma, uncomplicated; E11.9 Type 2 diabetes mellitus without complications
CPT/HCPCS: 36415; 71046; 80053; 81001; 83735; 85025; 86308; 87086; 87631; 87651; 99284; A9270-GY

== ENCOUNTER 2019-11-27 15:57 | Emergency (ER) | payer MEDICARE ==
--- NOTE | 2019-11-27 16:34 | ERPHSYRPT ---
- History of Present Illness Time Seen by Provider: 11/27/19 16:17 Source: patient, other (Daughter) Exam Limitations: other (Hearing impaired/Poor historian) Patient Subjective Stated Complaint: Anxiety Triage Nursing Assessment: Patient brought back to ED via w/c and transferred to bed with assist of 1. Patient A+O X 3. Patient's skin pink, warm and dry. Patient tearful and states she has been having increased anxiety today. Patient states she has been thinking about her daughter that two years ago. Patient denies pain or discomfort. Patient states she hasn't been sleeping well at night. Physician History: 78 yo wf w 5 day h/o of anxiety over daughter dying 2 yrs ago. Pt has insomnia and is crying all the time. She denies chest pain/dyspnea/N/V/D/focal weakness/ melena/hematochezia/fever/dysuria/hematuria. Timing/Duration: other (5 days) Severity of Symptoms-Max: moderate Severity of Symptoms-Current: moderate Context related to: daughter Suicidal thoughts: other (No suicidal intentions) Associated Symptoms: anxiety, insomnia, No angry, No agitated, No confused, No depressed, No frustrated, No hostile, No hallucinating, No impaired concentration, No ingestion, No injury, No paranoid, No suicidal ideation Previous symptoms: no prior history Allergies/Adverse Reactions: alprazolam [From Xanax] Adverse Reaction (Unknown, Verified 11/27/19 16:03) morphine Adverse Reaction (Verified 11/27/19 16:03) promethazine HCl [From Phenergan] Adverse Reaction (Verified 11/27/19 16:03) Home Medications: Benazepril HCl 20 mg PO DAILY 07/10/17 [History] Omeprazole 20 mg PO DAILY 07/10/17 [History] Oxycodone/APAP 5 mg/325 mg [Percocet Tablet 5/325Mg] 5 mg PO QID PRN PRN [History] Pramipexole Di-HCl [Pramipexole Dihydrochloride] 0.25 mg PO HS 09/25/18 [History ] Fluoxetine HCl 20 mg [Prozac 20 MG] 20 mg PO DAILY 05/29/19 [History] Gabapentin 300 mg PO QAM 05/29/19 [History] Simvastatin 20Mg [Zocor 20Mg] 20 mg PO DAILY 05/29/19 [History] Buspirone HCl 7.5 mg PO BID 09/07/19 [History] Diclofenac Sodium Gel [Voltaren GEL] 2 gm TOP QID 09/07/19 [History] Furosemide 20 mg [Lasix 20 mg] 20 mg PO DAILY PRN PRN 09/07/19 [History] Furosemide 40 mg [Lasix 40 MG] 40 mg PO DAILY 09/07/19 [History] Potassium Chloride 10 meq PO BID 09/07/19 [History] Tiotropium [place] Inhaler [Spiriva 18 Mcg/Cap Inhaler] 1 puff IH DAILY [History] raNITIdine HCL [Zantac] 150 mg PO DAILY 09/07/19 [History] Hx Tetanus, Diphtheria Vaccination/Date Given: No Hx Influenza Vaccination/Date Given: Yes Hx Pneumococcal Vaccination/Date Given: Yes Immunizations Up to Date: Yes Travel Risk - International Travel Have you traveled outside of the country in past 3 weeks: No Have you or anyone close to you been diagnosed with or: No Do your reside in a community with a known COVID-19 case?: No If Yes where:: [facility] - Coronavirus Screening Has patient experienced Coronavirus symptoms: No - Past Medical History Pertinent Past Medical History: Yes Neurological History: No Pertinent History ENT History: Other Cardiac History: Angina, High Cholesterol, Hypertension Respiratory History: Asthma, CHF, COPD Endocrine Medical History: Diabetes Type II Musculoskeletal History: No Pertinent History, Other GI Medical History: GERD, Other History: No Pertinent History Psycho-Social History: No Pertinent History Female Reproductive Disorders: No Pertinent History Other Medical History: NEUROPOTHY, bowel obstruction, pt poor historian, [employer] [place]. COLON CA. colostomy - Past Surgical History Past Surgical History: Yes Neuro Surgical History: No Pertinent History Cardiac: No Pertinent History Respiratory: No Pertinent History Gastrointestinal: Appendectomy, Cholecystectomy, Colon Resection Genitourinary: No Pertinent History Musculoskeletal: No Pertinent History Female Surgical History: Hysterectomy Other Surgical History: eye surgery. OSTOMY PLACED DUE TO BOWEL OBSTRUCTION, pt poor historian - Social History Smoking Status: Former smoker Exposure to second hand smoke: No Drug Use: none Patient Lives Alone: No - Female History Hx Now: No - Review of Systems Constitutional: No Symptoms Eyes: No Symptoms Ears, Nose, & Throat: No Symptoms Respiratory: No Symptoms Cardiac: No Symptoms Abdominal/Gastrointestinal: No Symptoms Genitourinary Symptoms: No Symptoms Musculoskeletal: No Symptoms Skin: No Symptoms Neurological: No Symptoms Psychological: Anxiety, Depression, No Alcohol Abuse, No Drug Abuse, No Suicidal Ideations, No Homicidal Ideations, No Emotional Lability, No Hallucinations, No Memory Loss, No Mood Changes Endocrine: No Symptoms Hematologic/Lymphatic: No Symptoms Immunological/Allergic: No Symptoms - Nursing Vital Signs Nursing Vital Signs: Initial Vital Signs Temperature 98.0 F 11/27/19 16:04 Pulse Rate 106 H 11/27/19 16:04 Respiratory Rate 18 11/27/19 16:04 Blood Pressure 191/86 11/27/19 16:04 O2 Sat by Pulse Oximetry 96 11/27/19 16:04 Pain Scale Pain Intensity 0 - Physical Exam General Appearance: anxiety Eyes, Ears, Nose, Throat Exam: normal ENT inspection, TMs normal, pharynx normal , moist mucous membranes Neck Exam: normal inspection, non-tender, supple, full range of motion, No Brudzinski, No Kernig's Respiratory Exam: other (Rales bases B), No respiratory distress Cardiovascular Exam: regular rate/rhythm Gastrointestinal/Abdominal Exam: soft, normal bowel sounds, No tenderness, No distention Extremities Exam: edema (Mild B(chronic)) Peripheral Pulses: carotid (R): 2+, carotid (L): 2+ Current Suicidality: denies suicide plan Neurological Exam: alert, normal mood/affect, 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, responds to pain (Very anxious/Disoriented to time) Appearance: appropriate appearance, appropriate insight, denies illness Behavior/Eye Contact/Speech: alert & cooperative Thoughts/Hallucinations: normal thought pattern Skin Exam: normal color, warm, dry SpO2 Interpretation: normal SpO2: 96 O2 Delivery: Room Air - Course Nursing assessment & vital signs reviewed: Yes EKG Interpreted by Me: Sinus Rhythm (NSR/Poor R wave progression/Normal QT-QTc/) - Radiology Exams Chest X-ray Interpretation: Discussed w/ radiologist (Nothing acute) Ordered Tests: Active Orders 24 hr Category Date Time Status EKG-ER Only STAT Care 11/27/19 16:27 Active CHEST 1 VIEW (PORTABLE) Stat Exams 11/27/19 16:27 Completed Alcohol [ETHYL ALCOHOL] Stat Lab 11/27/19 16:45 Completed CBC W DIFF Stat Lab 11/27/19 16:45 Completed CMP Stat Lab 11/27/19 16:27 Completed TROPONIN Q3H Lab 11/27/19 16:45 Completed TROPONIN Q3H Lab 11/27/19 19:30 Ordered TROPONIN Q3H Lab 11/27/19 22:30 Ordered TROPONIN Q3H Lab 11/28/19 01:30 Ordered TROPONIN Q3H Lab 11/28/19 04:30 Ordered UA W/RFX UR CULTURE Stat Lab 11/27/19 16:45 Completed Urine Triage Profile Stat Lab 11/27/19 16:45 Completed Lab/Rad Data: Laboratory Result Diagrams 11/27/19 16:45 11/27/19 16:27 Laboratory Results 11/27/19 11/27/19 11/27/19 Range/Units 16:45 16:45 16:45 WBC (4.0-10.5) K/mm3 RBC (4.1-5.4) M/mm3 Hgb (12.0-16.0) gm/dl Hct (35-47) % MCV (78-100) fl MCH (26-32) pg MCHC (32-36) g/dl RDW (11.5-14.0) % Plt Count (150-450) K/mm3 MPV (7.5-11.0) fl Gran % (36.0-66.0) % Eos # (Auto) (0-0.5) Absolute Lymphs (auto) (1.0-4.6) Absolute Monos (auto) (0.0-1.3) Lymphocytes % (24.0-44.0) % Monocytes % (0.0-12.0) % Eosinophils % (0.00-5.0) % Basophils % (0.0-0.4) % Absolute Granulocytes (1.4-6.9) Basophils # (0-0.4) Sodium (137-145) mmol/L Potassium (3.5-5.1) mmol/L Chloride (98-107) mmol/L Carbon Dioxide (22-30) mmol/L Anion Gap (5-15) MEQ/L BUN (7-17) mg/dL Creatinine (0.52-1.04) mg/dL Estimated GFR ML/MIN Glucose (74-106) mg/dL Calcium (8.4-10.2) mg/dL Total Bilirubin (0.2-1.3) mg/dL AST (14-36) U/L ALT (0-35) U/L Alkaline Phosphatase (38-126) U/L Troponin I (0.000-0.034) ng/mL Serum Total Protein (6.3-8.2) g/dL Albumin (3.5-5.0) g/dL Urine Color STRAW (YELLOW) Urine Appearance CLEAR (CLEAR) Urine pH 7.0 (5-6) Ur Specific [place] 1.011 (1.005-1.025) Urine Protein NEGATIVE (Negative) Urine Ketones NEGATIVE (NEGATIVE) Urine Blood NEGATIVE (0-5) Luis/ul Urine Nitrite NEGATIVE (NEGATIVE) Urine Bilirubin NEGATIVE (NEGATIVE) Urine Urobilinogen NEGATIVE (0-1) mg/dL Ur Leukocyte Esterase NEGATIVE (NEGATIVE) Urine WBC (Auto) NONE (0-5) /HPF Urine RBC (Auto) NONE (0-2) /HPF U Epithel Cells (Auto) NONE (FEW) /HPF Urine Bacteria (Auto) NONE (NEGATIVE) /HPF Urine Mucus (Auto) SLIGHT (NEGATIVE) /HPF Urine Culture Reflexed NO (NO) Urine Glucose >=500 (NEGATIVE) mg/dL Urine Opiates Level NEGATIVE (NEGATIVE) Ur Methadone NEGATIVE (NEGATIVE) Urine Barbiturates NEGATIVE (NEGATIVE) Ur Phencyclidine (PCP) NEGATIVE (NEGATIVE) Urine Amphetamine NEGATIVE (NEGATIVE) U Benzodiazepine Level NEGATIVE (NEGATIVE) Urine Cocaine NEGATIVE (NEGATIVE) Urine Marijuana (THC) NEGATIVE (NEGATIVE) Ethyl Alcohol < 10 (0-10) mg/dL 11/27/19 11/27/19 11/27/19 Range/Units 16:45 16:45 16:27 WBC 10.2 (4.0-10.5) K/mm3 RBC 4.20 (4.1-5.4) M/mm3 Hgb 13.4 (12.0-16.0) gm/dl Hct 42.4 (35-47) % MCV 101.0 H (78-100) fl MCH 31.9 (26-32) pg MCHC 31.6 L (32-36) g/dl RDW 15.7 H (11.5-14.0) % Plt Count 195 (150-450) K/mm3 MPV 12.1 H (7.5-11.0) fl Gran % 87.7 H (36.0-66.0) % Eos # (Auto) 0.01 (0-0.5) Absolute Lymphs (auto) 1.08 (1.0-4.6) Absolute Monos (auto) 0.15 (0.0-1.3) Lymphocytes % 10.6 L (24.0-44.0) % Monocytes % 1.5 (0.0-12.0) % Eosinophils % 0.1 (0.00-5.0) % Basophils % 0.1 (0.0-0.4) % Absolute Granulocytes 8.96 H (1.4-6.9) Basophils # 0.01 (0-0.4) Sodium 139 (137-145) mmol/L Potassium 5.0 (3.5-5.1) mmol/L Chloride 105 (98-107) mmol/L Carbon Dioxide 25 (22-30) mmol/L Anion Gap 14.4 (5-15) MEQ/L BUN 26 H (7-17) mg/dL Creatinine 1.17 H (0.52-1.04) mg/dL Estimated GFR 47.5 ML/MIN Glucose 359 H (74-106) mg/dL Calcium 9.3 (8.4-10.2) mg/dL Total Bilirubin 0.50 (0.2-1.3) mg/dL AST 58 H (14-36) U/L ALT 39 H (0-35) U/L Alkaline Phosphatase 117 (38-126) U/L Troponin I < 0.012 (0.000-0.034) ng/mL Serum Total Protein 8.6 H (6.3-8.2) g/dL Albumin 4.3 (3.5-5.0) g/dL Urine Color (YELLOW) Urine Appearance (CLEAR) Urine pH (5-6) Ur Specific [place] (1.005-1.025) Urine Protein (Negative) Urine Ketones (NEGATIVE) Urine Blood (0-5) Luis/ul Urine Nitrite (NEGATIVE) Urine Bilirubin (NEGATIVE) Urine Urobilinogen (0-1) mg/dL Ur Leukocyte Esterase (NEGATIVE) Urine WBC (Auto) (0-5) /HPF Urine RBC (Auto) (0-2) /HPF U Epithel Cells (Auto) (FEW) /HPF Urine Bacteria (Auto) (NEGATIVE) /HPF Urine Mucus (Auto) (NEGATIVE) /HPF Urine Culture Reflexed (NO) Urine Glucose (NEGATIVE) mg/dL Urine Opiates Level (NEGATIVE) Ur Methadone (NEGATIVE) Urine Barbiturates (NEGATIVE) Ur Phencyclidine (PCP) (NEGATIVE) Urine Amphetamine (NEGATIVE) U Benzodiazepine Level (NEGATIVE) Urine Cocaine (NEGATIVE) Urine Marijuana (THC) (NEGATIVE) Ethyl Alcohol (0-10) mg/dL - Progress Progress: unchanged Progress Note: 11/27/19 17:32 Pt wo acute somatic disease and is not suicidal. Unable to place pt at [facility] geriatric psych and Rao. Counseled pt/family regarding: lab results, diagnosis, need for follow-up - Departure Departure Disposition: Home Clinical Impression: Depressed Condition: Stable Critical Care Time: No Referrals: MARKY MARTINEZ [Primary Care Provider] - Additional Instructions: Follow up with family MD KEARNEY. Continue current meds. Return to ER as needed Prescriptions: Hydroxyzine HCl 25 mg [Atarax 25 mg] 25 mg PO QHS #7 tablet
[2019-11-27 16:54] LABS: Absolute Neutrophil Ct (ANC) 8.96 (1.4-6.9); BASOPHIL % 0.1 % (0.0-0.4); Basophil (Absolute #) 0.01 (0-0.4); Eosinophil % 0.1 % (0.00-5.0); Eosinophil (Absolute #) 0.01 (0-0.5); Hematocrit 42.4 % (35-47); Hemoglobin 13.4 gm/dl (12.0-16.0); Lymphocyte (Absolute #) 1.08 (1.0-4.6); Lymphocytes % 10.6 % (24.0-44.0); Mean Corpuscular Hemoglobin 31.9 pg (26-32); Mean Corpuscular Hgb Concent. 31.6 g/dl (32-36); Mean Platelet Volume 12.1 fl (7.5-11.0); Monocyte (Absolute #) 0.15 (0.0-1.3); Monocytes % 1.5 % (0.0-12.0); Neutrophil % 87.7 % (36.0-66.0); Platelet Count 195 K/mm3 (150-450); Red Cell Distribution Width 15.7 % (11.5-14.0); White Blood Count 10.2 K/mm3 (4.0-10.5)
[2019-11-27 16:56] LABS: Appearance CLEAR (CLEAR); Bilirubin NEGATIVE (NEGATIVE); Blood NEGATIVE Ery/ul (0-5); Glucose >=500 mg/dL (NEGATIVE); Ketones NEGATIVE (NEGATIVE); Leukocyte Esterase NEGATIVE (NEGATIVE); Mucus SLIGHT /HPF (NEGATIVE); Nitrite NEGATIVE (NEGATIVE); Protein,Urine Dip NEGATIVE (Negative); Specific Gravity 1.011 (1.005-1.025); Urobilinogen NEGATIVE mg/dL (0-1)
--- NOTE | 2019-11-27 17:02 | XRAY ---
Indication: Short of breath. Comparison: November 15, 2019. Portable apical lordotic chest remains clear. Heart and mediastinal structures within normal limits again with a few tiny calcified nodes. No new/acute findings.
[2019-11-27 17:06] LABS: ALBUMIN 4.3 g/dL (3.5-5.0); ANION GAP 14.4 MEQ/L (5-15); BILIRUBIN,TOTAL 0.5 mg/dL (0.2-1.3); Calcium 9.3 mg/dL (8.4-10.2); Creatinine 1 1.17 mg/dL (0.52-1.04); Total Protein 8.6 g/dL (6.3-8.2)
[2019-11-27 17:07] LABS: Amphetamine,Urine NEGATIVE (NEGATIVE); Barbiturate,Urine NEGATIVE (NEGATIVE); Benzodiazepine,Urine NEGATIVE (NEGATIVE); Cocaine,Urine NEGATIVE (NEGATIVE); Methadone,Urine NEGATIVE (NEGATIVE); Opiate,Urine NEGATIVE (NEGATIVE); PCP,Urine NEGATIVE (NEGATIVE); THC,Urine NEGATIVE (NEGATIVE)
[2019-11-27 17:39] VITALS: BP 145/76
[2019-11-27 17:47] VITALS: PULSE 74; O2SAT 96
== END 2019-11-27 17:46 | disposition home or self-care (01) ==
LOC: ED 15:57
DX: F32.9 Major depressive disorder, single episode, unspecified (principal); K21.9 Gastro-esophageal reflux disease without esophagitis; Z85.038 Personal history of other malignant neoplasm of large intestine
CPT/HCPCS: 36415; 71045; 80053; 80307; 81001; 84484; 85025; 93005; 99284; G0480

== ENCOUNTER 2019-12-13 13:27 | Day surgery (SDC) | payer MEDICARE | END 2019-12-13 15:00 | disposition home or self-care (01) | LOC: SDC-PAIN 13:27 | PROVIDERS: ATTEND Psychiatry & Neurology Pain Medicine | DX: Z53.09 Procedure and treatment not carried out because of other contraindication (principal); E11.9 Type 2 diabetes mellitus without complications; J44.9 Chronic obstructive pulmonary disease, unspecified; M79.7 Fibromyalgia; Z79.899 Other long term (current) drug therapy | CPT/HCPCS: 82962 ==

== ENCOUNTER 2020-04-30 19:00 | Observation (INO) | payer MEDICARE ==
[2020-04-30 21:19] LABS: Hematocrit 40.7 % (35-47); Hemoglobin 12.8 gm/dl (12.0-16.0); Mean Cell Volume 98.5 fl (78-100); Mean Corpuscular Hgb Concent. 31.4 g/dl (32-36); Mean Platelet Volume 10.7 fl (7.5-11.0); Platelet Count 266 K/mm3 (150-450); Red Blood Count 4.13 M/mm3 (4.1-5.4); Red Cell Distribution Width 15.4 % (11.5-14.0); White Blood Count 4.8 K/mm3 (4.0-10.5)
[2020-04-30 21:31] LABS: ALBUMIN 4.1 g/dL (3.5-5.0); ANION GAP 11.7 MEQ/L (5-15); BILIRUBIN,TOTAL 0.6 mg/dL (0.2-1.3); Creatinine 1 1.04 mg/dL (0.52-1.04); EST GLOMERULAR FILTRATION RATE 54.3 ML/MIN; Potassium 3.8 mmol/L (3.5-5.1); Total Protein 8.4 g/dL (6.3-8.2)
[2020-04-30 23:14] LABS: Appearance CLEAR (CLEAR); Bilirubin NEGATIVE (NEGATIVE); Blood NEGATIVE Ery/ul (0-5); Epithelial Cells RARE /HPF (FEW); Glucose NEGATIVE (NEGATIVE); Ketones NEGATIVE (NEGATIVE); Leukocyte Esterase NEGATIVE (NEGATIVE); Mucus SLIGHT /HPF (NEGATIVE); Nitrite NEGATIVE (NEGATIVE); Protein,Urine Dip NEGATIVE (Negative); Specific Gravity 1.013 (1.005-1.025); Urobilinogen NEGATIVE mg/dL (0-1)
[2020-04-30] MEDS ORDERED: VENTOLIN COMMON CANISTER IH PRN (23:51)
[2020-05-01] MEDS: VENTOLIN COMMON CANISTER IH SCH ×4 (07:05→19:30)
[2020-05-01] MEDS: Norco 10/325 MG Tablet PO PRN ×3 (08:48→21:55)
[2020-05-01] MEDS ORDERED: ATARAX 25 MG PO PRN (09:45)
[2020-05-01] MEDS ORDERED: FLUZONE HIGH-DOSE QUAD 2020-21 IM ONE (10:00)
[2020-05-01] MEDS ORDERED: METFORMIN HCL 1000 MG PO SCH (10:00)
[2020-05-01] MEDS: Spiriva 18 Mcg/Cap Inhaler IH SCH (10:50)
[2020-05-01] MEDS: Lomotil PO SCH (11:07)
[2020-05-01] MEDS: Lotensin 10 MG PO SCH (11:07)
[2020-05-01] MEDS: NORVASC 5 MG PO SCH (11:07)
[2020-05-01] MEDS: Klor Con 10 MEQ PO SCH ×2 (11:07→21:53)
[2020-05-01] MEDS: MAG-OX 400 PO SCH ×2 (11:07→21:55)
[2020-05-01] MEDS: Glucophage XR 500 MG PO SCH (11:07)
[2020-05-01] MEDS: NEURONTIN 300 MG PO SCH ×2 (11:08→16:56)
[2020-05-01] MEDS: Lasix 40 MG PO SCH (11:08)
[2020-05-01] MEDS: Protonix 40MG Tablet PO SCH (11:08)
[2020-05-01] MEDS: Voltaren GEL TOP SCH ×3 (11:10→16:54)
--- NOTE | 2020-05-01 11:31 | HP ---
CHIEF COMPLAINT: Confusion, positive COVID test. HISTORY OF PRESENT ILLNESS: Today her daughter was admitted at the hospital with positive COVID test, some nausea, vomiting and a nosebleed. She had been symptomatic for several days. Mrs. Rawls has had no real complaints that we know of. She is very demented. She cannot live alone. She gets confused and will wander, cannot cook or care for herself. She has a colostomy which needs to be attended to also. She called her primary physician when the test came back positive and was admitted last night. MEDICATIONS: DuoNeb every four hours prn, Norvasc 5 q.d., benazepril 20 q.d., Wellbutrin 150 q.d., Voltaren gel 2 gm q.i.d. on knees. Lomotil 1 q.d., Lasix 40 q.d., gabapentin 300 every six hours for neuropathy, hydrocodone 10 PRN for neuropathy pain, abdominal pain. Atarax 25 mg PRN anxiety, Mag-Ox 400 q.d., Metformin 1,000 q.d., mirtazapine 7.5 h.s., Prilosec 20 q.d., KCL 10 b.i.d., pramipexole 0.25 h.s. for restless leg, Simvastatin 20 q.d., Spiriva 18 one puff q.d. for breathing. ALLERGIES: XANAX. MORPHINE. PHENERGAN. REACTIONS ARE UNKNOWN. PAST MEDICAL HISTORY: The patient's history is taken mostly from her daughter. Chronic obstructive pulmonary disease. Chronic knee pain. PAST SURGICAL HISTORY: Functional bowel disease. Colostomy that I am not for sure why. Family members do not know. Marked dementia. She can talk and remember some things. Remembered her daughter was throwing up blood for example. Continually asking to go home. SOCIAL HISTORY: Nonsmoker. PHYSICAL EXAMINATION: The patient is appropriately aged 79 year old white female who is a little bit agitated and asking to call her daughter to take her home. She denies any pain or fever. However she does describe probably some chills she had this morning. She said she was cold and could not get warm until the nurse brought her a blanket. She denies any cough. She said she had a little cramping in her abdomen which went away. VITAL SIGNS: Temperature 97F, pulse 100, respirations 20. HEENT: Pupils equal and reactive to light. NECK: Supple without adenopathy. CHEST: Clear. CVS: No murmurs or gallops. ABDOMEN: Obese. Colostomy on the left. No masses or organomegaly. EXTREMITIES: No edema. Moves all. Tenderness over the knees. LAB DATA AND TESTS: Blood work: Blood sugar 113, creatinine 1. Electrolytes were normal. Liver enzymes were mildly elevated. AST 56, SGPT 52, alkaline phosphatase 141. White count 4.8, hemoglobin 12, PLT count 266,000. IMPRESSION: 1) Positive COVID test. Her daughter has COVID. 2) Severe dementia with agitation. 3) Diabetes mellitus. 4) History of colon cancer with colostomy. 5) Hypertension. PLAN: At this time we are working on her social aspect as there is no one to take care of her at home. 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 I am afraid that she is going to get worse with no one to care for colostomy, give her medications or food. At this time will continue observe and see how she does. PROGNOSIS: Guarded.
[2020-05-01] MEDS: Wellbutrin XL 150 MG PO SCH (12:21)
[2020-05-01] MEDS ORDERED: Mirapex 0.5 MG Tablet PO SCH (22:00)
[2020-05-01] MEDS ORDERED: NON-FORMULARY ITEM (Pramipexole Di-Hcl [Pramipexole Dihydrochloride] 0.25 MG) PO SCH (22:00)
[2020-05-01] MEDS ORDERED: REMERON 30 MG PO SCH (22:00)
[2020-05-01] MEDS ORDERED: ZOCOR 20MG PO SCH (22:00)
[2020-05-01] MEDS ORDERED: NON-FORMULARY ITEM (Mirtazapine [Mirtazapine] 7.5 MG) PO SCH (22:00)
[2020-05-02] MEDS: Voltaren GEL TOP SCH ×3 (03:23→12:09)
[2020-05-02] MEDS: NEURONTIN 300 MG PO SCH ×3 (05:14→12:09)
[2020-05-02] MEDS: Spiriva 18 Mcg/Cap Inhaler IH SCH (08:00)
[2020-05-02] MEDS: VENTOLIN COMMON CANISTER IH SCH ×2 (08:00→11:00)
[2020-05-02] MEDS: Glucophage XR 500 MG PO SCH (09:33)
[2020-05-02] MEDS: Lasix 40 MG PO SCH (09:34)
[2020-05-02] MEDS: MAG-OX 400 PO SCH (09:34)
[2020-05-02] MEDS: Klor Con 10 MEQ PO SCH (09:34)
[2020-05-02] MEDS: Lotensin 10 MG PO SCH (09:34)
[2020-05-02] MEDS: Lomotil PO SCH (09:34)
[2020-05-02] MEDS: NORVASC 5 MG PO SCH (09:34)
[2020-05-02] MEDS: Protonix 40MG Tablet PO SCH (09:35)
[2020-05-02] MEDS: Wellbutrin XL 150 MG PO SCH (09:35)
[2020-05-02 12:16] VITALS: BP 130/76; PULSE 96; O2SAT 95
== END 2020-05-02 13:50 | disposition home or self-care (01) ==
LOC: MED SURG 19:59
PROVIDERS: ADMIT Family Medicine; ATTEND Family Medicine
DX: U07.1 COVID-19 (principal); F03.91 Unspecified dementia, unspecified severity, with behavioral disturbance; J44.9 Chronic obstructive pulmonary disease, unspecified; E11.9 Type 2 diabetes mellitus without complications; I10 Essential (primary) hypertension; Z93.3 Colostomy status; Z85.038 Personal history of other malignant neoplasm of large intestine; Z79.899 Other long term (current) drug therapy; M25.562 Pain in left knee; M25.561 Pain in right knee; Z23 Encounter for immunization
CPT/HCPCS: 36415; 80053; 81001; 82947; 85027; 93268; 94640; 94762; G0008; G0378; U0003; 90662; A9270-GY